=== PATIENT | female | born 1935 | race Caucasian/White ===

== ENCOUNTER 2017-04-08 10:17 | Observation (INO) | payer MEDICARE, OTHER ==
[2017-04-08] MEDS ORDERED: Ondansetron 4 MG/2 ML SDV IVPUSH ONE (10:39)
[2017-04-08] MEDS ORDERED: Sodium Chloride 0.9% 10 ML Syringe FLUSH PRN (10:39)
[2017-04-08] MEDS ORDERED: Sodium Chloride 0.9% 1,000 ML IV SCH (10:45)
--- NOTE | 2017-04-08 10:45 | EDM.PDOC ---
ED HPI GENERAL MEDICAL PROBLEM - General Chief Complaint: General Stated Complaint: [facility] Time Seen by Provider: 04/08/17 10:31 Source of Information: Reports: Patient, EMS History Limitations: Reports: No Limitations - History of Present Illness INITIAL COMMENTS - FREE TEXT/NARRATIVE: The patient says she was on her way to go outside and she lost her balance and fell. She did hit her head. She denies a headache and neck pain. She says she does get dizzy at times. She has no fever, chills, cough, congestion, runny nose chest pain or shortness of breath. She has no abdominal pain or dysuria but she has some nausea and vomiting. She denies any hip or arm pain. She has been eating and drinking okay but she has had generalized weakness. Onset: Sudden Duration: Minutes: Improves with: Reports: None Worsens with: Reports: None Context: Reports: Other (Fall) Associated Symptoms: Reports: Nausea/Vomiting, Weakness (Generalized). Denies: Cough, Fever/Chills, Shortness of Breath - Related Data Allergies Allergy/AdvReac Type Severity Reaction Status Date / Time No Known Allergies Allergy Verified 04/08/17 10:38 Home Meds: Home Meds Benazepril [Lotensin] 10 mg PO DAILY 04/08/17 [History] Ezetimibe [Zetia] 10 mg PO DAILY 04/08/17 [History] Simvastatin [Zocor] 40 mg PO DAILY 04/08/17 [History] amLODIPine [Norvasc] 5 mg PO DAILY 04/08/17 [History] metFORMIN HCl [Metformin HCl] 1,000 mg PO BID 04/08/17 [History] ED ROS GENERAL - Review of Systems Review Of Systems: See Below Constitutional: Reports: Weakness HEENT: Reports: No Symptoms Respiratory: Reports: No Symptoms Cardiovascular: Reports: No Symptoms Endocrine: Reports: No Symptoms GI/Abdominal: Reports: Diarrhea, Nausea, Vomiting. Denies: Abdominal Pain : Reports: No Symptoms Musculoskeletal: Reports: No Symptoms Skin: Reports: No Symptoms Neurological: Reports: Dizziness Psychiatric: Reports: No Symptoms ED EXAM, GENERAL - Physical Exam Exam: See Below Exam Limited By: No Limitations General Appearance: Alert, No Apparent Distress Ears: Normal External Exam Nose: Normal Inspection Throat/Mouth: Other (Dry mucus membranes) Head: Atraumatic, Normocephalic Neck: Normal Inspection Respiratory/Chest: No Respiratory Distress, Lungs Clear, Normal Breath Sounds Cardiovascular: Regular Rate, Rhythm, No Edema, Systolic Murmur GI/Abdominal: Soft, Non-Tender, No Organomegaly, No Mass Back Exam: Normal Inspection Extremities: Normal Inspection Neurological: Alert, Oriented, No Motor/Sensory Deficits Skin Exam: Warm, Dry EKG INTERPRETATION EKG Date: 04/08/17 Time: 11:17 Rhythm: NSR Rate (beats/min): 98 [place]: normal P-wave: present QRS: normal ST-T: normal QT: normal MS/PQ Interval: 1st degree heart block EKG Interpretation Comments: LVH Course - Vital Signs Last Recorded V/S: Last Vital Signs Temp 97.7 F 04/08/17 10:33 Pulse 123 H 04/08/17 10:33 Resp 26 H 04/08/17 10:33 BP 181/69 H 04/08/17 10:33 Pulse Ox 97 04/08/17 10:33 - Orders/Labs/Meds Orders: Active Orders 24 hr Category Date Time Status Cardiac Monitoring [RC] . DIRECTED Care 04/08/17 10:39 Active EKG Documentation Completion [RC] STAT Care 04/08/17 10:40 Active Insert Becker Catheter [Insert Urinary Catheter] [OM.PC] Care 04/08/17 11:05 Ordered Q24H Peripheral IV Care [RC] . DIRECTED Care 04/08/17 10:40 Active Urinary Catheter Assessment [RC] ASDIRECTED Care 04/08/17 11:05 Active CULTURE BLOOD [BC] Stat Lab 04/08/17 13:50 Ordered CULTURE BLOOD [BC] Stat Lab 04/08/17 13:50 Ordered Levofloxacin/Dextrose 5%-Water [Levaquin in D5W 750 MG/ Med 04/08/17 13:51 Active 150 ML] 750 mg Premix Bag 1 bag IV ONETIME Sodium Chloride 0.9% [Normal Saline] 1,000 ml Med 04/08/17 10:45 Active IV .BOLUS Sodium Chloride 0.9% [Normal Saline] 1,000 ml Med 04/08/17 13:45 Active IV ASDIRECTED Sodium Chloride 0.9% [Saline Flush] Med 04/08/17 10:39 Active 10 ml FLUSH ASDIRECTED PRN Blood Culture x2 Reflex Set [OM.PC] Stat Oth 04/08/17 13:50 Ordered ED Antiemetic Medication Reflex [OM.PC] Stat Ot 04/08/17 10:39 Ordered Peripheral IV Insertion Adult [OM.PC] Stat [facility] 04/08/17 10:39 Ordered Medication Orders Sodium Chloride (Normal Saline) 1,000 mls @ 1,000 mls/hr IV .BOLUS MINERVA Last Admin: 04/08/17 10:58 Dose: 1,000 mls/hr Sodium Chloride (Normal Saline) 1,000 mls @ 150 mls/hr IV ASDIRECTED MINERVA Last Admin: 04/08/17 13:43 Dose: 150 mls/hr Levofloxacin/Dextrose 750 mg/ (Premix) 150 mls @ 100 mls/hr IV ONETIME ONE Stop: 04/08/17 15:20 Sodium Chloride (Saline Flush) 10 ml FLUSH ASDIRECTED PRN PRN Reason: Keep Vein Open Last Admin: 04/08/17 10:50 Dose: 10 ml Labs: Laboratory Tests 04/08/17 04/08/17 04/08/17 Range/Units 11:04 11:04 11:04 WBC 10.93 H (3.98-10.04) K/mm3 RBC 3.85 L (3.98-5.22) M/mm3 Hgb 11.7 (11.2-15.7) gm/L Hct 35.6 (34.1-44.9) % MCV 92.5 (79.4-94.8) fl MCH 30.4 (25.6-32.2) pg MCHC 32.9 (32.2-35.5) g/dl RDW Std Deviation 47.4 H (36.4-46.3) fL Plt Count 369 (182-369) K/mm3 MPV 8.2 L (9.4-12.3) fl Neut % (Auto) 82.8 H (34.0-71.1) % Lymph % (Auto) 9.3 L (19.3-51.7) % [place] % (Auto) 6.2 (4.7-12.5) % Eos % (Auto) 0.9 (0.7-5.8) Baso % (Auto) 0.3 (0.1-1.2) % Neut # (Auto) 9.04 H (1.56-6.13) K/mm3 Lymph # (Auto) 1.02 L (1.18-3.74) K/mm3 [place] # (Auto) 0.68 H (0.24-0.36) K/mm3 Eos # (Auto) 0.10 (0.04-0.36) K/mm3 Baso # (Auto) 0.03 (0.01-0.08) K/mm3 Manual Slide Review Abnormal smear Sodium 132 L (136-145) mEq/L Potassium 3.9 (3.5-5.1) mEq/L Chloride 96 L (98-107) mEq/L Carbon Dioxide 19 L (21-32) mEq/L Anion Gap 20.9 H (5-15) BUN 7 (7-18) mg/dL Creatinine 0.5 L (0.55-1.02) mg/dL Est Cr Clr Drug Dosing 62.12 mL/min Estimated GFR (MDRD) > 60 (>60) mL/min BUN/Creatinine Ratio 14.0 (14-18) Glucose 115 (83-115) mg/dL Calcium 8.1 L (8.5-10.1) mg/dL Total Bilirubin 0.5 (0.2-1.0) mg/dL AST 17 (15-37) U/L ALT 14 (14-59) U/L Alkaline Phosphatase 50 (46-116) U/L Troponin I 0.047 (0.00-0.056) ng/mL B-Natriuretic Peptide 86 (0-100) pg/mL Total Protein 7.2 (6.4-8.2) g/dl Albumin 3.6 (3.4-5.0) g/dl Globulin 3.6 gm/dL Albumin/Globulin Ratio 1.0 (1-2) Urine Color (Yellow) Urine Appearance (Clear) Urine pH (5.0-8.0) Ur Specific [place] (1.005-1.030) Urine Protein (Negative) Urine Glucose (UA) (Negative) Urine Ketones (Negative) Urine Occult Blood (Negative) Urine Nitrite (Negative) Urine Bilirubin (Negative) Urine Urobilinogen (0.2-1.0) Ur Leukocyte Esterase (Negative) Urine RBC (0-5) /hpf Urine WBC (0-5) /hpf Ur Epithelial Cells (0-5) /hpf Urine Bacteria (FEW) /hpf Urine Mucus (FEW) /hpf 04/08/ Range/Units 11:10 WBC (3.98-10.04) K/mm3 RBC (3.98-5.22) M/mm3 Hgb (11.2-15.7) gm/L Hct (34.1-44.9) % MCV (79.4-94.8) fl MCH (25.6-32.2) pg MCHC (32.2-35.5) g/dl RDW Std Deviation (36.4-46.3) fL Plt Count (182-369) K/mm3 MPV (9.4-12.3) fl Neut % (Auto) (34.0-71.1) % Lymph % (Auto) (19.3-51.7) % [place] % (Auto) (4.7-12.5) % Eos % (Auto) (0.7-5.8) Baso % (Auto) (0.1-1.2) % Neut # (Auto) (1.56-6.13) K/mm3 Lymph # (Auto) (1.18-3.74) K/mm3 [place] # (Auto) (0.24-0.36) K/mm3 Eos # (Auto) (0.04-0.36) K/mm3 Baso # (Auto) (0.01-0.08) K/mm3 Manual Slide Review Sodium (136-145) mEq/L Potassium (3.5-5.1) mEq/L Chloride (98-107) mEq/L Carbon Dioxide (21-32) mEq/L Anion Gap (5-15) BUN (7-18) mg/dL Creatinine (0.55-1.02) mg/dL Est Cr Clr Drug Dosing mL/min Estimated GFR (MDRD) (>60) mL/min BUN/Creatinine Ratio (14-18) Glucose (83-115) mg/dL Calcium (8.5-10.1) mg/dL Total Bilirubin (0.2-1.0) mg/dL AST (15-37) U/L ALT (14-59) U/L Alkaline Phosphatase (46-116) U/L Troponin I (0.00-0.056) ng/mL B-Natriuretic Peptide (0-100) pg/mL Total Protein (6.4-8.2) g/dl Albumin (3.4-5.0) g/dl Globulin gm/dL Albumin/Globulin Ratio (1-2) Urine Color Yellow (Yellow) Urine Appearance Clear (Clear) Urine pH 6.0 (5.0-8.0) Ur Specific [place] 1.020 (1.005-1.030) Urine Protein 1+ H (Negative) Urine Glucose (UA) Negative (Negative) Urine Ketones 1+ H (Negative) Urine Occult Blood Negative (Negative) Urine Nitrite Negative (Negative) Urine Bilirubin Negative (Negative) Urine Urobilinogen 0.2 (0.2-1.0) Ur Leukocyte Esterase Negative (Negative) Urine RBC Not seen (0-5) /hpf Urine WBC 0-5 (0-5) /hpf Ur Epithelial Cells 0-5 (0-5) /hpf Urine Bacteria Not seen (FEW) /hpf Urine Mucus Not seen (FEW) /hpf Meds: Medications Generic Name Dose Route Start Last Admin Trade Name Freq PRN Reason Stop Dose Admin Sodium Chloride 1,000 mls @ 1,000 mls/hr 04/08/17 10:45 04/08/17 10:58 Normal Saline IV 1,000 mls/hr .BOLUS MINERVA Administration Sodium Chloride 1,000 mls @ 150 mls/hr 04/08/17 13:45 04/08/17 13:43 Normal Saline IV 150 mls/hr ASDIRECTED MINERVA Administration Levofloxacin/Dextrose 750 mg/ 150 mls @ 100 mls/hr 04/08/17 13:51 Premix IV 04/08/17 15:20 ONETIME ONE Sodium Chloride 10 ml 04/08/17 10:39 04/08/17 10:50 Saline Flush FLUSH 10 ml ASDIRECTED PRN Administration Keep Vein Open Discontinued Medications Generic Name Dose Route Start Last Admin Trade Name Freq PRN Reason Stop Dose Admin Ondansetron HCl 4 mg 04/08/17 10:39 04/08/17 11:00 Zofran IVPUSH 04/08/17 10:40 4 mg ONETIME ONE Administration - Re-Assessments/Exams Free Text/Narrative Re-Assessment/Exam: 04/08/17 10:49 I ordered an IV NS 1L bolus, zofran 4mg IV, labs, UA, EKG, and CT of her head. 04/08/17 14:01 Her EKG shows a NSR with LVH and nothing acute. The CT of her head shows mild senescent change, mild mucosal thickening and fluid within the left mastoid sinus most likely incidental if patient has no symptoms of mastoiditis, no acute intracranial abnormality is seen. No skull fracture is identified. Her WBC is elevated at 10.93. Her Na was a little low at 132. Her troponin is negative. Her BNP was negative. Her UA shows no UTI. Her CXR shows increasing lung markings from prior study most likely representing diffuse bilateral bronchitis as read by Dr Limon. She has bronchitis versus early pneumonia, nausea, vomiting, and dehydration. I have ordered blood cultures and levaquin 750mg IV. I feel the patient needs to be admitted. I called Dr Tejada and she agreed to the admission. Departure - Departure Time of Disposition: 14:10 Disposition: Refer to Observation Condition: good Clinical Impression: Dehydration, Bronchitis Fall Qualifiers: Encounter type: initial encounter Qualified Code(s): W19.XXXA - Unspecified fall, initial encounter Nausea and vomiting Qualifiers: Vomiting type: unspecified Vomiting Intractability: non-intractable Qualified Code(s): R11.2 - Nausea with vomiting, unspecified - Discharge Information Referrals: Pako Jalloh Jr, MD [Primary Care Provider] - Forms: ED Department Discharge - My Orders Last 24 Hours: My Active Orders 04/08/17 10:39 Cardiac Monitoring [RC] . DIRECTED Sodium Chloride 0.9% [Saline Flush] 10 ml FLUSH ASDIRECTED PRN ED Antiemetic Medication Reflex [OM.PC] Stat Peripheral IV Insertion Adult [OM.PC] Stat 04/08/17 10:40 EKG Documentation Completion [RC] STAT Peripheral IV Care [RC] . DIRECTED 04/08/17 10:45 Sodium Chloride 0.9% [Normal Saline] 1,000 ml IV .BOLUS 04/08/17 11:05 Insert Becker Catheter [Insert Urinary Catheter] [OM.PC] Q24H Urinary Catheter Assessment [RC] ASDIRECTED 04/08/17 13:45 Sodium Chloride 0.9% [Normal Saline] 1,000 ml IV ASDIRECTED 04/08/17 13:50 CULTURE BLOOD [BC] Stat CULTURE BLOOD [BC] Stat Blood Culture x2 Reflex Set [OM.PC] Stat 04/08/17 13:51 Levofloxacin/Dextrose 5%-Water [Levaquin in D5W 750 MG/150 ML] 750 mg Premix Bag 1 bag IV ONETIME - Assessment/Plan Last 24 Hours: My Active Orders 04/08/17 10:39 Cardiac Monitoring [RC] . DIRECTED Sodium Chloride 0.9% [Saline Flush] 10 ml FLUSH ASDIRECTED PRN ED Antiemetic Medication Reflex [OM.PC] Stat Peripheral IV Insertion Adult [OM.PC] Stat 04/08/17 10:40 EKG Documentation Completion [RC] STAT Peripheral IV Care [RC] . DIRECTED 04/08/17 10:45 Sodium Chloride 0.9% [Normal Saline] 1,000 ml IV .BOLUS 04/08/17 11:05 Insert Becker Catheter [Insert Urinary Catheter] [OM.PC] Q24H Urinary Catheter Assessment [RC] ASDIRECTED 04/08/17 13:45 Sodium Chloride 0.9% [Normal Saline] 1,000 ml IV ASDIRECTED 04/08/17 13:50 CULTURE BLOOD [BC] Stat CULTURE BLOOD [BC] Stat Blood Culture x2 Reflex Set [OM.PC] Stat 04/08/17 13:51 Levofloxacin/Dextrose 5%-Water [Levaquin in D5W 750 MG/150 ML] 750 mg Premix Bag 1 bag IV ONETIME
--- NOTE | 2017-04-08 11:59 | CT ---
Head CT Technique: Multiple axial sections through the brain were obtained. Intravenous contrast was not utilized. Comparison: No previous intracranial imaging is available. Findings: Ventricles along with basal cisterns and sulci over the convexities are moderately prominent. Very minimal diminished density is noted within portions of the periventricular white matter compatible with small vessel ischemic demyelination change. No other abnormal parenchymal densities are seen. No evidence of intracranial hemorrhage. No midline shift or mass effect is seen. Bone window settings were reviewed which shows no acute calvarial abnormality. Small amount of mucosal thickening and fluid is seen within the left mastoid sinus. Atherosclerotic calcifications are seen within the vertebral vessels and carotid siphon. Impression: 1. Mild senescent change as noted above. 2. Mild mucosal thickening and fluid within the left mastoid sinus most likely incidental if patient has no symptoms of mastoiditis. 3. No acute intracranial abnormality is seen. No skull fracture is identified. Diagnostic code #3
[2017-04-08] MEDS: Sodium Chloride 0.9% 1,000 ML IV SCH ×2 (13:43→20:39)
--- NOTE | 2017-04-08 13:49 | CR ---
Chest: Portable view of the chest was obtained. Comparison: Previous chest x-ray of 09/19/12. Heart size appears within normal limits. Tortuous thoracic aorta is seen. Lung markings are diffusely increased which are more prominent than prior exam. Bony structures are osteopenic. Mild degenerative change is scattered within the spine. Impression: 1. Increasing lung markings from prior study most likely representing diffuse bilateral bronchitis. Diagnostic code #3
[2017-04-08] MEDS ORDERED: Levofloxacin/Dextrose 5%-Water 750 MG in Premix Bag 1 BAG IV ONE (13:51)
[2017-04-08] MEDS ORDERED: Pneumococcal Polyvalent-23 Vaccine 0.5 ML SDV IM ONE (15:54)
[2017-04-08] MEDS ORDERED: Flu Vaccine 2016-17(36Mos+)/PF 60 MCG/0.5 ML Syringe IM ONE (15:54)
--- NOTE | 2017-04-08 16:41 | PCM.HP ---
H&P History of Present Illness - General Date of Service: 04/08/17 Admit Problem/Dx: Admission Diagnosis/Problem Admission Diagnosis/Problem Bronchitis Source of Information: Patient, Family, Provider History Limitations: Reports: No Limitations - History of Present Illness Initial Comments - Free Text/Narative: 81 year old female with a history of frequent falls presents with a complaint of generalized weakness. CXR suggest probable bronchitis, white blood cell ct is mildly elevated. The patient denies SOB, CP, fever/chills; however does admit to nausea/vomiting. She has also had dizziness. There has been no nasal congestion; she does complaint of a dry cough. Her UA is unremarkable. She will be admitted to observation. Onset of Symptoms: Reports: Sudden Symptom Onset Date: 04/08/17 Duration of Symptoms: Reports: Hour(s):, Getting Worse Location: Reports: Generalized Quality: Reports: Same as Previous Episode Severity: Moderate Improves with: Reports: Medication Worsens with: Reports: None Associated Symptoms: Reports: Malaise, Weakness - Related Data Allergies/Adverse Reactions: Allergies Allergy/AdvReac Type Severity Reaction Status Date / Time No Known Allergies Allergy Verified 04/08/17 10:38 Home Medications: Home Meds Benazepril [Lotensin] 10 mg PO DAILY 04/08/17 [History] Ezetimibe [Zetia] 10 mg PO DAILY 04/08/17 [History] Simvastatin [Zocor] 40 mg PO DAILY 04/08/17 [History] amLODIPine [Norvasc] 5 mg PO DAILY 04/08/17 [History] metFORMIN HCl [Metformin HCl] 1,000 mg PO BID 04/08/17 [History] Past Medical History - Past Health History Medical/Surgical History: Denies Medical/Surgical History HEENT History: Reports: Hard of Hearing Cardiovascular History: Reports: Hypertension 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: Endocrine/Metabolic History: Reports: Diabetes, Type II - Past Surgical History HEENT Surgical History: Reports: None Cardiovascular Surgical History: Reports: None GI Surgical History: Reports: Appendectomy, Cholecystectomy Endocrine Surgical History: Reports: None Dermatological Surgical History: Reports: None Social & Family History - Family History Family Medical History: Noncontributory - Tobacco Use Smoking Status *Q: Never Smoker Second Hand Smoke Exposure: No - Caffeine Use Caffeine Use: Reports: Coffee Other Caffeine Use: 1 pot a day Caffeine Use Comment: daily - Recreational Drug Use Recreational Drug Use: No H&P Review of Systems - Review of Systems: Review Of Systems: See Below General: Reports: Malaise, Weakness HEENT: Reports: No Symptoms Pulmonary: Reports: No Symptoms Cardiovascular: Reports: Lightheadedness Gastrointestinal: Reports: Nausea, Vomiting Genitourinary: Reports: No Symptoms Musculoskeletal: Reports: No Symptoms Skin: Reports: No Symptoms Psychiatric: Reports: No Symptoms Neurological: Reports: Gait Disturbance Hematologic/Lymphatic: Reports: No Symptoms Immunologic: Reports: No Symptoms Exam - Exam Exam: See Below - Vital Signs Vital Signs: Last Vital Signs Temp 36.5 C 04/08/17 15:43 Pulse 99 04/08/17 15:43 Resp 16 04/08/17 15:43 BP 150/57 H 04/08/17 15:43 Pulse Ox 98 04/08/17 15:43 Weight: 41.957 kg - Exam Quality Assessment: Supplemental Oxygen General: Alert, Oriented, Cooperative HEENT: Conjunctiva Clear, Nares Patent, Normal Nasal Septum, Pupils Equal, Pupils Reactive Neck: Supple, Trachea Midline Lungs: Normal Respiratory Effort, Decreased Breath Sounds (left posterior), Wheezing Cardiovascular: Regular Rate, Regular Rhythm Abdomen: Normal Bowel Sounds, Soft (Female) Exam: Deferred Rectal (Female) Exam: Deferred Back Exam: Normal Inspection Extremities: Normal Inspection Skin: Warm Neurological: Cranial Nerves Intact, Normal Speech Neuro Extensive - Mental Status: Alert, Oriented x3, Normal Mood/Affect, Normal Cognition, Memory Intact Neuro Extensive - Motor, Sensory, Reflexes: CN II-XII Intact Psychiatric: Alert, Normal Affect, Normal Mood - Patient Data Result Diagrams: 04/08/17 11:04 04/08/17 11:04 *Q Meaningful Use (ADM) - VTE *Q VTE Criteria *Q: - Stroke *Q Stroke Criteria *Q: - AMI *Q AMI Criteria *Q: - Problem List (1) Bronchitis SNOMED Code(s): 40451117 ICD Code: J40 - BRONCHITIS, NOT SPECIFIED ACUTE OR CHRONIC Status: Acute Current Visit: Yes (2) Dehydration SNOMED Code(s): 15791237 ICD Code: E86.0 - DEHYDRATION Status: Acute Current Visit: Yes (3) Fall SNOMED Code(s): 7038559, 221108217 ICD Code: W19.XXXA - UNSPECIFIED FALL, INITIAL ENCOUNTER Status: Acute Current Visit: Yes Qualifiers: Encounter type: initial encounter Qualified Code(s): W19.XXXA - Unspecified fall, initial encounter (4) Nausea and vomiting SNOMED Code(s): 53887054 ICD Code: R11.2 - NAUSEA WITH VOMITING, UNSPECIFIED Status: Acute Current Visit: Yes Qualifiers: Vomiting type: unspecified Vomiting Intractability: non-intractable Qualified Code(s): R11.2 - Nausea with vomiting, unspecified Problem List Initiated/Reviewed/Updated: Yes Orders Last 24hrs: Active Orders 24 hr Category Date Time Status Clear Liquid Diet [DIET] Diet 04/08/17 Dinner Active Medication Orders Sodium Chloride (Normal Saline) 1,000 mls @ 1,000 mls/hr IV .BOLUS [facility] Last Admin: 04/08/17 10:58 Dose: 1,000 mls/hr Sodium Chloride (Normal Saline) 1,000 mls @ 150 mls/hr IV ASDIRECTED MINERVA Last Admin: 04/08/17 13:43 Dose: 150 mls/hr Sodium Chloride (Saline Flush) 10 ml FLUSH ASDIRECTED PRN PRN Reason: Keep Vein Open Last Admin: 04/08/17 10:50 Dose: 10 ml Assessment/Plan Comment:: Impression: Unsteady gait, chronic URI with dehydration, query change in bowel habit Nausea/Vomiting/generalized weakness, etiology unknown Diabetes Mellitus, infrequently checks her blood sugar Hyponatremia Leukocytosis Plan: IVF Change ATB to Zithromax/Rocephin Antiemetic Clear Liquids SW re: Home Health//PT/OT DVT/GI prophylaxis
[2017-04-08] MEDS ORDERED: 50% Dextrose in Water 50 ML Syringe IVPUSH PRN (16:49)
[2017-04-08] MEDS ORDERED: Metoclopramide 10 MG/2 ML SDV IVPUSH PRN (17:30)
[2017-04-08] MEDS ORDERED: Ondansetron 4 MG/2 ML SDV IVPUSH PRN (17:30)
[2017-04-08] MEDS: Insulin Aspart 100 Units/ML 3 ML Pen SUBCUT SCH ×2 (18:34→22:24)
[2017-04-08] MEDS: Pantoprazole 40 MG Vial IVPUSH SCH (18:37)
[2017-04-08] MEDS: METFORMIN 1000 MG PO SCH (18:39)
[2017-04-08] MEDS ORDERED: Temazepam 7.5 MG Cap PO PRN (18:45)
[2017-04-08] MEDS ORDERED: Benzonatate 100 MG Cap PO PRN (18:45)
[2017-04-08] MEDS ORDERED: Non-Formulary Medication 1 Each (Metformin Hcl [Metformin Hcl] 1,000 MG) PO SCH (21:00)
[2017-04-08] MEDS: Simvastatin 40 MG Tab PO SCH (21:25)
[2017-04-09] MEDS: Pantoprazole 40 MG Vial IVPUSH SCH ×2 (06:15→17:29)
[2017-04-09] MEDS: METFORMIN 1000 MG PO SCH ×2 (06:16→16:54)
[2017-04-09] MEDS: Insulin Aspart 100 Units/ML 3 ML Pen SUBCUT SCH ×4 (06:20→21:08)
[2017-04-09] MEDS: EZETIMIBE 10 MG PO SCH (08:47)
[2017-04-09] MEDS: Azithromycin 500 MG in Sodium Chloride 0.9% 250 ML IV SCH (08:48)
[2017-04-09] MEDS: Enoxaparin 40 MG/0.4 ML Syringe SUBCUT SCH (08:48)
[2017-04-09] MEDS ORDERED: cefTRIAXone 2 GM in Sodium Chloride 0.9% 100 ML IV SCH (10:00)
[2017-04-09] MEDS ORDERED: Magnesium Sulfate/Water 2 GM in Premix Bag 1 BAG IV ONE (10:15)
--- NOTE | 2017-04-09 10:50 | PCM.PN ---
- General Info Date of Service: 04/09/17 Functional Status: Reports: pain controlled, tolerating diet, ambulating, urinating - Review of Systems General: Reports: Weakness, Fatigue HEENT: Reports: no symptoms Pulmonary: Reports: no symptoms Cardiovascular: Reports: No Symptoms Gastrointestinal: Reports: No symptoms Genitourinary: Reports: no symptoms Musculoskeletal: Reports: no symptoms Skin: Reports: no symptoms Neurological: Reports: Dizziness Psychiatric: Reports: no symptoms - Patient Data Vitals - most recent: Last Vital Signs Temp 36.9 C 04/09/17 08:10 Pulse 75 04/09/17 08:10 Resp 16 04/09/17 08:10 BP 128/86 04/09/17 08:47 Pulse Ox 98 04/09/17 08:10 Orthostatic Blood Pressure [ 118/50 Standing] Orthostatic Blood Pressure [ 126/56 Sitting] Orthostatic Blood Pressure [ 106/77 Supine] Weight - most recent: 41.64 kg I&O - last 24 hours: Intake & Output 04/08/17 04/09/17 04/09/17 22:59 06:59 14:59 Intake Total 120 2800 Output Total 1100 Balance 120 1700 Lab Results last 24 hrs: Laboratory Results - last 24 hr 04/08/17 04/09/17 04/09/17 Range/Units 22:22 06:19 06:32 WBC 11.00 H (3.98-10.04) K/mm3 RBC 3.49 L (3.98-5.22) M/mm3 Hgb 10.5 L (11.2-15.7) gm/L Hct 31.8 L (34.1-44.9) % MCV 91.1 (79.4-94.8) fl MCH 30.1 (25.6-32.2) pg MCHC 33.0 (32.2-35.5) g/dl RDW Std Deviation 45.4 (36.4-46.3) fL Plt Count 361 (182-369) K/mm3 MPV 8.2 L (9.4-12.3) fl Neut % (Auto) 81.6 H (34.0-71.1) % Lymph % (Auto) 8.1 L (19.3-51.7) % [place] % (Auto) 9.6 (4.7-12.5) % Eos % (Auto) 0.4 L (0.7-5.8) Baso % (Auto) 0.1 (0.1-1.2) % Neut # (Auto) 8.98 H (1.56-6.13) K/mm3 Lymph # (Auto) 0.89 L (1.18-3.74) K/mm3 [place] # (Auto) 1.06 H (0.24-0.36) K/mm3 Eos # (Auto) 0.04 (0.04-0.36) K/mm3 Baso # (Auto) 0.01 (0.01-0.08) K/mm3 Manual Slide Review Abnormal smear Sodium (136-145) mEq/L Potassium (3.5-5.1) mEq/L Chloride (98-107) mEq/L Carbon Dioxide (21-32) mEq/L Anion Gap (5-15) BUN (7-18) mg/dL Creatinine (0.55-1.02) mg/dL Est Cr Clr Drug Dosing mL/min Estimated GFR (MDRD) (>60) mL/min BUN/Creatinine Ratio (14-18) Glucose (83-115) mg/dL POC Glucose 95 104 (83-110) mg/dL Hemoglobin A1c (4.50-6.20) % Calcium (8.5-10.1) mg/dL Magnesium (1.8-2.4) mg/dl C-Reactive Protein (<1.0) mg/dL TSH 3rd Generation (0.358-3.74) uIU/mL Mycoplasma pneumon IgM (NEGATIVE) 04/09/17 04/09/17 04/09/17 Range/Units 06:32 06:32 06:32 WBC (3.98-10.04) K/mm3 RBC (3.98-5.22) M/mm3 Hgb (11.2-15.7) gm/L Hct (34.1-44.9) % MCV (79.4-94.8) fl MCH (25.6-32.2) pg MCHC (32.2-35.5) g/dl RDW Std Deviation (36.4-46.3) fL Plt Count (182-369) K/mm3 MPV (9.4-12.3) fl Neut % (Auto) (34.0-71.1) % Lymph % (Auto) (19.3-51.7) % [place] % (Auto) (4.7-12.5) % Eos % (Auto) (0.7-5.8) Baso % (Auto) (0.1-1.2) % Neut # (Auto) (1.56-6.13) K/mm3 Lymph # (Auto) (1.18-3.74) K/mm3 [place] # (Auto) (0.24-0.36) K/mm3 Eos # (Auto) (0.04-0.36) K/mm3 Baso # (Auto) (0.01-0.08) K/mm3 Manual Slide Review Sodium 132 L (136-145) mEq/L Potassium 3.8 (3.5-5.1) mEq/L Chloride 96 L (98-107) mEq/L Carbon Dioxide 22 (21-32) mEq/L Anion Gap 17.8 H (5-15) BUN 4 L (7-18) mg/dL Creatinine 0.4 L (0.55-1.02) mg/dL Est Cr Clr Drug Dosing 71.28 mL/min Estimated GFR (MDRD) > 60 (>60) mL/min BUN/Creatinine Ratio 10.0 L (14-18) Glucose 88 (83-115) mg/dL POC Glucose (83-110) mg/dL Hemoglobin A1c 5.20 (4.50-6.20) % Calcium 8.4 L (8.5-10.1) mg/dL Magnesium 1.0 L (1.8-2.4) mg/dl C-Reactive Protein 0.5 (<1.0) mg/dL TSH 3rd Generation 2.233 (0.358-3.74) uIU/mL Mycoplasma pneumon IgM Negative (NEGATIVE) Uli Results last 24 hrs: Microbiology 04/08/17 18:02 Influenza Type A Antigen Screen - Final Nasopharyngeal Swab - Nare, Left NEGATIVE INFLUENZA A VIRUS AG Influenza Type B Antigen Screen - Final NEGATIVE INFLUENZA B VIRUS AG Med Orders - Current: Current Medications Amlodipine Besylate (Norvasc) 5 mg PO DAILY [facility] Last Admin: 04/09/17 08:47 Dose: 5 mg Benzonatate (Tessalon Perles) 200 mg PO TID PRN PRN Reason: Cough Dextrose/Water (Dextrose 50% In Water) 50 ml IVPUSH ASDIRECTED PRN PRN Reason: Hypoglycemia Ezetimibe (Zetia) 10 mg PO DAILY [facility] [place] Last Admin: 04/09/17 08:47 Dose: 10 mg Enoxaparin Sodium (Lovenox) 40 mg SUBCUT DAILY [facility] Last Admin: 04/09/17 08:48 Dose: 40 mg Azithromycin 500 mg/ Sodium (Chloride) 250 mls @ 250 mls/hr IV Q24H [facility] Last Admin: 04/09/17 08:48 Dose: 250 mls/hr Ceftriaxone Sodium 2 gm/ (Sodium Chloride) 100 mls @ 200 mls/hr IV Q24H [facility] Last Admin: 04/09/17 10:04 Dose: 200 mls/hr Magnesium Sulfate 2 gm/ Premix 50 mls @ 25 mls/hr IV ONETIME ONE Stop: 04/09/17 12:14 Insulin Aspart (Novolog) 0 unit SUBCUT QIDACANDBED [facility] [place] PRN Reason: Protocol Last Admin: 04/09/17 06:20 Dose: Not Given Metoclopramide HCl (Reglan) 10 mg IVPUSH Q6H PRN PRN Reason: Nausea/Vomiting Metformin 1000 Mg (Tablet Own Med) 1,000 mg PO BIDMEALS [facility] Last Admin: 04/09/17 06:16 Dose: 1,000 mg Ondansetron HCl (Zofran) 4 mg IVPUSH Q8H PRN PRN Reason: Nausea/Vomiting Oral Electrolytes (Thermotabs) 1 each PO BID [facility] Stop: 04/11/17 21:01 Pantoprazole Sodium (Protonix Iv) 40 mg IVPUSH Q12H [facility] Last Admin: 04/09/17 06:15 Dose: 40 mg Simvastatin (Zocor) 40 mg PO BEDTIME [facility] Last Admin: 04/08/17 21:25 Dose: 40 mg Sodium Chloride (Saline Flush) 10 ml FLUSH ASDIRECTED PRN PRN Reason: Keep Vein Open Last Admin: 04/08/17 10:50 Dose: 10 ml Temazepam (Restoril) 7.5 mg PO BEDTIME PRN PRN Reason: Insomnia Discontinued Medications Sodium Chloride (Normal Saline) 1,000 mls @ 1,000 mls/hr IV .BOLUS [facility] [place] Last Admin: 04/08/17 10:58 Dose: 1,000 mls/hr Sodium Chloride (Normal Saline) 1,000 mls @ 150 mls/hr IV ASDIRECTED [facility] Last Admin: 04/08/17 20:39 Dose: 150 mls/hr Levofloxacin/Dextrose 750 mg/ (Premix) 150 mls @ 100 mls/hr IV ONETIME ONE Stop: 04/08/17 15:20 Last Admin: 04/08/17 14:25 Dose: 100 mls/hr Influenza Virus Vaccine (Fluzone/Fluarix Vaccine) 60 mcg IM .ONCE ONE Stop: 04/08/17 15:55 Non-Formulary Medication (Metformin Hcl [Metformin Hcl]) 1,000 mg PO BID [facility] Ondansetron HCl (Zofran) 4 mg IVPUSH ONETIME ONE Stop: 04/08/17 10:40 Last Admin: 04/08/17 11:00 Dose: 4 mg Pneumococcal Polyvalent Vaccine (Pneumovax 23) 0.5 ml IM .ONCE ONE Stop: 04/08/17 15:55 - Exam Quality Assessment: DVT prophylaxis General: alert, oriented, cooperative, no acute distress HEENT: Pupils equal, Pupils reactive, EOMI Neck: supple, trachea midline Lungs: Normal respiratory effort Cardiovascular: Regular Rate, Regular Rhythm Abdomen: bowel sounds present, soft, no tenderness, no distension (Female) Exam: Deferred Back Exam: Normal Inspection Extremities: normal pulses Skin: warm Neurological: no new focal deficit, normal gait, normal speech Psy/Mental Status: alert, normal affect, normal mood - Problem List & Annotations (1) Bronchitis SNOMED Code(s): 03305188 Code(s): J40 - BRONCHITIS, NOT SPECIFIED ACUTE OR CHRONIC Status: Acute Current Visit: Yes (2) Dehydration SNOMED Code(s): 60187959 Code(s): E86.0 - DEHYDRATION Status: Acute Current Visit: Yes (3) Fall SNOMED Code(s): 1099826, 329301465 Code(s): W19.XXXA - UNSPECIFIED FALL, INITIAL ENCOUNTER Status: Acute Current Visit: Yes Qualifiers: Encounter type: initial encounter Qualified Code(s): W19.XXXA - Unspecified fall, initial encounter (4) Nausea and vomiting SNOMED Code(s): 37191351 Code(s): R11.2 - NAUSEA WITH VOMITING, UNSPECIFIED Status: Acute Current Visit: Yes Qualifiers: Vomiting type: unspecified Vomiting Intractability: non-intractable Qualified Code(s): R11.2 - Nausea with vomiting, unspecified - Problem List Review Problem List Initiated/Reviewed/Updated: Yes - My Orders Last 24 Hours: My Active Orders 04/08/17 16:42 Blood Glucose Check, Bedside [RC] BIDAC 04/08/17 16:49 Accu Check [Blood Glucose Check, Bedside] [RC] QIDACANDBED Dextrose 50% in Water 50 ml IVPUSH ASDIRECTED PRN 04/08/17 16:51 Activity as Tolerated [RC] .Routine 04/08/17 16:53 Diabetes Education [RC] DAILY 04/08/17 16:56 Consult to Occupational Therapy [OT Evaluation and Treatment] [CONS] Routine Consult to Physical Therapy [PT Evaluation and Treatment] [CONS] Routine 04/08/17 17:00 Insulin Aspart [NovoLOG] See Protocol SUBCUT QIDACANDBED Resuscitation Status Routine 04/08/17 17:21 Vital Signs [RC] 09,15,21,03 04/08/17 17:30 Metoclopramide [Reglan] 10 mg IVPUSH Q6H PRN Ondansetron [Zofran] 4 mg IVPUSH Q8H PRN 04/08/17 18:00 Pantoprazole [ProTONIX IV] 40 mg IVPUSH Q12H 04/08/17 18:08 Antiembolic Devices [RC] BID MANUELA Hose [Antiembolic Hose] [OM.PC] Routine 04/08/17 18:23 metFORMIN HCl [Metformin HCl] 1,000 mg PO BIDMEALS 04/08/17 18:45 Benzonatate [Tessalon Perles] 200 mg PO TID PRN Temazepam [Restoril] 7.5 mg PO BEDTIME PRN 04/08/17 21:00 Simvastatin [Zocor] 40 mg PO BEDTIME 04/08/17 Dinner Clear Liquid Diet [DIET] 04/09/17 09:00 Consult to Gym Supervisor [CONS] Routine Azithromycin [Zithromax] 500 mg Sodium Chloride 0.9% [Normal Saline] 250 ml IV Q24H Enoxaparin [Lovenox] 40 mg SUBCUT DAILY Ezetimibe [Zetia] 10 mg PO DAILY amLODIPine [Norvasc] 5 mg PO DAILY 04/09/17 10:00 cefTRIAXone [Rocephin] 2 gm Sodium Chloride 0.9% [Normal Saline] 100 ml IV Q24H 04/09/17 10:15 Magnesium Sulfate/Water [Magnesium Sulfate 2 GM in Water 50 ML] 2 gm Premix Bag 1 bag IV ONETIME 04/09/17 10:30 Potassium Chloride/NaCl [Thermotabs] 1 each PO BID 04/10/17 05:00 CBC WITH AUTO DIFF [HEME] DAILY MAGNESIUM [CHEM] DAILY 04/10/17 05:52 BASIC METABOLIC PANEL,BMP [CHEM] DAILY 04/10/17 08:00 CXR [Chest 2V] [CR] Routine 04/11/17 07:00 CBC W/O DIFF,HEMOGRAM [HEME] MOTH@0700 04/15/17 07:00 CBC W/O DIFF,HEMOGRAM [HEME] MOTH@0700 04/18/17 07:00 CBC W/O DIFF,HEMOGRAM [HEME] MOTH@0700 04/22/17 07:00 CBC W/O DIFF,HEMOGRAM [HEME] MOTH@0700 04/25/17 07:00 CBC W/O DIFF,HEMOGRAM [HEME] MOTH@0700 04/29/17 07:00 CBC W/O DIFF,HEMOGRAM [HEME] MOTH@0700 - Plan Plan:: Impression: Unsteady gait, chronic URI with dehydration Negative orthostatics Diabetes Mellitus, infrequently checks her blood sugar Hyponatremia Leukocytosis Plan: IVF Change ATB to Zithromax/Rocephin Antiemetic Heart healthy SW re: Home Health, possible assisted living//PT/OT DVT/GI prophylaxis Continue observation
[2017-04-09] MEDS: Potassium Chloride/Sodium Chloride Tab PO SCH ×2 (10:57→21:07)
[2017-04-09] MEDS: Simvastatin 40 MG Tab PO SCH (21:07)
[2017-04-10] MEDS: Pantoprazole 40 MG Vial IVPUSH SCH (06:21)
[2017-04-10] MEDS: Insulin Aspart 100 Units/ML 3 ML Pen SUBCUT SCH ×2 (06:50→10:43)
[2017-04-10] MEDS ORDERED: cefTRIAXone 1 GM in Sodium Chloride 0.9% 100 ML IV SCH ×2 (07:05→10:00)
[2017-04-10 08:30] VITALS: BP 125/54
[2017-04-10] MEDS: Enoxaparin 40 MG/0.4 ML Syringe SUBCUT SCH (08:55)
[2017-04-10] MEDS: Potassium Chloride/Sodium Chloride Tab PO SCH (08:55)
[2017-04-10] MEDS: EZETIMIBE 10 MG PO SCH (08:55)
[2017-04-10] MEDS: Azithromycin 500 MG in Sodium Chloride 0.9% 250 ML IV SCH (08:56)
[2017-04-10] MEDS ORDERED: Pantoprazole 40 MG Tab.CR PO SCH ×2 (09:39→18:00)
--- NOTE | 2017-04-10 11:43 | CR ---
Chest: Two views of the chest were obtained. Comparison: Previous chest x-ray 04/08/17. Diffuse interstitial change is seen throughout both lungs. Findings are fairly stable from most recent exam. Gas dilated bowel is seen beneath the hemidiaphragms possibly due to ileus. Heart does not appear enlarged. Bony structures are within normal limits for the patient's age. Impression: 1. Diffuse interstitial change throughout both lungs remaining stable from previous exam. 2. Slightly air-filled loops of bowel within the abdomen possibly due to ileus. Diagnostic code #3
[2017-04-10] MEDS ORDERED: Magnesium Oxide 400 MG Tab PO SCH (11:45)
--- NOTE | 2017-04-10 12:23 | PCM.DCSUM1 ---
Discharge Summary - Hospital Course Free Text/Narrative:: 81 year old female with frequent falls, was treated for a URI and AUTI during her observation stay. Adjustment was made of her metformin, the patient had occasional asymptomatic hypoglycemia. She was assessed by PT/OT, a consult was completed. She is being DC to [facility] with home health. A face to face has been performed pre DC. Primary Dx Acute bronchitis AUTI Dehydration Activity Up with use of walker or with assistance Diet Heart healthy Consult PT/OT Outpatient: Home Health Follow up 2-[address] Shubham Hodge Resume home meds, Metformin decreased to 500 mg BID Ceftin 500 mg BID for 1 week Mag Oxide 400 mg BID for 2 weeks. - Discharge Data Discharge Date: 04/10/17 Discharge Disposition: Home, Self-Care 01 Condition: Good - Discharge Diagnosis/Problem(s) (1) Bronchitis SNOMED Code(s): 59520704 ICD Code: J40 - BRONCHITIS, NOT SPECIFIED ACUTE OR CHRONIC Status: Acute (2) Dehydration SNOMED Code(s): 99129196 ICD Code: E86.0 - DEHYDRATION Status: Acute (3) Fall SNOMED Code(s): 1850133, 913044960 ICD Code: W19.XXXA - UNSPECIFIED FALL, INITIAL ENCOUNTER Status: Acute Qualifiers: Qualified Code(s): W19.XXXA - Unspecified fall, initial encounter (4) Nausea and vomiting SNOMED Code(s): 96143964 ICD Code: R11.2 - NAUSEA WITH VOMITING, UNSPECIFIED Status: Acute Qualifiers: Qualified Code(s): R11.2 - Nausea with vomiting, unspecified - Patient Summary/Data Consults: Consultations 04/08/17 16:56 Consult to Occupational Therapy [OT Evaluation and Treatment] [CONS] Routine Consult to Physical Therapy [PT Evaluation and Treatment] [CONS] Routine 04/09/17 09:00 Consult to Disaster Recovery Analyst [CONS] Routine - Patient Instructions Diet: Heart Healthy Diet Activity: As Tolerated Driving: Do Not Drive Showering/Bathing: March Shower Notify Provider of: Increased Pain - Discharge Plan Prescriptions/Med Rec: Benazepril [Lotensin] 10 mg PO DAILY #30 tablet Magnesium Oxide 400 mg PO BID #30 tablet Home Medications: Home Meds Ezetimibe [Zetia] 10 mg PO DAILY 04/08/17 [History] Simvastatin [Zocor] 40 mg PO DAILY 04/08/17 [History] amLODIPine [Norvasc] 5 mg PO DAILY 04/08/17 [History] Benazepril [Lotensin] 10 mg PO DAILY #30 tablet 04/10/17 [Rx] Magnesium Oxide 400 mg PO BID #30 tablet 04/10/17 [Rx] metFORMIN HCl [Metformin HCl] 500 mg PO BID #0 04/10/17 [Rx] Patient Handouts: Dehydration, Adult, [id number], Acute Bronchitis, Easy-to- Read Referrals: Pako Jalloh Jr, MD [Primary Care Provider] - (Please see Dr. Jalloh at [facility] on Monday April 17, 2017 with a 2:15 PM check-in.) - Discharge Summary/Plan Comment DC Time >30 min.: No - General Info Date of Service: 04/08/17 Functional Status: Reports: pain controlled, tolerating diet, ambulating, urinating - Review of Systems General: Reports: No Symptoms HEENT: Reports: no symptoms Pulmonary: Reports: no symptoms Cardiovascular: Reports: No Symptoms Gastrointestinal: Reports: No symptoms Genitourinary: Reports: no symptoms Musculoskeletal: Reports: no symptoms Skin: Reports: no symptoms Neurological: Reports: No Symptoms Psychiatric: Reports: no symptoms - Patient Data Vitals - Most Recent: Last Vital Signs Temp 37.0 C 04/10/17 08:29 Pulse 87 04/10/17 08:29 Resp 20 04/10/17 08:29 BP 125/54 L 04/10/17 08:55 Pulse Ox 98 04/10/17 08:29 Orthostatic Blood Pressure [ 118/50 Standing] Orthostatic Blood Pressure [ 126/56 Sitting] Orthostatic Blood Pressure [ 106/77 Supine] Weight - Most Recent: 40.914 kg I&O - Last 24 hours: Intake & Output 04/09/17 04/10/17 04/10/17 22:59 06:59 14:59 Intake Total 1105 300 320 Output Total 600 900 Balance 505 -600 320 Lab Results - Last 24 hrs: Laboratory Results - last 24 hr 04/09/17 04/09/17 04/10/17 Range/Units 16:52 21:00 06:23 WBC (3.98-10.04) K/mm3 RBC (3.98-5.22) M/mm3 Hgb (11.2-15.7) gm/L Hct (34.1-44.9) % MCV (79.4-94.8) fl MCH (25.6-32.2) pg MCHC (32.2-35.5) g/dl RDW Std Deviation (36.4-46.3) fL Plt Count (182-369) K/mm3 MPV (9.4-12.3) fl Neut % (Auto) (34.0-71.1) % Lymph % (Auto) (19.3-51.7) % [place] % (Auto) (4.7-12.5) % Eos % (Auto) (0.7-5.8) Baso % (Auto) (0.1-1.2) % Neut # (Auto) (1.56-6.13) K/mm3 Lymph # (Auto) (1.18-3.74) K/mm3 [place] # (Auto) (0.24-0.36) K/mm3 Eos # (Auto) (0.04-0.36) K/mm3 Baso # (Auto) (0.01-0.08) K/mm3 Sodium (136-145) mEq/L Potassium (3.5-5.1) mEq/L Chloride (98-107) mEq/L Carbon Dioxide (21-32) mEq/L Anion Gap (5-15) BUN (7-18) mg/dL Creatinine (0.55-1.02) mg/dL Est Cr Clr Drug Dosing mL/min Estimated GFR (MDRD) (>60) mL/min BUN/Creatinine Ratio (14-18) Glucose (83-115) mg/dL POC Glucose 79 L 78 L 68 L (83-110) mg/dL Calcium (8.5-10.1) mg/dL Magnesium (1.8-2.4) mg/dl 04/10/17 04/10/17 04/10/17 Range/Units 06:50 06:50 06:50 WBC 8.10 (3.98-10.04) K/mm3 RBC 3.60 L (3.98-5.22) M/mm3 Hgb 11.0 L (11.2-15.7) gm/L Hct 32.9 L (34.1-44.9) % MCV 91.4 (79.4-94.8) fl MCH 30.6 (25.6-32.2) pg MCHC 33.4 (32.2-35.5) g/dl RDW Std Deviation 47.7 H (36.4-46.3) fL Plt Count 380 H (182-369) K/mm3 MPV 8.1 L (9.4-12.3) fl Neut % (Auto) 75.0 H (34.0-71.1) % Lymph % (Auto) 11.5 L (19.3-51.7) % [place] % (Auto) 11.9 (4.7-12.5) % Eos % (Auto) 1.2 (0.7-5.8) Baso % (Auto) 0.2 (0.1-1.2) % Neut # (Auto) 6.07 (1.56-6.13) K/mm3 Lymph # (Auto) 0.93 L (1.18-3.74) K/mm3 [place] # (Auto) 0.96 H (0.24-0.36) K/mm3 Eos # (Auto) 0.10 (0.04-0.36) K/mm3 Baso # (Auto) 0.02 (0.01-0.08) K/mm3 Sodium 134 L (136-145) mEq/L Potassium 3.6 (3.5-5.1) mEq/L Chloride 97 L (98-107) mEq/L Carbon Dioxide 23 (21-32) mEq/L Anion Gap 17.6 H (5-15) BUN 6 L (7-18) mg/dL Creatinine 0.5 L (0.55-1.02) mg/dL Est Cr Clr Drug Dosing 56.03 mL/min Estimated GFR (MDRD) > 60 (>60) mL/min BUN/Creatinine Ratio 12.0 L (14-18) Glucose 127 H (83-115) mg/dL POC Glucose (83-110) mg/dL Calcium 8.9 (8.5-10.1) mg/dL Magnesium 1.4 L (1.8-2.4) mg/dl 04/10/17 Range/Units 10:42 WBC (3.98-10.04) K/mm3 RBC (3.98-5.22) M/mm3 Hgb (11.2-15.7) gm/L Hct (34.1-44.9) % MCV (79.4-94.8) fl MCH (25.6-32.2) pg MCHC (32.2-35.5) g/dl RDW Std Deviation (36.4-46.3) fL Plt Count (182-369) K/mm3 MPV (9.4-12.3) fl Neut % (Auto) (34.0-71.1) % Lymph % (Auto) (19.3-51.7) % [place] % (Auto) (4.7-12.5) % Eos % (Auto) (0.7-5.8) Baso % (Auto) (0.1-1.2) % Neut # (Auto) (1.56-6.13) K/mm3 Lymph # (Auto) (1.18-3.74) K/mm3 [place] # (Auto) (0.24-0.36) K/mm3 Eos # (Auto) (0.04-0.36) K/mm3 Baso # (Auto) (0.01-0.08) K/mm3 Sodium (136-145) mEq/L Potassium (3.5-5.1) mEq/L Chloride (98-107) mEq/L Carbon Dioxide (21-32) mEq/L Anion Gap (5-15) BUN (7-18) mg/dL Creatinine (0.55-1.02) mg/dL Est Cr Clr Drug Dosing mL/min Estimated GFR (MDRD) (>60) mL/min BUN/Creatinine Ratio (14-18) Glucose (83-115) mg/dL POC Glucose 129 H (83-110) mg/dL Calcium (8.5-10.1) mg/dL Magnesium (1.8-2.4) mg/dl Med Orders - Current: Current Medications Discontinued Medications Amlodipine Besylate (Norvasc) 5 mg PO DAILY [facility] Last Admin: 04/10/17 08:55 Dose: 5 mg Benzonatate (Tessalon Perles) 200 mg PO TID PRN PRN Reason: Cough Dextrose/Water (Dextrose 50% In Water) 50 ml IVPUSH ASDIRECTED PRN PRN Reason: Hypoglycemia Ezetimibe (Zetia) 10 mg PO DAILY [facility] Last Admin: 04/10/17 08:55 Dose: 10 mg Enoxaparin Sodium (Lovenox) 40 mg SUBCUT DAILY [facility] Last Admin: 04/10/17 08:55 Dose: 40 mg Sodium Chloride (Normal Saline) 1,000 mls @ 1,000 mls/hr IV .BOLUS [facility] Last Admin: 04/08/17 10:58 Dose: 1,000 mls/hr Sodium Chloride (Normal Saline) 1,000 mls @ 150 mls/hr IV ASDIRECTED [facility] Last Admin: 04/08/17 20:39 Dose: 150 mls/hr Levofloxacin/Dextrose 750 mg/ (Premix) 150 mls @ 100 mls/hr IV ONETIME ONE Stop: 04/08/17 15:20 Last Admin: 04/08/17 14:25 Dose: 100 mls/hr Azithromycin 500 mg/ Sodium (Chloride) 250 mls @ 250 mls/hr IV Q24H [facility] Last Admin: 04/10/17 08:56 Dose: 250 mls/hr Ceftriaxone Sodium 2 gm/ (Sodium Chloride) 100 mls @ 200 mls/hr IV Q24H [facility] Last Admin: 04/09/17 10:04 Dose: 200 mls/hr Magnesium Sulfate 2 gm/ Premix 50 mls @ 25 mls/hr IV ONETIME ONE Stop: 04/09/17 12:14 Last Admin: 04/09/17 10:57 Dose: 25 mls/hr Ceftriaxone Sodium 1 gm/ (Sodium Chloride) 100 mls @ 200 mls/hr IV Q24H [facility] Ceftriaxone Sodium 1 gm/ (Sodium Chloride) 100 mls @ 200 mls/hr IV Q24H [facility] Last Admin: 04/10/17 09:00 Dose: 200 mls/hr Influenza Virus Vaccine (Fluzone/Fluarix Vaccine) 60 mcg IM .ONCE ONE Stop: 04/08/17 15:55 Insulin Aspart (Novolog) 0 unit SUBCUT QIDACANDBED [facility] PRN Reason: Protocol Last Admin: 04/10/17 10:43 Dose: Not Given Magnesium Oxide (Magnesium Oxide) 400 mg PO BID [facility] Metoclopramide HCl (Reglan) 10 mg IVPUSH Q6H PRN PRN Reason: Nausea/Vomiting Non-Formulary Medication (Metformin Hcl [Metformin Hcl]) 1,000 mg PO BID [facility] Metformin 1000 Mg (Tablet Own Med) 1,000 mg PO BIDMEALS [facility] Last Admin: 04/09/17 16:54 Dose: Not Given Ondansetron HCl (Zofran) 4 mg IVPUSH ONETIME ONE Stop: 04/08/17 10:40 Last Admin: 04/08/17 11:00 Dose: 4 mg Ondansetron HCl (Zofran) 4 mg IVPUSH Q8H PRN PRN Reason: Nausea/Vomiting Oral Electrolytes (Thermotabs) 1 each PO BID [facility] Stop: 04/11/17 21:01 Last Admin: 04/10/17 08:55 Dose: 1 each Pantoprazole Sodium (Protonix Iv) 40 mg IVPUSH Q12H [facility] Last Admin: 04/10/17 06:21 Dose: 40 mg Pantoprazole Sodium (Protonix) 40 mg PO Q12H [facility] Pantoprazole Sodium (Protonix) 40 mg PO Q12H [facility] Pneumococcal Polyvalent Vaccine (Pneumovax 23) 0.5 ml IM .ONCE ONE Stop: 04/08/17 15:55 Simvastatin (Zocor) 40 mg PO BEDTIME [facility] Last Admin: 04/09/17 21:07 Dose: 40 mg Sodium Chloride (Saline Flush) 10 ml FLUSH ASDIRECTED PRN PRN Reason: Keep Vein Open Last Admin: 04/08/17 10:50 Dose: 10 ml Temazepam (Restoril) 7.5 mg PO BEDTIME PRN PRN Reason: Insomnia - Exam Quality Assessment: Reports: DVT prophylaxis General: Reports: alert, oriented, cooperative, no acute distress HEENT: Reports: Pupils equal, Pupils reactive, EOMI Neck: Reports: supple, trachea midline Lungs: Reports: Normal respiratory effort Cardiovascular: Reports: Regular Rate, Regular Rhythm Abdomen: Reports: bowel sounds present, soft, no tenderness, no distension (Female) Exam: Deferred Rectal (Female) Exam: Deferred Back Exam: Reports: Normal Inspection Extremities: Reports: normal pulses Skin: Reports: warm Neurological: Reports: no new focal deficit, normal gait, normal speech Psy/Mental Status: Reports: alert, normal affect, normal mood *Q Meaningful Use (DIS) - VTE *Q VTE Criteria *Q: - Stroke *Q Stroke Criteria *Q: - AMI *Q AMI Criteria *Q:
== END 2017-04-10 12:07 | disposition home or self-care (01) ==
LOC: JD.ED 10:17 → JD.MS 15:39
PROVIDERS: ADMIT Internal Medicine Cardiovascular Disease; ATTEND Internal Medicine Cardiovascular Disease
DX: J20.9 Acute bronchitis, unspecified (principal); N39.0 Urinary tract infection, site not specified; E86.0 Dehydration; R11.2 Nausea with vomiting, unspecified; I10 Essential (primary) hypertension; E11.9 Type 2 diabetes mellitus without complications; R26.81 Unsteadiness on feet; E87.1 Hypo-osmolality and hyponatremia; D72.829 Elevated white blood cell count, unspecified; W19.XXXA Unspecified fall, initial encounter; Z90.49 Acquired absence of other specified parts of digestive tract; Z79.84 Long term (current) use of oral hypoglycemic drugs; Z79.899 Other long term (current) drug therapy
CPT/HCPCS: 36415; 70450; 71010; 71020; 80048; 80053; 81001; 82962; 83036; 83735; 83880; 84443; 84484; 85025; 86140; 86738; 87040; 87804; 93005; 96361; 96365; 96366; 96367; 96372; 96375; 96376; 97110; 97116; 97162; 97166; 97535; 99285; A9270; C9113; G0378; J0456; J0696; J1650; J1956; J2405; J7030; J7040; J7050; P9612; 99284; J3475

== ENCOUNTER 2018-02-21 13:00 | Emergency (ER) | payer MEDICARE, OTHER ==
[2018-02-21 13:20] VITALS: BP 129/50
--- NOTE | 2018-02-21 13:22 | EDM.PDOC ---
ED HPI GENERAL MEDICAL PROBLEM - General Chief Complaint: Gastrointestinal Problem Stated Complaint: [facility] Time Seen by Provider: 02/21/18 13:21 Source of Information: Reports: Patient - History of Present Illness INITIAL COMMENTS - FREE TEXT/NARRATIVE: Patient is brought here by ambulance from [place] where she has resided for the last 8 months. Primary complaint per [facility] nursing was weight loss and weakness. Patient states that she is having no pain whatsoever. She does feel that she has "no strength". She states that she has not been eating well that she has not had an appetite. Patient denies any shortness of breath or chest pain. She has no abdominal pain /vomiting/diarrhea. She had a normal bowel movement this morning. Denies any headache or dyspnea. Denies any confusion, though she reports that her memory is "not what it used to be". Chronic medical conditions of hyperlipidemia, diabetes and hypertension. Her PCP is Dr. Jalloh. Patient is a full code - Related Data Allergies Allergy/AdvReac Type Severity Reaction Status Date / Time No Known Allergies Allergy Verified 02/21/18 13:15 Home Meds: Home Meds Simvastatin [Zocor] 40 mg PO DAILY 04/08/17 [History] Magnesium Oxide 400 mg PO BID #30 tablet 04/10/17 [Rx] Acetaminophen [Tylenol] 325 mg PO Q8HR PRN 02/21/18 [History] Benazepril [Lotensin] 5 mg PO DAILY 02/21/18 [History] Megestrol [Megace 40 MG/ML Susp] 10 ml PO DAILY #600 ml 02/21/18 [Rx] metFORMIN HCl [Metformin HCl] 500 mg PO DAILY 02/21/18 [History] Past Medical History - Past Health History Medical/Surgical History: Denies Medical/Surgical History HEENT History: Reports: Hard of Hearing Cardiovascular History: Reports: Hypertension 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: Endocrine/Metabolic History: Reports: Diabetes, Type II - Past Surgical History HEENT Surgical History: Reports: None Cardiovascular Surgical History: Reports: None GI Surgical History: Reports: Appendectomy, Cholecystectomy Endocrine Surgical History: Reports: None Dermatological Surgical History: Reports: None Social & Family History - Family History Family Medical History: Noncontributory - Tobacco Use Smoking Status *Q: Never Smoker Second Hand Smoke Exposure: No - Caffeine Use Caffeine Use: Reports: Coffee Other Caffeine Use: 1 pot a day Caffeine Use Comment: daily - Recreational Drug Use Recreational Drug Use: No ED ROS GENERAL - Review of Systems Review Of Systems: See Below Constitutional: Reports: Malaise, Weakness, Fatigue, Decreased Appetite, Weight Loss (10lbs). Denies: Fever, Chills HEENT: Reports: No Symptoms Respiratory: Reports: Cough. Denies: Shortness of Breath, Wheezing, Pleuritic Chest Pain, Sputum Cardiovascular: Reports: Blood Pressure Problem (on medication for hypertension) . Denies: Chest Pain, Dyspnea on Exertion, Edema, Lightheadedness Endocrine: Reports: Fatigue GI/Abdominal: Denies: Abdominal Pain, Diarrhea, Nausea, Vomiting : Reports: No Symptoms Musculoskeletal: Reports: Other (weakness) Skin: Reports: No Symptoms Neurological: Reports: Other (memory loss) Psychiatric: Reports: No Symptoms ED EXAM, GENERAL - Physical Exam Exam: See Below Exam Limited By: No Limitations General Appearance: Alert, Cachetic Ears: Hearing Loss Throat/Mouth: Normal Inspection, Normal Oropharynx Head: Atraumatic, Normocephalic Neck: Normal Inspection, Supple, Non-Tender Respiratory/Chest: No Respiratory Distress, Lungs Clear, Normal Breath Sounds Cardiovascular: Normal Peripheral Pulses, Regular Rate, Rhythm, Systolic Murmur (III/ systolic murmur) GI/Abdominal: Normal Bowel Sounds, Soft, Non-Tender Extremities: Normal Inspection, Normal Capillary Refill. No: Pedal Edema Neurological: Alert, Oriented Psychiatric: Normal Affect, Normal Mood Skin Exam: Warm, Dry, Intact Lymphatic: No Adenopathy EKG INTERPRETATION EKG Date: 02/21/18 Time: 13:50 Rhythm: NSR Rate (Beats/Min): 88 Course - Vital Signs Last Recorded V/S: Last Vital Signs Temp 97.8 F 02/21/18 13:15 Pulse 94 02/21/18 13:15 Resp 30 H 02/21/18 13:15 BP 129/50 L 02/21/18 13:15 Pulse Ox 95 02/21/18 13:15 - Orders/Labs/Meds Orders: Active Orders 24 hr Category Date Time Status EKG 12 Lead [EKG Documentation Completion] [RC] STAT Care 02/21/18 13:33 Active Chest Abdomen Pelvis w Cont [CT] Stat Exams 02/21/18 15:58 Ordered UA W/MICROSCOPIC [URIN] Stat Lab 02/21/18 15:29 Ordered Sodium Chloride 0.9% [Normal Saline] 1,000 ml Med 02/21/18 15:26 Active IV ONETIME Medication Orders Sodium Chloride (Normal Saline) 1,000 mls @ 250 mls/hr IV ONETIME ONE Stop: 02/21/18 19:25 Last Admin: 02/21/18 15:32 Dose: 250 mls/hr Labs: Laboratory Tests 02/21/18 02/21/18 02/21/18 Range/Units 13:45 13:45 13:45 WBC 23.70 H (3.98-10.04) K/mm3 RBC 3.83 L (3.98-5.22) M/mm3 Hgb 11.3 (11.2-15.7) gm/L Hct 33.1 L (34.1-44.9) % MCV 86.4 (79.4-94.8) fl MCH 29.5 (25.6-32.2) pg MCHC 34.1 (32.2-35.5) g/dl RDW Std Deviation 42.3 (36.4-46.3) fL Plt Count 404 H (182-369) K/mm3 MPV 8.7 L (9.4-12.3) fl Neutrophils % (Manual) 91 H (40-60) % Band Neutrophils % 2 (0-10) % Lymphocytes % (Manual) 6 L (20-40) % Atypical Lymphs % 0 % Monocytes % (Manual) 1 L (2-10) % Eosinophils % (Manual) 0 L (0.7-5.8) % Basophils % (Manual) 0 L (0.1-1.2) Platelet Estimate Adequate RBC Morph Comment Normal Sodium 131 L (136-145) mEq/L Potassium 3.9 (3.5-5.1) mEq/L Chloride 92 L (98-107) mEq/L Carbon Dioxide 29 (21-32) mEq/L Anion Gap 13.9 (5-15) BUN 17 (7-18) mg/dL Creatinine 0.5 L (0.55-1.02) mg/dL Est Cr Clr Drug Dosing TNP Estimated GFR (MDRD) > 60 (>60) mL/min BUN/Creatinine Ratio 34.0 H (14-18) Glucose 132 H (83-115) mg/dL Calcium 8.6 (8.5-10.1) mg/dL Magnesium 1.8 (1.8-2.4) mg/dl Total Bilirubin 0.7 (0.2-1.0) mg/dL AST 16 (15-37) U/L ALT 15 (14-59) U/L Alkaline Phosphatase 53 (46-116) U/L Troponin I < 0.017 (0.00-0.056) ng/mL C-Reactive Protein (<1.0) mg/dL Total Protein 5.9 L (6.4-8.2) g/dl Albumin 2.5 L (3.4-5.0) g/dl Globulin 3.4 gm/dL Albumin/Globulin Ratio 0.7 L (1-2) TSH 3rd Generation 0.770 (0.358-3.74) uIU/mL Urine Color (Yellow) Urine Appearance (Clear) Urine pH (5.0-8.0) Ur Specific Glen (1.005-1.030) Urine Protein (Negative) Urine Glucose (UA) (Negative) Urine Ketones (Negative) Urine Occult Blood (Negative) Urine Nitrite (Negative) Urine Bilirubin (Negative) Urine Urobilinogen (0.2-1.0) Ur Leukocyte Esterase (Negative) Urine RBC (0-5) /hpf Urine WBC (0-5) /hpf Ur Epithelial Cells (0-5) /hpf Urine Bacteria (FEW) /hpf Urine Mucus (FEW) /hpf 02/21/18 02/21/18 Range/Units 14:55 15:29 WBC (3.98-10.04) K/mm3 RBC (3.98-5.22) M/mm3 Hgb (11.2-15.7) gm/L Hct (34.1-44.9) % MCV (79.4-94.8) fl MCH (25.6-32.2) pg MCHC (32.2-35.5) g/dl RDW Std Deviation (36.4-46.3) fL Plt Count (182-369) K/mm3 MPV (9.4-12.3) fl Neutrophils % (Manual) (40-60) % Band Neutrophils % (0-10) % Lymphocytes % (Manual) (20-40) % Atypical Lymphs % % Monocytes % (Manual) (2-10) % Eosinophils % (Manual) (0.7-5.8) % Basophils % (Manual) (0.1-1.2) Platelet Estimate RBC Morph Comment Sodium (136-145) mEq/L Potassium (3.5-5.1) mEq/L Chloride (98-107) mEq/L Carbon Dioxide (21-32) mEq/L Anion Gap (5-15) BUN (7-18) mg/dL Creatinine (0.55-1.02) mg/dL Est Cr Clr Drug Dosing Estimated GFR (MDRD) (>60) mL/min BUN/Creatinine Ratio (14-18) Glucose (83-115) mg/dL Calcium (8.5-10.1) mg/dL Magnesium (1.8-2.4) mg/dl Total Bilirubin (0.2-1.0) mg/dL AST (15-37) U/L ALT (14-59) U/L Alkaline Phosphatase (46-116) U/L Troponin I (0.00-0.056) ng/mL C-Reactive Protein 21.8 H* (<1.0) mg/dL Total Protein (6.4-8.2) g/dl Albumin (3.4-5.0) g/dl Globulin gm/dL Albumin/Globulin Ratio (1-2) TSH 3rd Generation (0.358-3.74) uIU/mL Urine Color Yellow (Yellow) Urine Appearance Clear (Clear) Urine pH 6.5 (5.0-8.0) Ur Specific Glen 1.020 (1.005-1.030) Urine Protein 1+ H (Negative) Urine Glucose (UA) Negative (Negative) Urine Ketones 2+ H (Negative) Urine Occult Blood Negative (Negative) Urine Nitrite Negative (Negative) Urine Bilirubin 1+ H (Negative) Urine Urobilinogen 0.2 (0.2-1.0) Ur Leukocyte Esterase Negative (Negative) Urine RBC Not seen (0-5) /hpf Urine WBC 0-5 (0-5) /hpf Ur Epithelial Cells 0-5 (0-5) /hpf Urine Bacteria Few (FEW) /hpf Urine Mucus Few (FEW) /hpf Meds: Medications Generic Name Dose Route Start Last Admin Trade Name Freq PRN Reason Stop Dose Admin Sodium Chloride 1,000 mls @ 250 mls/hr 02/21/18 15:26 02/21/18 15:32 Normal Saline IV 02/21/18 19:25 250 mls/hr ONETIME ONE Administration Discontinued Medications Generic Name Dose Route Start Last Admin Trade Name Murtaza PRN Reason Stop Dose Admin Diatrizoate Meglum/Diatrizoate Sod 90 ml 02/21/18 16:39 02/21/18 16:51 Gastrografin 37% PO 02/21/18 16:40 45 ml ONETIME ONE Administration Lactated Ringer's 1,000 mls @ 999 mls/hr 02/21/18 13:33 02/21/18 13:57 Ringers, Lactated IV 02/21/18 14:33 999 mls/hr .BOLUS ONE Administration Iopamidol 100 ml 02/21/18 16:39 02/21/18 16:52 Isovue-370 (76%) IVPUSH 02/21/18 16:40 86 ml ONETIME ONE Administration Sodium Chloride 10 ml 02/21/18 16:39 02/21/18 16:51 Saline Flush FLUSH 02/21/18 16:40 10 ml ONETIME ONE Administration - Radiology Interpretation Free Text/Narrative:: Chest x-ray demonstrates diffuse increased lung markings believed to represent fairly severe fibrosis. - Re-Assessments/Exams Free Text/Narrative Re-Assessment/Exam: Patient is cachectic in appearance. She is in no pain. Lungs sounds decreased at the bases but otherwise normal bilaterally. No abdominal tenderness. EKG demonstrates normal sinus rhythm with a rate of 88. Chest x-ray demonstrates diffuse increased lung markings suspected to be severe fibrosis. WBC elevated at 23,700 with 91% neutrophils and 2% bands. Sodium is decreased at 131. Anion gap 13.9. Total protein is decreased at 5.9 and albumin is 2.5. Urinalysis demonstrates protein and ketones. CT demonstrates moderate to severe interstitial lung disease most prominent in the lung bases. There is also an additional rounded focus in the superior segment of the left lower lobe. May need to consider biopsy of this. Patient also has mediastinal and paraesophageal adenopathy. Patient does have duodenitis and diverticulosis. History of fracture of T12 and L3. Lab work in combination with CT certainly suspicious for possible malignancy and patient will need further evaluation. She does have an appointment with her PCP on Saturday. As for her decreased appetite and significant weight loss, certainly this could be related to the above conditions. Will trial Megace for a week until she sees her PCP. Electrolyte abnormalities are likely due to her not eating, though this will need to be reassessed. 02/21/18 17:45 Departure - Departure Time of Disposition: 17:53 Disposition: Home, Self-Care 01 Condition: Fair Clinical Impression: Weight loss, unintentional, ILD (interstitial lung disease), Dehydration, Hyponatremia Leukocytosis Qualifiers: Leukocytosis type: unspecified Qualified Code(s): D72.829 - Elevated white blood cell count, unspecified - Discharge Information Prescriptions: Megestrol [Megace 40 MG/ML Susp] 10 ml PO DAILY #600 ml Instructions: Leukocytosis, Dehydration, Adult, [id number] Referrals: Pako Jalloh Jr, MD [Primary Care Provider] - Forms: ED Department Discharge Additional Instructions: Start Megace daily to increase your appetite. Follow-up with Dr Jalloh on Saturday as planned or return to ER if any worsening of symptoms. - My Orders Last 24 Hours: My Active Orders 02/21/18 13:33 EKG 12 Lead [EKG Documentation Completion] [RC] STAT 02/21/18 15:26 Sodium Chloride 0.9% [Normal Saline] 1,000 ml IV ONETIME 02/21/18 15:29 UA W/MICROSCOPIC [URIN] Stat 02/21/18 15:58 Chest Abdomen Pelvis w Cont [CT] Stat - Assessment/Plan Last 24 Hours: My Active Orders 02/21/18 13:33 EKG 12 Lead [EKG Documentation Completion] [RC] STAT 02/21/18 15:26 Sodium Chloride 0.9% [Normal Saline] 1,000 ml IV ONETIME 02/21/18 15:29 UA W/MICROSCOPIC [URIN] Stat 02/21/18 15:58 Chest Abdomen Pelvis w Cont [CT] Stat
[2018-02-21] MEDS ORDERED: Lactated Ringers 1,000 ML IV ONE (13:33)
--- NOTE | 2018-02-21 14:46 | CR ---
Chest: Two views of the chest were obtained. Comparison: Prior chest x-ray of 04/10/17. Lung markings are diffusely increased. Findings are felt to be fairly stable from prior study most likely representing diffuse fibrosis. Heart size at the upper limits of normal. Tortuous thoracic aorta is seen. Bony structures are osteopenic. Mild degenerative spurring is scattered within the spine with minimal scoliosis. No acute osseous abnormality is appreciated. Impression: 1. Diffuse increased lung markings believed to represent fairly severe fibrosis. 2. Other incidental findings. Diagnostic code #3
[2018-02-21] MEDS ORDERED: Sodium Chloride 0.9% 1,000 ML IV ONE (15:26)
[2018-02-21] MEDS ORDERED: Sodium Chloride 0.9% 10 ML Syringe FLUSH ONE (16:39)
[2018-02-21] MEDS ORDERED: Iopamidol 755 Mg/ML 100 ML Bottle IVPUSH ONE (16:39)
[2018-02-21] MEDS ORDERED: Diatrizoate Meglumine/Diatrizoate Sodium 37% 120 ML Bottle PO ONE (16:39)
--- NOTE | 2018-02-22 10:18 | CT ---
CT chest Technique: Multiple axial sections through the chest were obtained. Intravenous contrast was utilized. Comparison: Prior chest x-ray performed earlier on the same day (1:51 PM). No prior chest CT is available. Findings: Atherosclerotic change is noted within the thoracic aorta. No aneurysm is seen. Small mediastinal lymph nodes are seen which are felt to be within normal limits. Heart is slightly enlarged. Coronary artery calcification is seen. No axillary adenopathy is seen. Diffuse interstitial fibrosis is seen. More focal parenchymal density is seen within both posterior lung bases. Nodular density is noted within the approximate superior segment of the left lower lung measuring about 2.1 cm in size. No pleural effusions are seen. Bone window settings were reviewed showing scattered degenerative change within the spine. Impression: 1. Fairly severe interstitial fibrosis. 2. More focal areas of density within both posterior lung bases. Without previous study, uncertain if findings represent change from chronic aspiration, pneumonia or more focal areas of scarring. 3. Nodular density within the approximate superior segment of the left lower lung with similar differential, although difficult to exclude a neoplastic nodule. Note: Follow-up CT chest without contrast in 4 months would be helpful to determine stability. Diagnostic code #9 I agree with preliminary report issued by [facility] ([facility] preliminary report dictated on 02/21/18, 6:16 PM Central Time) CT abdomen and pelvis Technique: Multiple axial sections were obtained from above the dome of the diaphragm inferiorly through the pubic symphysis. Intravenous and oral contrast has been given. Comparison: No previous abdominal imaging. Delayed images were also obtained through the abdomen and pelvis. Findings: Mild intrahepatic biliary duct dilatation is seen. Distal common bile duct measures prominent at 8 mm. These findings are likely chronic and due to previous gallbladder surgery. No focal abnormality is identified within the liver. Questionable wall thickening within the duodenum is noted. Spleen appears within normal limits. Adrenal glands show no discrete nodule. Kidneys show symmetric contrast enhancement. Small cortical cyst is noted within the mid left kidney measuring 4 mm. No additional abnormality is seen within the kidneys. Delayed images shows contrast throughout the ureters into the bladder. Pancreas appears within normal limits. Aorta shows diffuse atherosclerotic calcification which continues into the iliac vessels. No aneurysm is seen. No retroperitoneal adenopathy is identified. No pelvic mass or adenopathy is seen. Small amount of air is identified within the bladder. Appendix is not definitely visualized. Bone window settings were reviewed which shows compression deformities of T12 and L3. Vacuum disc phenomena is noted within the L2-3 disc. Impression: 1. Compression deformities of T12 and L3. These are most likely old. 2. Questionable wall thickening within the duodenum. Difficult to exclude duodenitis or other process. Endoscopy would be needed to rule in or rule out. 3. Air within the bladder most likely from previous instrumentation. 4. Other incidental findings as noted above. Nothing acute is seen. Diagnostic code #3 Agree with preliminary report issued by [facility] ([facility] preliminary report dictated on 02/21/18, 6:16 PM Central Time)
== END 2018-02-21 18:05 | disposition home or self-care (01) ==
LOC: JD.ED 13:00
DX: J84.9 Interstitial pulmonary disease, unspecified (principal); D72.829 Elevated white blood cell count, unspecified; R63.4 Abnormal weight loss; E87.1 Hypo-osmolality and hyponatremia; E86.0 Dehydration; E11.9 Type 2 diabetes mellitus without complications; I10 Essential (primary) hypertension; Z79.899 Other long term (current) drug therapy
CPT/HCPCS: 36415; 71046; 71260; 74177; 80053; 81001; 83735; 84443; 84484; 85025; 86140; 93005; 96360; 96361; 99285; J7040; J7050; J7120; Q9963; Q9967; 99284

== ENCOUNTER 2018-02-23 08:25 | Inpatient (IN) | payer MEDICARE, OTHER ==
[2018-02-23] MEDS ORDERED: Ondansetron 4 MG/2 ML SDV IVPUSH ONE (08:32)
--- NOTE | 2018-02-23 08:36 | EDM.PDOC ---
ED HPI GENERAL MEDICAL PROBLEM - General Chief Complaint: Syncope Stated Complaint: [facility] Time Seen by Provider: 02/23/18 08:25 Source of Information: Reports: Patient, Long Term Records History Limitations: Reports: No Limitations - History of Present Illness INITIAL COMMENTS - FREE TEXT/NARRATIVE: 82-year-old female presents to the ED per ambulance from [facility]. Patient was aided to the toilet by staff and apparently while on the toilet had a syncopal event where she lost consciousness. She was caught by staff and therefore did not fall directly to the floor. She was unresponsive though for good minute and a half or more. When she was laid down to the floor her blood pressure came up and she regained consciousness and was able to speak normally but this took a good for 5 minutes. She's been eating very poorly and breath smells strongly of ketones. She was seen here Saturday i.e. 3 days ago and received IV fluids with an improvement in her status. I am not sure what investigations were completed at that time and will look at the old chart. Essentially she's failure to thrive with a known 10-12, weight loss over the last 2-3 weeks. She essentially cannot eat. Apparently he's not had diarrhea or vomiting. She responded to paramedics treatment with IV fluids of 150 mils normal saline and she was able to speak and move all limbs with no evidence of CVA. She is now alert and oriented and able to answer all questions. Patient is a type II diabetic. Blood sugar on scene was 152. Onset: Today Onset Date: 02/23/18 Onset Time: 07:40 Duration: Minutes: Location: Reports: Generalized (Syncopal event while seated on the toilet.) Quality: Reports: Other (Has no pain at this time) Severity: Severe Improves with: Reports: Other (IV fluid bolus.) Worsens with: Reports: Other (Standing.) Context: Denies: Activity, Exercise, Lifting, Sick Contact, Trauma, Other Associated Symptoms: Reports: Nausea/Vomiting. 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 (see below) (IV fluids 150 mils administered by paramedics.) - Related Data Allergies Allergy/AdvReac Type Severity Reaction Status Date / Time No Known Allergies Allergy Verified 02/23/18 08:36 Home Meds: Home Meds Simvastatin [Zocor] 40 mg PO DAILY 04/08/17 [History] Magnesium Oxide 400 mg PO BID #30 tablet 04/10/17 [Rx] Acetaminophen [Tylenol] 325 mg PO Q8HR PRN 02/21/18 [History] Benazepril [Lotensin] 5 mg PO DAILY 02/21/18 [History] Megestrol [Megace 40 MG/ML Susp] 10 ml PO DAILY #600 ml 02/21/18 [Rx] metFORMIN HCl [Metformin HCl] 500 mg PO DAILY 02/21/18 [History] Past Medical History - Past Health History Medical/Surgical History: Denies Medical/Surgical History HEENT History: Reports: Hard of Hearing Cardiovascular History: Reports: Hypertension 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: Endocrine/Metabolic History: Reports: Diabetes, Type II - Past Surgical History HEENT Surgical History: Reports: None Cardiovascular Surgical History: Reports: None GI Surgical History: Reports: Appendectomy, Cholecystectomy Endocrine Surgical History: Reports: None Dermatological Surgical History: Reports: None Social & Family History - Family History Family Medical History: Noncontributory - Tobacco Use Smoking Status *Q: Never Smoker Second Hand Smoke Exposure: No - Caffeine Use Caffeine Use: Reports: Coffee Other Caffeine Use: 1 pot a day Caffeine Use Comment: daily - Recreational Drug Use Recreational Drug Use: No - Living Situation & Occupation Living situation: Reports: Extended Care Facility (Currently residing at [place] [facility]) Occupation: Retired ED ROS GENERAL - Review of Systems Review Of Systems: See Below Constitutional: Reports: Malaise, Weakness, Fatigue, Decreased Appetite, Weight Loss (A good 10-12 point weight loss over the last 2 weeks simply because she cannot eat.). Denies: Fever, Chills HEENT: Reports: No Symptoms Respiratory: Reports: Shortness of Breath. Denies: Wheezing, Pleuritic Chest Pain, Cough Cardiovascular: Reports: Blood Pressure Problem (Running too low.), Dyspnea on Exertion Endocrine: Reports: Fatigue GI/Abdominal: Reports: Nausea. Denies: Vomiting : Reports: No Symptoms Musculoskeletal: Reports: Back Pain, Joint Pain (Knees and hips.) Skin: Reports: Bruising (Bruises easily.) Neurological: Reports: Dizziness, Difficulty Walking (Especially upon standing for several days) Psychiatric: Reports: No Symptoms ( cannot walk on her own volition has to have one or 2 person assist.) Hematologic/Lymphatic: Reports: No Symptoms Immunologic: Reports: No Symptoms - Physical Exam Exam: See Below Exam Limited By: No Limitations General Appearance: Alert (She is now alert and able to answer most questions.) , Anxious, Lethargic, Other (Breath smells strongly of ketones. Tongue is extremely dry.) Eye Exam: Bilateral Eye: Normal Inspection Throat/Mouth: Other (Tongue is extremely dry and coated and shrunken.) Head Exam: Atraumatic, Normocephalic Neck: Normal Inspection, Supple, Non-Tender, Full Range of Motion, Carotid Bruit (Referred murmur from aortic stenosis). No: Lymphadenopathy (L), Lymphadenopathy (R) Respiratory/Chest: Respiratory Distress (Mild tachypnea.), Rales (Few rales right base.). No: Normal Breath Sounds Cardiovascular: Regular Rate, Rhythm, No Edema, No Gallop, No Rub, Systolic Murmur (She has a pansystolic grade 3/6 murmur best heard at the left lateral sternal border compatible with aortic stenosis). No: Normal Peripheral Pulses GI/Abdominal: Normal Bowel Sounds, No Abnormal Bruit, No Mass, Other (Scaphoid abdomen. Skin has a doughy texture suggestive of hypernatremia.) Neuro Exam (Abbreviated): Alert, Oriented, CN II-XII Intact, Normal Cognition. No: Normal Gait DTR: 0: Achilles (R), Achilles (L), 1+: Bicep (R), Bicep (L), Patella (R), Patella (L) Back Exam: Other (Moderate kyphosis thoracic spine.) Extremities: Other (She has marked degenerative arthritic changes both knees with very limited range of motion externally internally rotation of either hip.) Psychiatric: Flat Affect Skin Exam: Warm, Dry, Normal Color, No Rash EKG INTERPRETATION EKG Date: 02/23/18 Time: 09:22 Rhythm: NSR Rate (Beats/Min): 87 [place]: LAD-Left [place] Deviation (Left axis deviation -14) P-Wave: Enlarged (Likely right atrial hypertrophy.) QRS: Other (Left ventricular hypertrophy pattern. Diffuse early repolarization pattern initial poor R-wave progression. Decreased voltage in the limb leads.) ST-T: Normal QT: Normal EKG Interpretation Comments: Abnormal ECG. Course - Vital Signs Last Recorded V/S: Last Vital Signs Temp 35.8 C 02/23/18 08:37 Pulse 91 02/23/18 08:37 Resp 32 H 02/23/18 08:37 BP 110/51 L 02/23/18 08:37 Pulse Ox 94 L 02/23/18 08:37 - Orders/Labs/Meds Orders: Active Orders 24 hr Category Date Time Status EKG Documentation Completion [RC] STAT Care 02/23/18 08:32 Active Chest 1V Frontal [CR] Stat Exams 02/23/18 08:32 Taken CULTURE BLOOD [BC] Stat Lab 02/23/18 08:33 Ordered CULTURE BLOOD [BC] Stat Lab 02/23/18 09:05 Received CULTURE URINE [RM] Stat Lab 02/23/18 09:55 Received URINALYSIS W/MICROSCOPIC [UA W/MICROSCOPIC] [URIN] Stat Lab 02/23/18 09:55 Ordered Sodium Chloride 0.9% [Normal Saline] 1,000 ml Med 02/23/18 08:45 Active IV ASDIRECTED cefTRIAXone [Rocephin] 2 gm Med 02/23/18 10:30 Active Sodium Chloride 0.9% [Normal Saline] 100 ml IV Q24H Blood Culture x2 Reflex Set [OM.PC] Stat Oth 02/23/18 08:33 Ordered Medication Orders Sodium Chloride (Normal Saline) 1,000 mls @ 250 mls/hr IV ASDIRECTED MINERVA Last Admin: 02/23/18 08:52 Dose: 250 mls/hr Ceftriaxone Sodium 2 gm/ (Sodium Chloride) 100 mls @ 100 mls/hr IV Q24H [facility] Last Admin: 02/23/18 10:34 Dose: 100 mls/hr Labs: Laboratory Tests 02/23/18 02/23/18 02/23/18 Range/Units 09:05 09:05 09:05 WBC 23.94 H (3.98-10.04) K/mm3 RBC 3.58 L (3.98-5.22) M/mm3 Hgb 10.4 L (11.2-15.7) gm/L Hct 31.8 L (34.1-44.9) % MCV 88.8 (79.4-94.8) fl MCH 29.1 (25.6-32.2) pg MCHC 32.7 (32.2-35.5) g/dl RDW Std Deviation 44.6 (36.4-46.3) fL Plt Count 545 H (182-369) K/mm3 MPV 8.5 L (9.4-12.3) fl Neutrophils % (Manual) 94 H (40-60) % Band Neutrophils % 1 (0-10) % Lymphocytes % (Manual) 1 L (20-40) % Atypical Lymphs % 0 % Monocytes % (Manual) 4 (2-10) % Eosinophils % (Manual) 0 L (0.7-5.8) % Basophils % (Manual) 0 L (0.1-1.2) Platelet Estimate Increased Plt Morphology Comment Normal Poikilocytosis 1+ slight Anisocytosis 2+ moderate RBC Morph Comment Not Reportable ESR (0-20) mm/hr PT 11.6 (9.5-12.1) SECONDS INR 1.07 Sodium 136 (136-145) mEq/L Potassium 3.7 (3.5-5.1) mEq/L Chloride 98 (98-107) mEq/L Carbon Dioxide 24 (21-32) mEq/L Anion Gap 17.7 H (5-15) BUN 20 H (7-18) mg/dL Creatinine 0.5 L (0.55-1.02) mg/dL Est Cr Clr Drug Dosing 48.84 mL/min Estimated GFR (MDRD) > 60 (>60) mL/min BUN/Creatinine Ratio 40.0 H (14-18) Glucose 137 H (83-115) mg/dL Serum Osmolality 284 (280-300) mosm/kg Lactic Acid (0.4-2.0) mmol/L Calcium 8.4 L (8.5-10.1) mg/dL Magnesium 1.7 L (1.8-2.4) mg/dl Total Bilirubin 0.6 (0.2-1.0) mg/dL AST 20 (15-37) U/L ALT 11 L (14-59) U/L Alkaline Phosphatase 58 (46-116) U/L CK-MB (CK-2) < 0.5 (0-3.6) ng/ml Troponin I 0.025 (0.00-0.056) ng/mL C-Reactive Protein 22.2 H* (<1.0) mg/dL NT-Pro-B Natriuret Pep (0-450) pg/mL Total Protein 5.0 L (6.4-8.2) g/dl Albumin 2.0 L (3.4-5.0) g/dl Globulin 3.0 gm/dL Albumin/Globulin Ratio 0.7 L (1-2) Lipase 80 (73-393) U/L Urine Color (Yellow) Urine Appearance (Clear) Urine pH (5.0-8.0) Ur Specific [place] (1.005-1.030) Urine Protein (Negative) Urine Glucose (UA) (Negative) Urine Ketones (Negative) Urine Occult Blood (Negative) Urine Nitrite (Negative) Urine Bilirubin (Negative) Urine Urobilinogen (0.2-1.0) Ur Leukocyte Esterase (Negative) Urine RBC (0-5) /hpf Urine WBC (0-5) /hpf Ur Epithelial Cells (0-5) /hpf Urine Bacteria (FEW) /hpf Urine Mucus (FEW) /hpf Ketones (0.0-0.3) mM 02/23/18 02/23/18 02/23/18 Range/Units 09:05 09:05 09:05 WBC (3.98-10.04) K/mm3 RBC (3.98-5.22) M/mm3 Hgb (11.2-15.7) gm/L Hct (34.1-44.9) % MCV (79.4-94.8) fl MCH (25.6-32.2) pg MCHC (32.2-35.5) g/dl RDW Std Deviation (36.4-46.3) fL Plt Count (182-369) K/mm3 MPV (9.4-12.3) fl Neutrophils % (Manual) (40-60) % Band Neutrophils % (0-10) % Lymphocytes % (Manual) (20-40) % Atypical Lymphs % % Monocytes % (Manual) (2-10) % Eosinophils % (Manual) (0.7-5.8) % Basophils % (Manual) (0.1-1.2) Platelet Estimate Plt Morphology Comment Poikilocytosis Anisocytosis RBC Morph Comment ESR 68 H (0-20) mm/hr PT (9.5-12.1) SECONDS INR Sodium (136-145) mEq/L Potassium (3.5-5.1) mEq/L Chloride (98-107) mEq/L Carbon Dioxide (21-32) mEq/L Anion Gap (5-15) BUN (7-18) mg/dL Creatinine (0.55-1.02) mg/dL Est Cr Clr Drug Dosing mL/min Estimated GFR (MDRD) (>60) mL/min BUN/Creatinine Ratio (14-18) Glucose (83-115) mg/dL Serum Osmolality (280-300) mosm/kg Lactic Acid (0.4-2.0) mmol/L Calcium (8.5-10.1) mg/dL Magnesium (1.8-2.4) mg/dl Total Bilirubin (0.2-1.0) mg/dL AST (15-37) U/L ALT (14-59) U/L Alkaline Phosphatase (46-116) U/L CK-MB (CK-2) (0-3.6) ng/ml Troponin I (0.00-0.056) ng/mL C-Reactive Protein (<1.0) mg/dL NT-Pro-B Natriuret Pep 1972 H (0-450) pg/mL Total Protein (6.4-8.2) g/dl Albumin (3.4-5.0) g/dl Globulin gm/dL Albumin/Globulin Ratio (1-2) Lipase (73-393) U/L Urine Color (Yellow) Urine Appearance (Clear) Urine pH (5.0-8.0) Ur Specific [place] (1.005-1.030) Urine Protein (Negative) Urine Glucose (UA) (Negative) Urine Ketones (Negative) Urine Occult Blood (Negative) Urine Nitrite (Negative) Urine Bilirubin (Negative) Urine Urobilinogen (0.2-1.0) Ur Leukocyte Esterase (Negative) Urine RBC (0-5) /hpf Urine WBC (0-5) /hpf Ur Epithelial Cells (0-5) /hpf Urine Bacteria (FEW) /hpf Urine Mucus (FEW) /hpf Ketones 5.09 (0.0-0.3) mM 02/23/18 02/23/18 Range/Units 09:05 09:55 WBC (3.98-10.04) K/mm3 RBC (3.98-5.22) M/mm3 Hgb (11.2-15.7) gm/L Hct (34.1-44.9) % MCV (79.4-94.8) fl MCH (25.6-32.2) pg MCHC (32.2-35.5) g/dl RDW Std Deviation (36.4-46.3) fL Plt Count (182-369) K/mm3 MPV (9.4-12.3) fl Neutrophils % (Manual) (40-60) % Band Neutrophils % (0-10) % Lymphocytes % (Manual) (20-40) % Atypical Lymphs % % Monocytes % (Manual) (2-10) % Eosinophils % (Manual) (0.7-5.8) % Basophils % (Manual) (0.1-1.2) Platelet Estimate Plt Morphology Comment Poikilocytosis Anisocytosis RBC Morph Comment ESR (0-20) mm/hr PT (9.5-12.1) SECONDS INR Sodium (136-145) mEq/L Potassium (3.5-5.1) mEq/L Chloride (98-107) mEq/L Carbon Dioxide (21-32) mEq/L Anion Gap (5-15) BUN (7-18) mg/dL Creatinine (0.55-1.02) mg/dL Est Cr Clr Drug Dosing mL/min Estimated GFR (MDRD) (>60) mL/min BUN/Creatinine Ratio (14-18) Glucose (83-115) mg/dL Serum Osmolality (280-300) mosm/kg Lactic Acid 1.5 (0.4-2.0) mmol/L Calcium (8.5-10.1) mg/dL Magnesium (1.8-2.4) mg/dl Total Bilirubin (0.2-1.0) mg/dL AST (15-37) U/L ALT (14-59) U/L Alkaline Phosphatase (46-116) U/L CK-MB (CK-2) (0-3.6) ng/ml Troponin I (0.00-0.056) ng/mL C-Reactive Protein (<1.0) mg/dL NT-Pro-B Natriuret Pep (0-450) pg/mL Total Protein (6.4-8.2) g/dl Albumin (3.4-5.0) g/dl Globulin gm/dL Albumin/Globulin Ratio (1-2) Lipase (73-393) U/L Urine Color Dark yellow (Yellow) Urine Appearance Slt cloudy H (Clear) Urine pH 6.5 (5.0-8.0) Ur Specific [place] 1.020 (1.005-1.030) Urine Protein 1+ H (Negative) Urine Glucose (UA) Negative (Negative) Urine Ketones 2+ H (Negative) Urine Occult Blood 2+ H (Negative) Urine Nitrite Negative (Negative) Urine Bilirubin 2+ H (Negative) Urine Urobilinogen 0.2 (0.2-1.0) Ur Leukocyte Esterase Negative (Negative) Urine RBC 20-30 H (0-5) /hpf Urine WBC 40-50 H (0-5) /hpf Ur Epithelial Cells 0-5 (0-5) /hpf Urine Bacteria Many H (FEW) /hpf Urine Mucus Not seen (FEW) /hpf Ketones (0.0-0.3) mM Meds: Medications Generic Name Dose Route Start Last Admin Trade Name Freq PRN Reason Stop Dose Admin Sodium Chloride 1,000 mls @ 250 mls/hr 02/23/18 08:45 02/23/18 08:52 Normal Saline IV 250 mls/hr ASDIRECTED MINERVA Administration Ceftriaxone Sodium 2 gm/ 100 mls @ 100 mls/hr 02/23/18 10:30 02/23/18 10:34 Sodium Chloride IV 100 mls/hr Q24H MINERVA Administration Discontinued Medications Generic Name Dose Route Start Last Admin Trade Name Freq PRN Reason Stop Dose Admin Ondansetron HCl 4 mg 02/23/18 08:32 02/23/18 08:53 Zofran IVPUSH 02/23/18 08:33 4 mg ONETIME ONE Administration - Radiology Interpretation Free Text/Narrative:: 82-year-old female presents to the ED from [place] [facility] where she collapsed while seated on the toilet. She suffered a syncopal episode where she was unresponsive for 2-3 minutes. She started to respond after she was laid on the floor and the effect of gravity was removed. Paramedics felt that she responded well to 150 mils normal saline bolus. Blood sugar and site was 152. It 's unclear whether she has had anything to eat or taken her medicines this morning. She was seen on Saturday 3 days ago in the ED with a similar problem. Apparently she simply is unable to eat presumably due to severe nausea. She's lost 10-12 pounds in the last 2 weeks and is less than experiencing adult failure to thrive. Clear for any CT of the abdomen was carried out to look for pancreatic mass etc. Plan labs ordered second spell ketones on her breath. IV for now will be normal saline at 250 mils per hour. One view chest x-ray ECG to be done. I will then be able to check old records to see what was done on last visit to the hospital. Given Zofran 4 mg IV for nausea relief. - Re-Assessments/Exams Free Text/Narrative Re-Assessment/Exam: 02/23/18 10:24 chest x-ray reveals severe diffuse pulmonary fibrosis affecting both lower lobes of the lung previously identified on CT examination. Is a 2.1 cm nodule left upper lung as well which may or may not represent a neoplastic process. Possible whether there could be pneumonia developing in the diffuse pulmonary fibrosis bilaterally although the patient has not exhibited any cough while in the ED. discussed CODE STATUS with her daughter and indicates that she is "level I. Wishes everything to be done if necessary. At this time she does appear to be septic likely from urinary tract infection although pneumonia is a secondary possibility. Will hang Rocephin 2 g IV now . Chemistry remains pending and therefore not able to adequately address her volume status although she appears to be some significantly volume depleted. Her BP is 116/45 with a heart rate of 81. 02/23/18 11:17 labs are now back.Labs are back revealing a markedly elevated white count at 23.94. This suggests underlying sepsis or less likely leukemia. The differential is 94% neutrophils and 1% band cells. Hemoglobin is 10.4 with hematocrit of 31.8. Platelet count is elevated at 545,000 i.e. essential thrombo -cytosis. Sedimentation rate is elevated at 68. PT is 11.6 with an INR of 1.07. Chemistry is pending. Urinalysis obtained by catheterization shows 1+ protein 2 + ketones 2+ local blood 2+ bilirubin 22-30 RBCs and 40-50 white blood cells per high-power field with many bacteria seen. Serum ketones are markedly elevated at 5.09. PT is 11.6 with an INR 1.07. Chemistry is now available. Sodium is 136 with a potassium of 3.7. Chloride is 98 with a bicarbonate of 24. And a gap is elevated at 17.7. BUNs 20 with a creatinine of 0.5. Glucose is 137. Serum osmolality is slightly low at 284. Lactic acid 1.5. Calcium 8.4 magnesium 1.7. Total bilirubin is 0.6 with AST of 28 ELT 11. Alk phosphatase normal at 58. CK-MB fraction is less than 0.5 and troponin is less than 0.025. C -reactive protein is markedly elevated at 22.2 compatible with underlying infective process. BNP is elevated at 1972. Lipase normal at 80. Patient appears to be suffering sepsis likely from urinary tract origin. I cannot rule out a pneumonia hiding behind the dense pulmonary fibrosis in both lower lobes although this is less likely considering CT done on Saturday. Patient will be admitted to the med surgery floor on telemetry. Case discussed with TASH chow in this regard. Departure - Departure Time of Disposition: 11:18 Disposition: Admitted As Inpatient 65 Condition: Serious Clinical Impression: Pulmonary fibrosis determined by high resolution computed tomography, Upper urinary tract infection, Sepsis due to urinary tract infection, Metabolic acidosis Congestive heart failure Qualifiers: Heart failure type: diastolic Heart failure chronicity: acute on chronic Qualified Code(s): I50.33 - Acute on chronic diastolic (congestive) heart failure - Discharge Information - My Orders Last 24 Hours: My Active Orders 02/23/18 08:32 EKG Documentation Completion [RC] STAT Chest 1V Frontal [CR] Stat 02/23/18 08:33 CULTURE BLOOD [BC] Stat Blood Culture x2 Reflex Set [OM.PC] Stat 02/23/18 08:45 Sodium Chloride 0.9% [Normal Saline] 1,000 ml IV ASDIRECTED 02/23/18 09:05 CULTURE BLOOD [BC] Stat 02/23/18 09:55 CULTURE URINE [RM] Stat URINALYSIS W/MICROSCOPIC [UA W/MICROSCOPIC] [URIN] Stat 02/23/18 10:30 cefTRIAXone [Rocephin] 2 gm Sodium Chloride 0.9% [Normal Saline] 100 ml IV Q24H - Assessment/Plan Last 24 Hours: My Active Orders 02/23/18 08:32 EKG Documentation Completion [RC] STAT Chest 1V Frontal [CR] Stat 02/23/18 08:33 CULTURE BLOOD [BC] Stat Blood Culture x2 Reflex Set [OM.PC] Stat 02/23/18 08:45 Sodium Chloride 0.9% [Normal Saline] 1,000 ml IV ASDIRECTED 02/23/18 09:05 CULTURE BLOOD [BC] Stat 02/23/18 09:55 CULTURE URINE [RM] Stat URINALYSIS W/MICROSCOPIC [UA W/MICROSCOPIC] [URIN] Stat 02/23/18 10:30 cefTRIAXone [Rocephin] 2 gm Sodium Chloride 0.9% [Normal Saline] 100 ml IV Q24H
[2018-02-23] MEDS: Sodium Chloride 0.9% 1,000 ML IV SCH ×3 (08:52→17:50)
[2018-02-23] MEDS ORDERED: cefTRIAXone 2 GM in Sodium Chloride 0.9% 100 ML IV SCH ×4 (10:30)
[2018-02-23] MEDS ORDERED: Ondansetron 4 MG/2 ML SDV IV PRN (12:23)
[2018-02-23] MEDS ORDERED: Ondansetron 4 MG Tab.DIS PO PRN (12:23)
[2018-02-23] MEDS ORDERED: Morphine 2 MG/ML Syringe IVPUSH PRN (12:23)
[2018-02-23] MEDS ORDERED: Polyethylene Glycol 3350 Powder 17 GM Packet PO PRN (12:23)
[2018-02-23] MEDS ORDERED: Acetaminophen/HYDROcodone 325-5 MG Tab PO PRN (12:23)
[2018-02-23] MEDS ORDERED: Bisacodyl 5 MG Tab PO PRN (12:23)
[2018-02-23] MEDS ORDERED: Acetaminophen 325 MG Tab PO PRN (12:23)
[2018-02-23] MEDS ORDERED: Albuterol/Ipratropium 3.0-0.5 MG/3 ML Neb Soln NEB PRN (12:23)
[2018-02-23] MEDS ORDERED: Docusate Sodium 100 MG Cap PO PRN (12:23)
[2018-02-23] MEDS ORDERED: Magnesium Sulfate/Water 2 GM in Premix Bag 1 BAG IV ONE (12:28)
[2018-02-23] MEDS ORDERED: Metoprolol Tartrate 5 MG/5 ML SDV IVPUSH PRN (12:30)
[2018-02-23] MEDS ORDERED: hydrALAZINE 20 MG/ML SDV IVPUSH PRN (12:30)
[2018-02-23] MEDS ORDERED: 50% Dextrose in Water 50 ML Syringe IVPUSH PRN (12:31)
--- NOTE | 2018-02-23 12:33 | PCM.HP ---
<Harjinder Locke - Last Filed: 02/23/18 14:14> H&P History of Present Illness - General Date of Service: 02/23/18 Admit Problem/Dx: Admission Diagnosis/Problem Admission Diagnosis/Problem Sepsis due to urinary tract infection Source of Information: Patient, Family, Old Records, Provider, RN, RN Notes Reviewed History Limitations: Reports: No Limitations - History of Present Illness Initial Comments - Free Text/Narative: Rosa Wright is a 82 yo female who presents to our ED today 02/23/18 via EMS after a syncopal episode while on the toilet. She reportedly lost consciousness but was caught by staff so she did not fall onto the floor. staff reports she was unconscious for at least a minute and half. She was transferred to the floor and laid supine. Her blood pressure improved and she regained consciousness. Staff reports this took at least 5 minutes. She's been eating very poorly, presumably due to severe nausea, and ED provider noticed ketones on her breath. She was seen this past Saturday, which is 3 days ago, and received IV fluids She reports a 10-12 pound weight loss over the past 2-3 weeks. Denies any diarrhea or vomiting. Paramedics did give her a fluid bolus of 150 mils which did show improvement. No signs of CVA. She is a type II diabetic and her blood sugar on scene was 152. Daughter reports she was seen recently at [facility] by her PCP for these symptoms, as well as in the ED as above. In the ED temp was 35.8 Celsius. Pulse 91. Respirations 32. Blood pressure 110/51. Pulse ox 94%. EKG is obtained which shows a sinus rhythm at 87 bpm. There is left axis deviation, enlarged P waves suggestive of right atrial hypertrophy, a left ventricular hypertrophy pattern, early repolarization pattern with initial poor R-wave progression. Decreased voltage is noted in the limb leads. There is no STsegment abnormality or QT prolongation. Labs are obtained: 30 mL elevated at 23.94. Hemoglobin low at 10.4. Hematocrit low at 31.8. She was normocytic. Platelets are high at 545,000. Neutrophils were elevated at 94%. Band neutrophils are noted at 1%. ESR 68. PT is 11.6. INR 1.07. Sodium 136. Potassium 3.7. Chloride 98. Carbon dioxide 24. Gap is high at 17.7. BUN is high at 20. Creatinine is low at 0.5. EGFR greater than 60. Glucose is slightly high at 137. Serum osmolality is 284. Lactic acid is 1.5. Calcium is 8.4. Magnesium low 1.7. Bilirubin was good at 0.6. AST is 20 , ALT 11, alkaline phosphatase 58. CK-MB less than 0.5. Troponin 0.025. CRP is quite high at 22.2. Albumin is low at 2.0. Lipase is 80. ProBNP is elevated at 1972. chest x-rays obtained and shows severe diffuse pulmonary fibrosis bilaterally which was identified on the CT examination. Is 1.2; nodule in the left upper lung as well. ED provider notes she may have a pneumonia however is difficult to tell with her pulmonary fibrosis. She has not had a cough and a CT scan was obtained on Saturday which did not show any pneumonia. She started on Rocephin 2 g and given IV fluids. She also given Zofran for nausea. She carries a history of: HTN, type II DM, HLD, hypomagnesemia. She was never a smoker. She does drink one pot of coffee daily. She currently resides in assisted living at [facility]. She is subsequently admitted to the Medical floor on telemetry. She is a full code. Her PCP is Dr. Jalloh at [facility]. - Related Data Allergies/Adverse Reactions: Allergies Allergy/AdvReac Type Severity Reaction Status Date / Time No Known Allergies Allergy Verified 02/23/18 12:57 Home Medications: Home Meds Simvastatin [Zocor] 40 mg PO DAILY 04/08/17 [History] Magnesium Oxide 400 mg PO BID #30 tablet 04/10/17 [Rx] Acetaminophen [Tylenol] 325 mg PO Q8HR PRN MDD 2 tablets 02/21/18 [History] Benazepril [Lotensin] 5 mg PO DAILY 02/21/18 [History] Megestrol [Megace 40 MG/ML Susp] 10 ml PO DAILY #600 ml 02/21/18 [Rx] metFORMIN HCl [Metformin HCl] 500 mg PO DAILY 02/21/18 [History] Calcium Carbonate 1,200 mg PO BID #60 tablet 03/03/18 [Rx] Levofloxacin [Levaquin] 250 mg PO Q24H #2 tablet 04/23/18 [Rx] Potassium Chloride/NaCl [Thermotabs] 2 each PO BID #10 tab 03/03/18 [Rx] Prednisone [IJD: predniSONE] 20 mg PO DAILY #3 tablet 03/03/18 [Rx] Saccharomyces Boulardii [Florastor] 250 mg PO BID #20 cap 03/03/18 [Rx] Sertraline [Zoloft] 25 mg PO DAILY #60 tablet 03/03/18 [Rx] predniSONE 10 mg PO DAILY #3 tablet 03/03/18 [Rx] Past Medical History - Past Health History Medical/Surgical History: Denies Medical/Surgical History HEENT History: Reports: Hard of Hearing Cardiovascular History: Reports: Hypertension NEONATAL CRITICAL CARE NURSE History: Reports: Endocrine/Metabolic History: Reports: Diabetes, Type II - Past Surgical History HEENT Surgical History: Reports: None Cardiovascular Surgical History: Reports: None GI Surgical History: Reports: Appendectomy, Cholecystectomy Endocrine Surgical History: Reports: None Dermatological Surgical History: Reports: None Social & Family History - Family History Family Medical History: Noncontributory - Tobacco Use Smoking Status *Q: Never Smoker Second Hand Smoke Exposure: No - Caffeine Use Caffeine Use: Reports: Coffee Other Caffeine Use: 1 pot a day Caffeine Use Comment: daily - Recreational Drug Use Recreational Drug Use: No - Living Situation & Occupation Living situation: Reports: Extended Care Facility (Currently residing at [facility]) Occupation: Retired H&P Review of Systems - Review of Systems: Review Of Systems: See Below General: Reports: Malaise, Weakness, Fatigue, Weight Loss. Denies: Fever, Chills, Night Sweats, Diaphoresis HEENT: Reports: No Symptoms. Denies: Headaches, Rhinitis, Sore Throat, Vertigo Pulmonary: Reports: Shortness of Breath. Denies: Wheezing, Cough, Sputum Cardiovascular: Reports: Dyspnea on Exertion, Lightheadedness, Syncope, Blood Pressure Problem (hypotension ). Denies: Chest Pain, Palpitations, Edema Gastrointestinal: Reports: Decreased Appetite, Nausea. Denies: Abdominal Pain, Constipation, Diarrhea, Vomiting Genitourinary: Reports: No Symptoms. Denies: Dysuria, Frequency, Burning, Pain , Urgency Musculoskeletal: Reports: Neck Pain, Joint Pain, Muscle Stiffness (generalized ) Skin: Reports: No Symptoms Psychiatric: Reports: No Symptoms Neurological: Reports: Syncope, Difficulty Walking, Weakness, Gait Disturbance. Denies: Confusion, Dizziness, Headache, Numbness, Seizure, Tremors, Trouble Speaking, Change in Speech Hematologic/Lymphatic: Reports: Easy Bruising. Denies: Easy Bleeding Immunologic: Reports: No Symptoms Exam - Exam Exam: See Below - Vital Signs Vital Signs: Last Vital Signs Temp 96.4 F 02/23/18 08:37 Pulse 91 02/23/18 08:37 Resp 32 H 02/23/18 08:37 BP 110/51 L 02/23/18 08:37 Pulse Ox 94 L 02/23/18 08:37 Weight: 36.287 kg - Exam Quality Assessment: Other (very thin and frail ) General: Alert, Oriented, Cooperative. No: Mild Distress HEENT: Conjunctiva Clear, EACs Clear, EOMI, Hearing Intact, Nares Patent, Posterior Pharynx Clear, PERRLA. No: Mucosa Moist & Divide (dry ) Neck: Supple, Trachea Midline. No: JVD Lungs: Rales (very mild in right base ). No: Rhonchi, Rub, Wheezing Cardiovascular: Regular Rate, Regular Rhythm, Systolic Murmur GI/Abdominal Exam: Normal Bowel Sounds, Soft, Non-Tender, No Organomegaly, No Distention, No Abnormal Bruit, No Mass, Pelvis Stable (Female) Exam: Deferred Rectal (Female) Exam: Deferred Back Exam: Full Range of Motion, Other (mild kyphosis) Extremities: Non-Tender, No Pedal Edema, Normal Capillary Refill, Limited Range of Motion - Patient Data Lab Results Last 24 hrs: Laboratory Results - last 24 hr 02/23/18 02/23/18 02/23/18 Range/Units 09:05 09:05 09:05 WBC 23.94 H (3.98-10.04) K/mm3 RBC 3.58 L (3.98-5.22) M/mm3 Hgb 10.4 L (11.2-15.7) gm/L Hct 31.8 L (34.1-44.9) % MCV 88.8 (79.4-94.8) fl MCH 29.1 (25.6-32.2) pg MCHC 32.7 (32.2-35.5) g/dl RDW Std Deviation 44.6 (36.4-46.3) fL Plt Count 545 H (182-369) K/mm3 MPV 8.5 L (9.4-12.3) fl Neutrophils % (Manual) 94 H (40-60) % Band Neutrophils % 1 (0-10) % Lymphocytes % (Manual) 1 L (20-40) % Atypical Lymphs % 0 % Monocytes % (Manual) 4 (2-10) % Eosinophils % (Manual) 0 L (0.7-5.8) % Basophils % (Manual) 0 L (0.1-1.2) Platelet Estimate Increased Plt Morphology Comment Normal Poikilocytosis 1+ slight Anisocytosis 2+ moderate RBC Morph Comment Not Reportable ESR (0-20) mm/hr PT 11.6 (9.5-12.1) SECONDS INR 1.07 Sodium 136 (136-145) mEq/L Potassium 3.7 (3.5-5.1) mEq/L Chloride 98 (98-107) mEq/L Carbon Dioxide 24 (21-32) mEq/L Anion Gap 17.7 H (5-15) BUN 20 H (7-18) mg/dL Creatinine 0.5 L (0.55-1.02) mg/dL Est Cr Clr Drug Dosing 48.84 mL/min Estimated GFR (MDRD) > 60 (>60) mL/min BUN/Creatinine Ratio 40.0 H (14-18) Glucose 137 H (83-115) mg/dL Serum Osmolality 284 (280-300) mosm/kg Lactic Acid (0.4-2.0) mmol/L Calcium 8.4 L (8.5-10.1) mg/dL Magnesium 1.7 L (1.8-2.4) mg/dl Total Bilirubin 0.6 (0.2-1.0) mg/dL AST 20 (15-37) U/L ALT 11 L (14-59) U/L Alkaline Phosphatase 58 (46-116) U/L CK-MB (CK-2) < 0.5 (0-3.6) ng/ml Troponin I 0.025 (0.00-0.056) ng/mL C-Reactive Protein 22.2 H* (<1.0) mg/dL NT-Pro-B Natriuret Pep (0-450) pg/mL Total Protein 5.0 L (6.4-8.2) g/dl Albumin 2.0 L (3.4-5.0) g/dl Globulin 3.0 gm/dL Albumin/Globulin Ratio 0.7 L (1-2) Lipase 80 (73-393) U/L Urine Color (Yellow) Urine Appearance (Clear) Urine pH (5.0-8.0) Ur Specific [place] (1.005-1.030) Urine Protein (Negative) Urine Glucose (UA) (Negative) Urine Ketones (Negative) Urine Occult Blood (Negative) Urine Nitrite (Negative) Urine Bilirubin (Negative) Urine Urobilinogen (0.2-1.0) Ur Leukocyte Esterase (Negative) Urine RBC (0-5) /hpf Urine WBC (0-5) /hpf Ur Epithelial Cells (0-5) /hpf Urine Bacteria (FEW) /hpf Urine Mucus (FEW) /hpf Ketones (0.0-0.3) mM 02/23/18 02/23/18 02/23/18 Range/Units 09:05 09:05 09:05 WBC (3.98-10.04) K/mm3 RBC (3.98-5.22) M/mm3 Hgb (11.2-15.7) gm/L Hct (34.1-44.9) % MCV (79.4-94.8) fl MCH (25.6-32.2) pg MCHC (32.2-35.5) g/dl RDW Std Deviation (36.4-46.3) fL Plt Count (182-369) K/mm3 MPV (9.4-12.3) fl Neutrophils % (Manual) (40-60) % Band Neutrophils % (0-10) % Lymphocytes % (Manual) (20-40) % Atypical Lymphs % % Monocytes % (Manual) (2-10) % Eosinophils % (Manual) (0.7-5.8) % Basophils % (Manual) (0.1-1.2) Platelet Estimate Plt Morphology Comment Poikilocytosis Anisocytosis RBC Morph Comment ESR 68 H (0-20) mm/hr PT (9.5-12.1) SECONDS INR Sodium (136-145) mEq/L Potassium (3.5-5.1) mEq/L Chloride (98-107) mEq/L Carbon Dioxide (21-32) mEq/L Anion Gap (5-15) BUN (7-18) mg/dL Creatinine (0.55-1.02) mg/dL Est Cr Clr Drug Dosing mL/min Estimated GFR (MDRD) (>60) mL/min BUN/Creatinine Ratio (14-18) Glucose (83-115) mg/dL Serum Osmolality (280-300) mosm/kg Lactic Acid (0.4-2.0) mmol/L Calcium (8.5-10.1) mg/dL Magnesium (1.8-2.4) mg/dl Total Bilirubin (0.2-1.0) mg/dL AST (15-37) U/L ALT (14-59) U/L Alkaline Phosphatase (46-116) U/L CK-MB (CK-2) (0-3.6) ng/ml Troponin I (0.00-0.056) ng/mL C-Reactive Protein (<1.0) mg/dL NT-Pro-B Natriuret Pep 1972 H (0-450) pg/mL Total Protein (6.4-8.2) g/dl Albumin (3.4-5.0) g/dl Globulin gm/dL Albumin/Globulin Ratio (1-2) Lipase (73-393) U/L Urine Color (Yellow) Urine Appearance (Clear) Urine pH (5.0-8.0) Ur Specific [place] (1.005-1.030) Urine Protein (Negative) Urine Glucose (UA) (Negative) Urine Ketones (Negative) Urine Occult Blood (Negative) Urine Nitrite (Negative) Urine Bilirubin (Negative) Urine Urobilinogen (0.2-1.0) Ur Leukocyte Esterase (Negative) Urine RBC (0-5) /hpf Urine WBC (0-5) /hpf Ur Epithelial Cells (0-5) /hpf Urine Bacteria (FEW) /hpf Urine Mucus (FEW) /hpf Ketones 5.09 (0.0-0.3) mM 02/23/18 02/23/18 Range/Units 09:05 09:55 WBC (3.98-10.04) K/mm3 RBC (3.98-5.22) M/mm3 Hgb (11.2-15.7) gm/L Hct (34.1-44.9) % MCV (79.4-94.8) fl MCH (25.6-32.2) pg MCHC (32.2-35.5) g/dl RDW Std Deviation (36.4-46.3) fL Plt Count (182-369) K/mm3 MPV (9.4-12.3) fl Neutrophils % (Manual) (40-60) % Band Neutrophils % (0-10) % Lymphocytes % (Manual) (20-40) % Atypical Lymphs % % Monocytes % (Manual) (2-10) % Eosinophils % (Manual) (0.7-5.8) % Basophils % (Manual) (0.1-1.2) Platelet Estimate Plt Morphology Comment Poikilocytosis Anisocytosis RBC Morph Comment ESR (0-20) mm/hr PT (9.5-12.1) SECONDS INR Sodium (136-145) mEq/L Potassium (3.5-5.1) mEq/L Chloride (98-107) mEq/L Carbon Dioxide (21-32) mEq/L Anion Gap (5-15) BUN (7-18) mg/dL Creatinine (0.55-1.02) mg/dL Est Cr Clr Drug Dosing mL/min Estimated GFR (MDRD) (>60) mL/min BUN/Creatinine Ratio (14-18) Glucose (83-115) mg/dL Serum Osmolality (280-300) mosm/kg Lactic Acid 1.5 (0.4-2.0) mmol/L Calcium (8.5-10.1) mg/dL Magnesium (1.8-2.4) mg/dl Total Bilirubin (0.2-1.0) mg/dL AST (15-37) U/L ALT (14-59) U/L Alkaline Phosphatase (46-116) U/L CK-MB (CK-2) (0-3.6) ng/ml Troponin I (0.00-0.056) ng/mL C-Reactive Protein (<1.0) mg/dL NT-Pro-B Natriuret Pep (0-450) pg/mL Total Protein (6.4-8.2) g/dl Albumin (3.4-5.0) g/dl Globulin gm/dL Albumin/Globulin Ratio (1-2) Lipase (73-393) U/L Urine Color Dark yellow (Yellow) Urine Appearance Slt cloudy H (Clear) Urine pH 6.5 (5.0-8.0) Ur Specific [place] 1.020 (1.005-1.030) Urine Protein 1+ H (Negative) Urine Glucose (UA) Negative (Negative) Urine Ketones 2+ H (Negative) Urine Occult Blood 2+ H (Negative) Urine Nitrite Negative (Negative) Urine Bilirubin 2+ H (Negative) Urine Urobilinogen 0.2 (0.2-1.0) Ur Leukocyte Esterase Negative (Negative) Urine RBC 20-30 H (0-5) /hpf Urine WBC 40-50 H (0-5) /hpf Ur Epithelial Cells 0-5 (0-5) /hpf Urine Bacteria Many H (FEW) /hpf Urine Mucus Not seen (FEW) /hpf Ketones (0.0-0.3) mM Result Diagrams: 02/23/18 09:05 02/23/18 09:05 - Problem List (2) Nausea SNOMED Code(s): 504151937 ICD Code: R11.0 - NAUSEA Status: Acute Priority: High (3) Congestive heart failure SNOMED Code(s): 46193675 ICD Code: I50.9 - HEART FAILURE, UNSPECIFIED Status: Acute Priority: High Qualifiers: Heart failure type: diastolic Heart failure chronicity: acute on chronic Qualified Code(s): I50.33 - Acute on chronic diastolic (congestive) heart failure (4) Metabolic acidosis SNOMED Code(s): 51733015 ICD Code: E87.2 - ACIDOSIS Status: Acute Priority: High (5) Pulmonary fibrosis determined by high resolution computed tomography SNOMED Code(s): 70812048, 163487878 ICD Code: J84.10 - PULMONARY FIBROSIS, UNSPECIFIED Status: Acute Priority : High (6) Upper urinary tract infection SNOMED Code(s): 754121219 ICD Code: N39.0 - URINARY TRACT INFECTION, SITE NOT SPECIFIED Status: Acute Priority: High (7) Dehydration SNOMED Code(s): 23704798 ICD Code: E86.0 - DEHYDRATION Status: Acute Priority: High (8) Leukocytosis SNOMED Code(s): 919464216, 471633303 ICD Code: D72.829 - ELEVATED WHITE BLOOD CELL COUNT, UNSPECIFIED Status: Acute Priority: High Qualifiers: Leukocytosis type: unspecified Qualified Code(s): D72.829 - Elevated white blood cell count, unspecified (9) Weight loss, unintentional SNOMED Code(s): 149944035 ICD Code: R63.4 - ABNORMAL WEIGHT LOSS Status: Acute Priority: High (10) Failure to thrive in adult SNOMED Code(s): 692264656 ICD Code: R62.7 - ADULT FAILURE TO THRIVE Status: Acute Priority: High (11) Weakness SNOMED Code(s): 00843655 ICD Code: R53.1 - WEAKNESS Status: Acute Priority: High Problem List Initiated/Reviewed/Updated: Yes Orders Last 24hrs: Active Orders 24 hr Category Date Time Status Admission Status [Patient Status] [ADT] Routine ADT 02/23/18 12:04 Active Cardiac Monitoring [RC] CONTINUOUS Care 02/23/18 12:24 Ordered EKG Documentation Completion [RC] STAT Care 02/23/18 08:32 Active Height and Weight [RC] DAILY Care 02/23/18 12:23 Ordered Intake and Output [RC] QSHIFT Care 02/23/18 12:24 Ordered Oxygen Therapy [RC] PRN Care 02/23/18 12:23 Ordered Pulse Oximetry [RC] PRN Care 02/23/18 12:24 Ordered RT Aerosol Therapy [RC] ASDIRECTED Care 02/23/18 12:25 Ordered Up With Assistance [RC] ASDIRECTED Care 02/23/18 12:23 Ordered VTE/DVT Education [RC] PER UNIT ROUTINE Care 02/23/18 12:23 Ordered Vital Signs [RC] Q4H Care 02/23/18 12:23 Ordered Consult to Case Management [CONS] Routine Cons 02/23/18 12:23 Ordered Consult to Director Case Management [CONS] Routine Cons 02/23/18 12:23 Ordered Consult to Social Media Developer [CONS] Routine Cons 02/23/18 12:23 Ordered OT Evaluation and Treatment [CONS] Routine Cons 02/23/18 12:23 Ordered PT Evaluation and Treatment [CONS] Routine Cons 02/23/18 12:23 Ordered Chest 1V Frontal [CR] Stat Exams 02/23/18 08:32 Taken BASIC METABOLIC PANEL,BMP [CHEM] AM Lab 02/24/18 05:11 Ordered BASIC METABOLIC PANEL,BMP [CHEM] AM Lab 02/25/18 05:11 Ordered BASIC METABOLIC PANEL,BMP [CHEM] AM Lab 02/26/18 05:11 Ordered BASIC METABOLIC PANEL,BMP [CHEM] AM Lab 02/27/18 05:11 Ordered CBC WITH AUTO DIFF [HEME] AM Lab 02/24/18 05:11 Ordered CBC WITH AUTO DIFF [HEME] AM Lab 02/25/18 05:11 Ordered CBC WITH AUTO DIFF [HEME] AM Lab 02/26/18 05:11 Ordered CBC WITH AUTO DIFF [HEME] AM Lab 02/27/18 05:11 Ordered CRP [C-REACTIVE PROTEIN] [CHEM] AM Lab 02/24/18 05:11 Ordered CRP [C-REACTIVE PROTEIN] [CHEM] AM Lab 02/25/18 05:11 Ordered CRP [C-REACTIVE PROTEIN] [CHEM] AM Lab 02/26/18 05:11 Ordered CRP [C-REACTIVE PROTEIN] [CHEM] AM Lab 02/27/18 05:11 Ordered CULTURE BLOOD [BC] Stat Lab 02/23/18 08:33 Ordered CULTURE BLOOD [BC] Stat Lab 02/23/18 09:05 Received CULTURE URINE [RM] Stat Lab 02/23/18 09:55 Received MAGNESIUM [CHEM] AM Lab 02/24/18 05:11 Ordered MAGNESIUM [CHEM] AM Lab 02/25/18 05:11 Ordered MAGNESIUM [CHEM] AM Lab 02/26/18 05:11 Ordered MAGNESIUM [CHEM] AM Lab 02/27/18 05:11 Ordered PRO B-TYPE NATRIUR PEPT,BNPPRO [CHEM] Routine Lab 02/24/18 05:11 Ordered URINALYSIS W/MICROSCOPIC [UA W/MICROSCOPIC] [URIN] Stat Lab 02/23/18 09:55 Ordered Acetaminophen [Tylenol] Med 02/23/18 12:23 Ordered 650 mg PO Q4H PRN Acetaminophen/HYDROcodone [[place] 325-5 MG] Med 02/23/18 12:23 Ordered 1 tab PO Q4H PRN Albuterol/Ipratropium [DuoNeb 3.0-0.5 MG/3 ML] Med 02/23/18 12:23 Ordered 3 ml NEB Q4H PRN Bisacodyl [Dulcolax] Med 02/23/18 12:23 Ordered 5 mg PO DAILY PRN Docusate Sodium [Colace] Med 02/23/18 12:23 Ordered 100 mg PO BID PRN Docusate Sodium/Sennosides [Senna Plus] Med 02/23/18 12:23 Ordered 1 tab PO BID PRN Enoxaparin [Lovenox] Med 02/24/18 09:00 Ordered 30 mg SUBCUT DAILY Magnesium Sulfate/Water [Magnesium Sulfate 2 GM in Med 02/23/18 12:28 Ordered Water 50 ML] 2 gm Premix Bag 1 bag IV ONETIME Metoprolol Tartrate [Lopressor] Med 02/23/18 12:30 Ordered 5 mg IVPUSH Q4H PRN Morphine Med 02/23/18 12:23 Ordered 0.5 mg IVPUSH Q2H PRN Ondansetron [Zofran ODT] Med 02/23/18 12:23 Ordered 4 mg PO Q6H PRN Ondansetron [Zofran] Med 02/23/18 12:23 Ordered 4 mg IV Q6H PRN Polyethylene Glycol 3350 [MiraLAX] Med 02/23/18 12:23 Ordered 17 gm PO DAILY PRN Sodium Chloride 0.9% [Normal Saline] 1,000 ml Med 02/23/18 08:45 Active IV ASDIRECTED cefTRIAXone [Rocephin] 2 gm Med 02/23/18 10:30 Active Sodium Chloride 0.9% [Normal Saline] 100 ml IV Q24H hydrALAZINE [Apresoline] Med 02/23/18 12:30 Ordered 10 mg IVPUSH Q6H PRN Blood Culture x2 Reflex Set [OM.PC] Stat Oth 02/23/18 08:33 Ordered Resuscitation Status Routine Resus Stat 02/23/18 12:23 Ordered Medication Orders Acetaminophen (Tylenol) 650 mg PO Q4H PRN PRN Reason: Pain (Mild 1-3)/fever Hydrocodone Bitart/Acetaminophen ([place] 325-5 Mg) 1 tab PO Q4H PRN PRN Reason: Pain (moderate 4-6) Albuterol/Ipratropium (Duoneb 3.0-0.5 Mg/3 Ml) 3 ml NEB Q4H PRN PRN Reason: Shortness Of Breath/wheezing Bisacodyl (Dulcolax) 5 mg PO DAILY PRN PRN Reason: Constipation Docusate Sodium (Colace) 100 mg PO BID PRN PRN Reason: Constipation Enoxaparin Sodium (Lovenox) 30 mg SUBCUT DAILY [place]ERVA Hydralazine HCl (Apresoline) 10 mg IVPUSH Q6H PRN PRN Reason: Hypertension Sodium Chloride (Normal Saline) 1,000 mls @ 250 mls/hr IV ASDIRECTED [facility] Last Admin: 02/23/18 08:52 Dose: 250 mls/hr Ceftriaxone Sodium 2 gm/ (Sodium Chloride) 100 mls @ 100 mls/hr IV Q24H [facility] Last Admin: 02/23/18 10:34 Dose: 100 mls/hr Magnesium Sulfate 2 gm/ Premix 50 mls @ 25 mls/hr IV ONETIME ONE Stop: 02/23/18 14:27 Morphine Sulfate (Morphine) 0.5 mg IVPUSH Q2H PRN PRN Reason: Pain (severe 7-10) Stop: 02/24/18 12:25 Ondansetron HCl (Zofran Odt) 4 mg PO Q6H PRN PRN Reason: nausea, able to take PO Ondansetron HCl (Zofran) 4 mg IV Q6H PRN PRN Reason: Nausea/Vomiting Polyethylene Glycol (Miralax) 17 gm PO DAILY PRN PRN Reason: Constipation Senna/Docusate Sodium (Senna Plus) 1 tab PO BID PRN PRN Reason: Constipation Assessment/Plan Comment:: I/P: Acute; UTI -Reports weakness, weight loss, malaise, but no urinary symptoms, no CVA tenderness, no fever -UA unimpressive with no leukocyte esterase or nitrite, 40-50 WBC, 20-30 RBC , but many bacteria -Culture pending -WBC 23.94, CRP 22.2 -IV fluids as ordered -Rocephin 2gm Q24HR -Blood cultures pending -Lactic acid 1.5 Failure to thrive -Assisted living resident -Has reportedly needed 2 person assistance for last several days -10-12 lb weight loss -Poor oral intake, weakness -PT/OT -SW consult -Hospitalized last year for falls/Bronchitis -Old records indicate chronic unsteady gait Pulmonary fibrosis -Difficult to exclude underlying pneumonia -Noted on CT scan (12/24/17) -1. Fairly severe interstital fibrosis -2. more focal area of density within both posterior lung bases. Without previous study, uncertain if findings represent change from chronic aspiration, pneumonia, or more focal areas of scarring. -3. Nodular density (2.1 cm) within approximate superior segment of the left lower lung with similar differential, although difficult to exclude a neoplastic nodule. -Recommend follow-up CT without contrast in 4 months -Continue to monitor Heart failure -No edema, CXR shows no pulmonary congestion pending formal radiologist read , no SOB -BNP 1972 -No prior echo on file -Echo ordered for Saturday AM -12-lead suggests right atrial and left ventricular hypertrophy -3/6 pansystolic murmur suggesting aortic stenosis Leukocytosis -mycoplasma pneumonia, strep pneumonia, influenza pending -CRP 22.5 -UA unimpressive as above, Culture pending -Difficult to exclude pneumonia on CT/Chest x-ray -Antibiotics as ordered -Blood cultures pending Chronic: HTN Type II DM - SS insulin, QID glucose checks Hypomagnesemia HLD Plan: Admit to medical floor on telemetry Other orders as indicated above Routine AM labs PT/OT CM/SW for discharge planning Home medications as ordered Code Status: Full code; PCP: Dr. Jalloh at [facility]. <Mahamed Trent - Last Filed: 03/06/18 07:09> H&P History of Present Illness - General Admit Problem/Dx: Admission Diagnosis/Problem Admission Diagnosis/Problem Sepsis due to urinary tract infection Exam - Vital Signs Vital Signs: Last Vital Signs Temp 36.9 C 03/03/18 07:49 Pulse 77 03/03/18 07:49 Resp 22 H 03/03/18 07:49 BP 113/68 03/03/18 08:24 Pulse Ox 95 03/03/18 07:49 - Patient Data Result Diagrams: 03/03/18 05:22 03/03/18 05:22 Uli Results Last 24 hrs: Microbiology 02/26/18 05:28 Aerobic Blood Culture - Final Blood - Venous - Lab Draw NO GROWTH AFTER 7 DAYS Anaerobic Blood Culture - Final NO GROWTH AFTER 7 DAYS 02/26/18 05:20 Aerobic Blood Culture - Final Blood - Venous NO GROWTH AFTER 7 DAYS Anaerobic Blood Culture - Final NO GROWTH AFTER 7 DAYS
--- NOTE | 2018-02-23 14:55 | CR ---
Chest: Portable view of the chest was obtained. Comparison: Prior chest x-ray of 02/21/18. Heart size at the upper limits of normal. Tortuous thoracic aorta is seen. Diffuse interstitial changes are seen which appear to be fairly stable. Bony structures are osteopenic. Impression: 1. Diffuse pulmonary fibrosis. No significant change is seen from prior chest x-ray. Diagnostic code #3
[2018-02-23] MEDS: Insulin Aspart 100 Units/ML 3 ML Pen SUBCUT SCH ×2 (18:14→22:21)
[2018-02-23] MEDS ORDERED: Furosemide 20 MG/2 ML VIAL IVPUSH ONE (19:04)
[2018-02-23] MEDS ORDERED: Dextrose 5%-0.9% NaCl 1,000 ML IV SCH ×2 (19:15→22:15)
[2018-02-23] MEDS: Magnesium Oxide 400 MG Tab PO SCH (22:01)
[2018-02-24] MEDS: Insulin Aspart 100 Units/ML 3 ML Pen SUBCUT SCH ×4 (08:35→21:28)
[2018-02-24] MEDS: Simvastatin 40 MG Tab PO SCH (08:36)
[2018-02-24] MEDS: Megestrol Susp 40 MG/ML 10 ML UD Cup PO SCH (08:36)
[2018-02-24] MEDS: Magnesium Oxide 400 MG Tab PO SCH ×2 (08:36→21:28)
[2018-02-24] MEDS: Enoxaparin 30 MG/0.3 ML Syringe SUBCUT SCH (08:36)
[2018-02-24] MEDS ORDERED: Benazepril 10 MG Tab PO SCH (09:00)
[2018-02-24] MEDS ORDERED: Potassium Chloride 20 MEQ Tab.ER PO ONE (09:31)
[2018-02-24] MEDS ORDERED: Magnesium Sulfate/Water 2 GM in Premix Bag 1 BAG IV ONE ×2 (09:36→11:00)
[2018-02-24] MEDS ORDERED: Furosemide 20 MG/2 ML VIAL IVPUSH ONE (09:37)
[2018-02-24] MEDS ORDERED: Potassium Chloride 10 MEQ in Premix Bag 1 BAG IV SCH (09:45)
[2018-02-24] MEDS: cefTRIAXone 2 GM in Sodium Chloride 0.9% 100 ML IV SCH (09:51)
[2018-02-24] MEDS: Calcium Carbonate 600 MG Tab PO SCH ×2 (09:51→21:28)
[2018-02-24] MEDS ORDERED: cefTRIAXone 2 GM in Sodium Chloride 0.9% 100 ML IV SCH (10:30)
[2018-02-24] MEDS: methylPREDNISolone Sodium Succinate 40 MG/1 ML SDV IVPUSH SCH ×2 (11:12→22:51)
--- NOTE | 2018-02-24 11:55 | CR ---
Chest: Two views of the chest were obtained. Comparison: Prior chest x-ray of 02/23/18. Heart size and mediastinum are stable. Diffuse interstitial change is noted which appears stable. Bony structures are also unchanged. Impression: 1. Stable chest x-ray. Diagnostic code #3
--- NOTE | 2018-02-24 12:53 | PCM.PN ---
- General Info Date of Service: 02/24/18 Admission Dx/Problem (Free Text): Admission Diagnosis/Problem Admission Diagnosis/Problem Sepsis due to urinary tract infection Subjective Update: In to see Rosa. She is resting in bed. She had a very busy morning with CXR, echo, PT/OT. Family is in the room and reports the patient wet cough has been chronic for many years and is due to a medication side-effect from before. They were unable to list the medication. She has no complaints. Her urine and blood cultures are back and are positive. Doxycycline has been added for more coverage. Nursing reports 1 assist for getting up to bathroom. CXR shows no acute changes. No edema noted. Added acapella for wet cough. Functional Status: Reports: Pain Controlled, Tolerating Diet, Ambulating, Urinating, Incentive Spirometry. Denies: New Symptoms - Review of Systems General: Reports: Weakness, Fatigue, Malaise. Denies: Fever, Chills HEENT: Denies: Eye Pain, Sinus Congestion, Sore Throat, Visual Changes Pulmonary: Reports: Cough, Sputum, Wheezing. Denies: Shortness of Breath, Pleuritic Chest Pain Cardiovascular: Reports: No Symptoms. Denies: Chest Pain, Palpitations, Dyspnea on Exertion, Edema Gastrointestinal: Denies: Abdominal Pain, Constipation, Diarrhea, Melena, Nausea , Vomiting Genitourinary: Reports: No Symptoms Musculoskeletal: Reports: Joint Pain Skin: Reports: No Symptoms Neurological: Reports: No Symptoms Psychiatric: Reports: No Symptoms - Patient Data Vitals - Most Recent: Last Vital Signs Temp 97.7 F 02/24/18 12:09 Pulse 82 02/24/18 12:09 Resp 20 02/24/18 12:09 BP 101/43 L 02/24/18 12:09 Pulse Ox 91 L 02/24/18 12:24 Weight - Most Recent: 98 lb 14.4 oz I&O - Last 24 Hours: Intake & Output 02/23/18 02/24/18 02/24/18 22:59 06:59 14:59 Intake Total 410 842 90 Output Total 200 700 Balance 210 142 90 Lab Results Last 24 Hours: Laboratory Results - last 24 hr 02/23/18 02/23/18 02/23/18 Range/Units 09:45 13:05 17:08 WBC (3.98-10.04) K/mm3 RBC (3.98-5.22) M/mm3 Hgb (11.2-15.7) gm/L Hct (34.1-44.9) % MCV (79.4-94.8) fl MCH (25.6-32.2) pg MCHC (32.2-35.5) g/dl RDW Std Deviation (36.4-46.3) fL Plt Count (182-369) K/mm3 MPV (9.4-12.3) fl Neut % (Auto) (34.0-71.1) % Lymph % (Auto) (19.3-51.7) % [place] % (Auto) (4.7-12.5) % Eos % (Auto) (0.7-5.8) Baso % (Auto) (0.1-1.2) % Neut # (Auto) (1.56-6.13) K/mm3 Lymph # (Auto) (1.18-3.74) K/mm3 [place] # (Auto) (0.24-0.36) K/mm3 Eos # (Auto) (0.04-0.36) K/mm3 Baso # (Auto) (0.01-0.08) K/mm3 Manual Slide Review Sodium (136-145) mEq/L Potassium (3.5-5.1) mEq/L Chloride (98-107) mEq/L Carbon Dioxide (21-32) mEq/L Anion Gap (5-15) BUN (7-18) mg/dL Creatinine (0.55-1.02) mg/dL Est Cr Clr Drug Dosing mL/min Estimated GFR (MDRD) (>60) mL/min BUN/Creatinine Ratio (14-18) Glucose (83-115) mg/dL POC Glucose 121 H (83-110) mg/dL Lactic Acid (0.4-2.0) mmol/L Calcium (8.5-10.1) mg/dL Magnesium (1.8-2.4) mg/dl C-Reactive Protein (<1.0) mg/dL NT-Pro-B Natriuret Pep (0-450) pg/mL Mycoplasma pneumon IgM Negative (NEGATIVE) MRSA (PCR) Negative 02/23/18 02/24/18 02/24/18 Range/Units 22:01 06:04 06:04 WBC 17.47 H (3.98-10.04) K/mm3 RBC 3.58 L (3.98-5.22) M/mm3 Hgb 10.3 L (11.2-15.7) gm/L Hct 31.5 L (34.1-44.9) % MCV 88.0 (79.4-94.8) fl MCH 28.8 (25.6-32.2) pg MCHC 32.7 (32.2-35.5) g/dl RDW Std Deviation 45.1 (36.4-46.3) fL Plt Count 517 H (182-369) K/mm3 MPV 8.3 L (9.4-12.3) fl Neut % (Auto) 90.9 H (34.0-71.1) % Lymph % (Auto) 2.1 L (19.3-51.7) % [place] % (Auto) 6.5 (4.7-12.5) % Eos % (Auto) 0 L (0.7-5.8) Baso % (Auto) 0.1 (0.1-1.2) % Neut # (Auto) 15.89 H (1.56-6.13) K/mm3 Lymph # (Auto) 0.37 L (1.18-3.74) K/mm3 [place] # (Auto) 1.13 H (0.24-0.36) K/mm3 Eos # (Auto) 0.00 L (0.04-0.36) K/mm3 Baso # (Auto) 0.01 (0.01-0.08) K/mm3 Manual Slide Review Abnormal smear Sodium 136 (136-145) mEq/L Potassium 3.0 L (3.5-5.1) mEq/L Chloride 101 (98-107) mEq/L Carbon Dioxide 26 (21-32) mEq/L Anion Gap 12.0 (5-15) BUN 11 (7-18) mg/dL Creatinine 0.4 L (0.55-1.02) mg/dL Est Cr Clr Drug Dosing 75.47 mL/min Estimated GFR (MDRD) > 60 (>60) mL/min BUN/Creatinine Ratio 27.5 H (14-18) Glucose 177 H (83-115) mg/dL POC Glucose 158 H (83-110) mg/dL Lactic Acid (0.4-2.0) mmol/L Calcium 8.1 L (8.5-10.1) mg/dL Magnesium 1.7 L (1.8-2.4) mg/dl C-Reactive Protein 20.9 H* (<1.0) mg/dL NT-Pro-B Natriuret Pep (0-450) pg/mL Mycoplasma pneumon IgM (NEGATIVE) MRSA (PCR) 02/24/18 02/24/18 02/24/18 Range/Units 06:04 06:04 06:32 WBC (3.98-10.04) K/mm3 RBC (3.98-5.22) M/mm3 Hgb (11.2-15.7) gm/L Hct (34.1-44.9) % MCV (79.4-94.8) fl MCH (25.6-32.2) pg MCHC (32.2-35.5) g/dl RDW Std Deviation (36.4-46.3) fL Plt Count (182-369) K/mm3 MPV (9.4-12.3) fl Neut % (Auto) (34.0-71.1) % Lymph % (Auto) (19.3-51.7) % [place] % (Auto) (4.7-12.5) % Eos % (Auto) (0.7-5.8) Baso % (Auto) (0.1-1.2) % Neut # (Auto) (1.56-6.13) K/mm3 Lymph # (Auto) (1.18-3.74) K/mm3 [place] # (Auto) (0.24-0.36) K/mm3 Eos # (Auto) (0.04-0.36) K/mm3 Baso # (Auto) (0.01-0.08) K/mm3 Manual Slide Review Sodium (136-145) mEq/L Potassium (3.5-5.1) mEq/L Chloride (98-107) mEq/L Carbon Dioxide (21-32) mEq/L Anion Gap (5-15) BUN (7-18) mg/dL Creatinine (0.55-1.02) mg/dL Est Cr Clr Drug Dosing mL/min Estimated GFR (MDRD) (>60) mL/min BUN/Creatinine Ratio (14-18) Glucose (83-115) mg/dL POC Glucose 175 H (83-110) mg/dL Lactic Acid 0.9 (0.4-2.0) mmol/L Calcium (8.5-10.1) mg/dL Magnesium (1.8-2.4) mg/dl C-Reactive Protein (<1.0) mg/dL NT-Pro-B Natriuret Pep 5357 H (0-450) pg/mL Mycoplasma pneumon IgM (NEGATIVE) MRSA (PCR) 02/24/18 Range/Units 11:12 WBC (3.98-10.04) K/mm3 RBC (3.98-5.22) M/mm3 Hgb (11.2-15.7) gm/L Hct (34.1-44.9) % MCV (79.4-94.8) fl MCH (25.6-32.2) pg MCHC (32.2-35.5) g/dl RDW Std Deviation (36.4-46.3) fL Plt Count (182-369) K/mm3 MPV (9.4-12.3) fl Neut % (Auto) (34.0-71.1) % Lymph % (Auto) (19.3-51.7) % [place] % (Auto) (4.7-12.5) % Eos % (Auto) (0.7-5.8) Baso % (Auto) (0.1-1.2) % Neut # (Auto) (1.56-6.13) K/mm3 Lymph # (Auto) (1.18-3.74) K/mm3 [place] # (Auto) (0.24-0.36) K/mm3 Eos # (Auto) (0.04-0.36) K/mm3 Baso # (Auto) (0.01-0.08) K/mm3 Manual Slide Review Sodium (136-145) mEq/L Potassium (3.5-5.1) mEq/L Chloride (98-107) mEq/L Carbon Dioxide (21-32) mEq/L Anion Gap (5-15) BUN (7-18) mg/dL Creatinine (0.55-1.02) mg/dL Est Cr Clr Drug Dosing mL/min Estimated GFR (MDRD) (>60) mL/min BUN/Creatinine Ratio (14-18) Glucose (83-115) mg/dL POC Glucose 187 H (83-110) mg/dL Lactic Acid (0.4-2.0) mmol/L Calcium (8.5-10.1) mg/dL Magnesium (1.8-2.4) mg/dl C-Reactive Protein (<1.0) mg/dL NT-Pro-B Natriuret Pep (0-450) pg/mL Mycoplasma pneumon IgM (NEGATIVE) MRSA (PCR) Uli Results Last 24 Hours: Microbiology 02/23/18 09:45 Aerobic Blood Culture - Preliminary Blood - Venous - Lab Draw NO GROWTH AFTER 1 DAY Anaerobic Blood Culture - Preliminary Gram Positive Cocci In Pairs 02/23/18 09:55 Urine Culture - Preliminary Urine, Catheterized Gram Negative Rods 02/23/18 09:05 Aerobic Blood Culture - Preliminary Blood - Venous NO GROWTH AFTER 1 DAY Anaerobic Blood Culture - Preliminary Gram Positive Cocci In Pairs 02/23/18 14:09 Influenza Type A Antigen Screen - Final Nasal, Unspecified NEGATIVE INFLUENZA A VIRUS AG Influenza Type B Antigen Screen - Final NEGATIVE INFLUENZA B VIRUS AG Med Orders - Current: Current Medications Acetaminophen (Tylenol) 650 mg PO Q4H PRN PRN Reason: Pain (Mild 1-3)/fever Hydrocodone Bitart/Acetaminophen ([place] 325-5 Mg) 1 tab PO Q4H PRN PRN Reason: Pain (moderate 4-6) Albuterol/Ipratropium (Duoneb 3.0-0.5 Mg/3 Ml) 3 ml NEB Q4H PRN PRN Reason: Shortness Of Breath/wheezing Benazepril HCl (Lotensin) 5 mg PO DAILY [facility] Last Admin: 02/24/18 08:36 Dose: 5 mg Bisacodyl (Dulcolax) 5 mg PO DAILY PRN PRN Reason: Constipation Calcium Carbonate/Glycine (Calcium Carbonate) 1,200 mg PO BID [facility] Last Admin: 02/24/18 09:51 Dose: 1,200 mg Dextrose/Water (Dextrose 50% In Water) 50 ml IVPUSH ASDIRECTED PRN PRN Reason: hypoglycemia Docusate Sodium (Colace) 100 mg PO BID PRN PRN Reason: Constipation Enoxaparin Sodium (Lovenox) 30 mg SUBCUT DAILY [facility] Last Admin: 02/24/18 08:36 Dose: 30 mg Hydralazine HCl (Apresoline) 10 mg IVPUSH Q6H PRN PRN Reason: Hypertension Ceftriaxone Sodium 2 gm/ (Sodium Chloride) 100 mls @ 100 mls/hr IV Q24H [facility] Last Admin: 02/24/18 09:51 Dose: 100 mls/hr Potassium Chloride 10 meq/ (Premix) 100 mls @ 100 mls/hr IV Q1H [facility] Stop: 02/24/18 15:59 Magnesium Sulfate 2 gm/ Premix 50 mls @ 25 mls/hr IV ONETIME ONE Stop: 02/24/18 12:59 Last Admin: 02/24/18 11:09 Dose: 25 mls/hr Doxycycline Hyclate 100 mg/ (Sodium Chloride) 100 mls @ 100 mls/hr IV Q12H [facility] Insulin Aspart (Novolog) 0 unit SUBCUT QIDACANDBED [facility]; Protocol Last Admin: 02/24/18 11:30 Dose: Not Given Magnesium Oxide (Magnesium Oxide) 400 mg PO BID [facility] Last Admin: 02/24/18 08:36 Dose: 400 mg Megestrol Acetate (Megace 40 Mg/Ml Susp) 400 mg PO DAILY [facility] Last Admin: 02/24/18 08:36 Dose: 400 mg Methylprednisolone Sodium Succinate (Solu-Medrol) 60 mg IVPUSH Q12H [facility] Last Admin: 02/24/18 11:12 Dose: 60 mg Metoprolol Tartrate (Lopressor) 5 mg IVPUSH Q4H PRN PRN Reason: Tachycardia Ondansetron HCl (Zofran Odt) 4 mg PO Q6H PRN PRN Reason: nausea, able to take PO Ondansetron HCl (Zofran) 4 mg IV Q6H PRN PRN Reason: Nausea/Vomiting Polyethylene Glycol (Miralax) 17 gm PO DAILY PRN PRN Reason: Constipation Senna/Docusate Sodium (Senna Plus) 1 tab PO BID PRN PRN Reason: Constipation Simvastatin (Zocor) 40 mg PO DAILY [facility] Last Admin: 02/24/18 08:36 Dose: 40 mg Discontinued Medications Furosemide (Lasix) 20 mg IVPUSH NOW ONE Stop: 02/23/18 19:05 Last Admin: 02/23/18 19:25 Dose: 20 mg Furosemide (Lasix) 20 mg IVPUSH NOW ONE Stop: 02/24/18 09:38 Last Admin: 02/24/18 10:05 Dose: 20 mg Sodium Chloride (Normal Saline) 1,000 mls @ 250 mls/hr IV ASDIRECTED [facility] Last Admin: 02/23/18 17:50 Dose: 250 mls/hr Ceftriaxone Sodium 2 gm/ (Sodium Chloride) 100 mls @ 100 mls/hr IV Q24H [facility] Last Admin: 02/23/18 10:34 Dose: 100 mls/hr Magnesium Sulfate 2 gm/ Premix 50 mls @ 25 mls/hr IV ONETIME ONE Stop: 02/23/18 14:27 Last Admin: 02/23/18 13:26 Dose: 25 mls/hr Ceftriaxone Sodium 2 gm/ (Sodium Chloride) 100 mls @ 100 mls/hr IV Q24H [facility] Ceftriaxone Sodium 2 gm/ (Sodium Chloride) 100 mls @ 100 mls/hr IV Q24H [facility] Last Admin: 02/23/18 15:42 Dose: Not Given Dextrose/Sodium Chloride (Dextrose 5%-Normal Saline) 1,000 mls @ 100 mls/hr IV ASDIRECTED [facility] Stop: 02/24/18 05:14 Last Admin: 02/23/18 19:37 Dose: 100 mls/hr Dextrose/Sodium Chloride (Dextrose 5%-Normal Saline) 1,000 mls @ 75 mls/hr IV ASDIRECTED [facility] Potassium Chloride 10 meq/ (Premix) 100 mls @ 100 mls/hr IV Q1H [facility] Stop: 02/24/18 12:44 Magnesium Sulfate 2 gm/ Premix 50 mls @ 25 mls/hr IV ONETIME ONE Stop: 02/24/18 11:35 Last Admin: 02/24/18 09:43 Dose: Not Given Morphine Sulfate (Morphine) 0.5 mg IVPUSH Q2H PRN PRN Reason: Pain (severe 7-10) Stop: 02/24/18 12:25 Ondansetron HCl (Zofran) 4 mg IVPUSH ONETIME ONE Stop: 02/23/18 08:33 Last Admin: 02/23/18 08:53 Dose: 4 mg Potassium Chloride (Klor-Con M20) 40 meq PO ONETIME ONE Stop: 02/24/18 09:32 Last Admin: 02/24/18 09:51 Dose: 40 meq Vancomycin HCl (Pharmacy To Dose - Vancomycin) 1 dose .XX ASDIRECTED [facility] - Exam Quality Assessment: DVT Prophylaxis General: Alert, Oriented, Cooperative, Mild Distress HEENT: Pupils Equal, Pupils Reactive, EOMI, Mucous Membr. Moist/[place] Neck: Supple, No JVD, No Thyromegaly Lungs: Normal Respiratory Effort, Decreased Breath Sounds, Rales, Wheezing Cardiovascular: Regular Rate, Regular Rhythm, Murmurs GI/Abdominal Exam: Normal Bowel Sounds, Soft, Non-Tender, No Organomegaly, No Distention, No Abnormal Bruit, No Mass, Pelvis Stable (Female) Exam: Deferred Back Exam: Normal Inspection, Decreased Range of Motion Extremities: Normal Inspection, Normal Range of Motion, Non-Tender, No Pedal Edema, Normal Capillary Refill Peripheral Pulses: 2+: Radial (L), Radial (R), Posterior Tibial (L), Posterior Tibial (R), Dorsalis Pedis (L), Dorsalis Pedis (R) Skin: Warm, Dry, Intact Neurological: No New Focal Deficit Psy/Mental Status: Alert, Normal Affect, Normal Mood - Problem List & Annotations (1) Bacteremia SNOMED Code(s): 8979814 Code(s): R78.81 - BACTEREMIA Status: Acute Priority: High Current Visit : Yes (2) Nausea SNOMED Code(s): 855513170 Code(s): R11.0 - NAUSEA Status: Resolved Priority: High Current Visit: Yes (3) Congestive heart failure SNOMED Code(s): 37854096 Code(s): I50.9 - HEART FAILURE, UNSPECIFIED Status: Acute Priority: High Current Visit: Yes Qualifiers: Heart failure type: diastolic Heart failure chronicity: acute on chronic Qualified Code(s): I50.33 - Acute on chronic diastolic (congestive) heart failure (4) Metabolic acidosis SNOMED Code(s): 48949350 Code(s): E87.2 - ACIDOSIS Status: Acute Priority: High Current Visit: Yes (5) Pulmonary fibrosis determined by high resolution computed tomography SNOMED Code(s): 75169348, 177329403 Code(s): J84.10 - PULMONARY FIBROSIS, UNSPECIFIED Status: Acute Priority : High Current Visit: Yes (6) Upper urinary tract infection SNOMED Code(s): 293973895 Code(s): N39.0 - URINARY TRACT INFECTION, SITE NOT SPECIFIED Status: Acute Priority: High Current Visit: Yes (7) Dehydration SNOMED Code(s): 97584623 Code(s): E86.0 - DEHYDRATION Status: Acute Priority: High Current Visit : Yes (8) Leukocytosis SNOMED Code(s): 532739288, 429002371 Code(s): D72.829 - ELEVATED WHITE BLOOD CELL COUNT, UNSPECIFIED Status: Acute Priority: High Current Visit: Yes Qualifiers: Leukocytosis type: unspecified Qualified Code(s): D72.829 - Elevated white blood cell count, unspecified (9) Weight loss, unintentional SNOMED Code(s): 630829343 Code(s): R63.4 - ABNORMAL WEIGHT LOSS Status: Acute Priority: High Current Visit: Yes (10) Failure to thrive in adult SNOMED Code(s): 735869885 Code(s): R62.7 - ADULT FAILURE TO THRIVE Status: Acute Priority: High Current Visit: Yes (11) Weakness SNOMED Code(s): 51544872 Code(s): R53.1 - WEAKNESS Status: Acute Priority: High Current Visit: Yes (12) Hypokalemia SNOMED Code(s): 62321778 Code(s): E87.6 - HYPOKALEMIA Status: Acute Priority: High Current Visit : Yes (13) Hypomagnesemia SNOMED Code(s): 809702324 Code(s): E83.42 - HYPOMAGNESEMIA Status: Acute Priority: High Current Visit: Yes (14) Hypocalcemia SNOMED Code(s): 5490326 Code(s): E83.51 - HYPOCALCEMIA Status: Acute Priority: High Current Visit: Yes - Problem List Review Problem List Initiated/Reviewed/Updated: Yes - My Orders Last 24 Hours: My Active Orders 02/23/18 12:23 Height and Weight [RC] 04 Oxygen Therapy [RC] PRN Up With Assistance [RC] QSHIFT VTE/DVT Education [RC] QSHIFT Vital Signs [RC] Q4H Consult to Case Management [CONS] Routine Consult to Aperture Mask Etcher [CONS] Routine Consult to Auto Body Straightener [CONS] Routine OT Evaluation and Treatment [CONS] Routine PT Evaluation and Treatment [CONS] Routine Acetaminophen [Tylenol] 650 mg PO Q4H PRN Acetaminophen/HYDROcodone [[place] 325-5 MG] 1 tab PO Q4H PRN Albuterol/Ipratropium [DuoNeb 3.0-0.5 MG/3 ML] 3 ml NEB Q4H PRN Bisacodyl [Dulcolax] 5 mg PO DAILY PRN Docusate Sodium [Colace] 100 mg PO BID PRN Docusate Sodium/Sennosides [Senna Plus] 1 tab PO BID PRN Ondansetron [Zofran ODT] 4 mg PO Q6H PRN Ondansetron [Zofran] 4 mg IV Q6H PRN Polyethylene Glycol 3350 [MiraLAX] 17 gm PO DAILY PRN Resuscitation Status Routine 02/23/18 12:24 Cardiac Monitoring [RC] CONTINUOUS Intake and Output [RC] 04,16 Pulse Oximetry [RC] PRN 02/23/18 12:25 RT Aerosol Therapy [RC] .PRN 02/23/18 12:30 Metoprolol Tartrate [Lopressor] 5 mg IVPUSH Q4H PRN hydrALAZINE [Apresoline] 10 mg IVPUSH Q6H PRN 02/23/18 12:31 Blood Glucose Check, Bedside [RC] QIDACANDBED Dextrose 50% in Water 50 ml IVPUSH ASDIRECTED PRN 02/23/18 12:32 MANUELA Hose [Antiembolic Hose] [OM.PC] Routine 02/23/18 14:09 INFLUENZA A+B AG SCREEN [RM] Routine 02/23/18 17:00 Insulin Aspart [NovoLOG] See Protocol SUBCUT QIDACANDBED 02/23/18 17:04 Aspiration Precautions [RC] QSHIFT RT Incentive Spirometry [RC] ASDIRECTED 02/23/18 21:00 Magnesium Oxide 400 mg PO BID 02/23/18 Dinner ADA Diabetic [[place] [employer] Diet] [DIET] 02/24/18 09:00 Benazepril [Lotensin] 5 mg PO DAILY Enoxaparin [Lovenox] 30 mg SUBCUT DAILY Megestrol [Megace 40 MG/ML Susp] 400 mg PO DAILY Simvastatin [Zocor] 40 mg PO DAILY 02/24/18 09:45 Calcium Carbonate 1,200 mg PO BID 02/24/18 09:52 Isolation [COMM] Routine 02/24/18 10:30 cefTRIAXone [Rocephin] 2 gm Sodium Chloride 0.9% [Normal Saline] 100 ml IV Q24H 02/24/18 11:00 Magnesium Sulfate/Water [Magnesium Sulfate 2 GM in Water 50 ML] 2 gm Premix Bag 1 bag IV ONETIME methylPREDNISolone Sod Succ [Solu-MEDROL] 60 mg IVPUSH Q12H 02/24/18 11:24 CULTURE SPUTUM + SMEAR [RM] Routine 02/24/18 12:14 Acapella [RT Chest Physiotherapy] [RC] ASDIRECTED 02/24/18 13:00 Potassium Chloride [KCl 10 MEQ in Water 100 ML] 10 meq Premix Bag 1 bag IV Q1H 02/24/18 17:00 Doxycycline [Vibramycin] 100 mg Sodium Chloride 0.9% [Normal Saline] 100 ml IV Q12H 02/25/18 05:11 BASIC METABOLIC PANEL,BMP [CHEM] AM CBC WITH AUTO DIFF [HEME] AM CRP [C-REACTIVE PROTEIN] [CHEM] AM MAGNESIUM [CHEM] AM 02/25/18 08:00 CXR [Chest 2V] [CR] Routine 02/26/18 05:11 BASIC METABOLIC PANEL,BMP [CHEM] AM CBC WITH AUTO DIFF [HEME] AM CRP [C-REACTIVE PROTEIN] [CHEM] AM MAGNESIUM [CHEM] AM 02/27/18 05:11 BASIC METABOLIC PANEL,BMP [CHEM] AM CBC WITH AUTO DIFF [HEME] AM CRP [C-REACTIVE PROTEIN] [CHEM] AM MAGNESIUM [CHEM] AM - Plan Plan:: I/P: Acute; Bacteremia -Blood culture growing gram negative cocci in pairs -Different organism than urine -Add doxycycline for coverage -Sensitivities pending -Repeat blood cultures in 48 hours \ -Contact precautions -Repeat CXR shows nothing acute UTI -Reports weakness, weight loss, malaise, but no urinary symptoms, no CVA tenderness, no fever -UA unimpressive with no leukocyte esterase or nitrite, 40-50 WBC, 20-30 RBC , but many bacteria -Culture growing gram negative rods thus far -WBC 23.94-->17.47, CRP 22.2-->20.9 -IV fluids as ordered -Rocephin 2gm Q24HR -Blood cultures as above -Lactic acid 1.5-->0.9 Failure to thrive -Assisted living resident -Has reportedly needed 2 person assistance for last several days -10-12 lb weight loss -Poor oral intake, weakness -PT/OT -SW consult -Hospitalized last year for falls/Bronchitis -Old records indicate chronic unsteady gait -Aperture Mask Etcher consult Pulmonary fibrosis -Difficult to exclude underlying pneumonia -Noted on CT scan (12/24/17) -1. Fairly severe interstital fibrosis -2. more focal area of density within both posterior lung bases. Without previous study, uncertain if findings represent change from chronic aspiration, pneumonia, or more focal areas of scarring. -3. Nodular density (2.1 cm) within approximate superior segment of the left lower lung with similar differential, although difficult to exclude a neoplastic nodule. -Recommend follow-up CT without contrast in 4 months -Continue to monitor -Recommend establish with pulmonogist outpatient after discharge Heart failure -No edema, CXR shows no pulmonary congestion, Repeat CXR negative as well -BNP 1972--> 5357 (aggressive rehydration) -No prior echo on file -Echo obtained - pending -12-lead suggests right atrial and left ventricular hypertrophy -3/6 pansystolic murmur suggesting aortic stenosis Leukocytosis -Strep pneumonia pending -Negative mycoplasma and influenza -CRP 22.5 -UA unimpressive as above, Culture pending -Difficult to exclude pneumonia on CT/Chest x-ray -Repeat CXR 02/24/18 shows nothing acute -Antibiotics as ordered -Blood cultures as above Electrolyte abnormalities -Hypokalemia -Hypomagnesemia -Hypocalcemia -2/2 inadequate intake -Supplement -Aperture Mask Etcher consulted Chronic: HTN Type II DM - SS insulin, QID glucose checks Hypomagnesemia HLD Plan: Admit to medical floor on telemetry Other orders as indicated above Routine AM labs PT/OT CM/SW for discharge planning Home medications as ordered Code Status: Full code; PCP: Dr. Jalloh at [facility].
[2018-02-24] MEDS: Potassium Chloride 10 MEQ in Premix Bag 1 BAG IV SCH ×3 (13:26→15:47)
[2018-02-24] MEDS ORDERED: Potassium Chloride 10% 20 MEQ/15 ML Soln 15 ML UD Cup PO ONE (15:45)
[2018-02-24] MEDS: Doxycycline 100 MG in Sodium Chloride 0.9% 100 ML IV SCH (17:06)
[2018-02-25] MEDS: Doxycycline 100 MG in Sodium Chloride 0.9% 100 ML IV SCH (04:18)
[2018-02-25] MEDS: Magnesium Oxide 400 MG Tab PO SCH ×2 (08:41→20:35)
[2018-02-25] MEDS: Enoxaparin 30 MG/0.3 ML Syringe SUBCUT SCH (08:41)
[2018-02-25] MEDS: Calcium Carbonate 600 MG Tab PO SCH ×2 (08:41→20:35)
[2018-02-25] MEDS: Simvastatin 40 MG Tab PO SCH (08:41)
[2018-02-25] MEDS: Megestrol Susp 40 MG/ML 10 ML UD Cup PO SCH (08:41)
[2018-02-25] MEDS: Insulin Aspart 100 Units/ML 3 ML Pen SUBCUT SCH ×4 (08:42→21:11)
[2018-02-25] MEDS: cefTRIAXone 2 GM in Sodium Chloride 0.9% 100 ML IV SCH (11:31)
[2018-02-25] MEDS: methylPREDNISolone Sodium Succinate 40 MG/1 ML SDV IVPUSH SCH ×2 (11:31→22:31)
--- NOTE | 2018-02-25 15:40 | PCM.PN ---
- General Info Date of Service: 02/25/18 Admission Dx/Problem (Free Text): Admission Diagnosis/Problem Admission Diagnosis/Problem Sepsis due to urinary tract infection Subjective Update: In to see Rosa. She is resting in bed. She has no complaints. I explained that she does have a UTI and that her sputum culture came back positive, so she also has pneumonia. We will d/c Doxycyline and Rocephin and start Levoquin to cover all of the bacteria present in the lungs, blood, and bladder. She states she understands. She is ambulating with help to the restroom. States she is not feeling weak today, but overall feels slightly worse than yesterday. No edema noted. No concerns from nursing. Functional Status: Reports: Pain Controlled, Tolerating Diet, Ambulating, Urinating, Incentive Spirometry - Review of Systems General: Reports: Weakness, Fatigue, Malaise. Denies: Fever, Chills HEENT: Reports: No Symptoms. Denies: Eye Pain, Sinus Congestion, Sore Throat Pulmonary: Reports: Cough, Sputum, Wheezing. Denies: Shortness of Breath, Pleuritic Chest Pain Cardiovascular: Reports: No Symptoms. Denies: Chest Pain, Palpitations, Dyspnea on Exertion, Edema Gastrointestinal: Reports: No Symptoms. Denies: Abdominal Pain, Diarrhea, Nausea, Vomiting Genitourinary: Reports: No Symptoms. Denies: Dysuria, Frequency, Burning, Pain , Urgency Musculoskeletal: Reports: Back Pain, Joint Pain Neurological: Reports: No Symptoms Psychiatric: Reports: No Symptoms - Patient Data Vitals - Most Recent: Last Vital Signs Temp 97.9 F 02/25/18 08:09 Pulse 88 02/25/18 08:09 Resp 18 02/25/18 08:09 BP 107/87 02/25/18 08:09 Pulse Ox 95 02/25/18 08:09 Weight - Most Recent: 93 lb 14.4 oz I&O - Last 24 Hours: Intake & Output 02/25/18 02/25/18 02/25/18 06:59 14:59 22:59 Intake Total 1000 60 Balance 1000 60 Lab Results Last 24 Hours: Laboratory Results - last 24 hr 02/24/18 02/24/18 02/25/18 Range/Units 17:10 21:24 06:16 WBC 15.43 H (3.98-10.04) K/mm3 RBC 3.60 L (3.98-5.22) M/mm3 Hgb 10.4 L (11.2-15.7) gm/L Hct 31.3 L (34.1-44.9) % MCV 86.9 (79.4-94.8) fl MCH 28.9 (25.6-32.2) pg MCHC 33.2 (32.2-35.5) g/dl RDW Std Deviation 43.8 (36.4-46.3) fL Plt Count 554 H (182-369) K/mm3 MPV 8.7 L (9.4-12.3) fl Neut % (Auto) 94.4 H (34.0-71.1) % Lymph % (Auto) 2.8 L (19.3-51.7) % [place] % (Auto) 2.2 L (4.7-12.5) % Eos % (Auto) 0 L (0.7-5.8) Baso % (Auto) 0.0 L (0.1-1.2) % Neut # (Auto) 14.57 H (1.56-6.13) K/mm3 Lymph # (Auto) 0.43 L (1.18-3.74) K/mm3 [place] # (Auto) 0.34 (0.24-0.36) K/mm3 Eos # (Auto) 0.00 L (0.04-0.36) K/mm3 Baso # (Auto) 0.00 L (0.01-0.08) K/mm3 Manual Slide Review Abnormal smear Sodium (136-145) mEq/L Potassium (3.5-5.1) mEq/L Chloride (98-107) mEq/L Carbon Dioxide (21-32) mEq/L Anion Gap (5-15) BUN (7-18) mg/dL Creatinine (0.55-1.02) mg/dL Est Cr Clr Drug Dosing mL/min Estimated GFR (MDRD) (>60) mL/min BUN/Creatinine Ratio (14-18) Glucose (83-115) mg/dL POC Glucose 323 H 281 H (83-110) mg/dL Calcium (8.5-10.1) mg/dL Magnesium (1.8-2.4) mg/dl C-Reactive Protein (<1.0) mg/dL NT-Pro-B Natriuret Pep (0-450) pg/mL 02/25/18 02/25/18 02/25/18 Range/Units 06:16 06:16 06:35 WBC (3.98-10.04) K/mm3 RBC (3.98-5.22) M/mm3 Hgb (11.2-15.7) gm/L Hct (34.1-44.9) % MCV (79.4-94.8) fl MCH (25.6-32.2) pg MCHC (32.2-35.5) g/dl RDW Std Deviation (36.4-46.3) fL Plt Count (182-369) K/mm3 MPV (9.4-12.3) fl Neut % (Auto) (34.0-71.1) % Lymph % (Auto) (19.3-51.7) % [place] % (Auto) (4.7-12.5) % Eos % (Auto) (0.7-5.8) Baso % (Auto) (0.1-1.2) % Neut # (Auto) (1.56-6.13) K/mm3 Lymph # (Auto) (1.18-3.74) K/mm3 [place] # (Auto) (0.24-0.36) K/mm3 Eos # (Auto) (0.04-0.36) K/mm3 Baso # (Auto) (0.01-0.08) K/mm3 Manual Slide Review Sodium 130 L (136-145) mEq/L Potassium 4.8 (3.5-5.1) mEq/L Chloride 98 (98-107) mEq/L Carbon Dioxide 25 (21-32) mEq/L Anion Gap 11.8 (5-15) BUN 14 (7-18) mg/dL Creatinine 0.5 L (0.55-1.02) mg/dL Est Cr Clr Drug Dosing 57.32 mL/min Estimated GFR (MDRD) > 60 (>60) mL/min BUN/Creatinine Ratio 28.0 H (14-18) Glucose 196 H (83-115) mg/dL POC Glucose 208 H (83-110) mg/dL Calcium 8.3 L (8.5-10.1) mg/dL Magnesium 1.8 (1.8-2.4) mg/dl C-Reactive Protein 13.7 H* (<1.0) mg/dL NT-Pro-B Natriuret Pep 5267 H (0-450) pg/mL 02/25/18 Range/Units 11:13 WBC (3.98-10.04) K/mm3 RBC (3.98-5.22) M/mm3 Hgb (11.2-15.7) gm/L Hct (34.1-44.9) % MCV (79.4-94.8) fl MCH (25.6-32.2) pg MCHC (32.2-35.5) g/dl RDW Std Deviation (36.4-46.3) fL Plt Count (182-369) K/mm3 MPV (9.4-12.3) fl Neut % (Auto) (34.0-71.1) % Lymph % (Auto) (19.3-51.7) % [place] % (Auto) (4.7-12.5) % Eos % (Auto) (0.7-5.8) Baso % (Auto) (0.1-1.2) % Neut # (Auto) (1.56-6.13) K/mm3 Lymph # (Auto) (1.18-3.74) K/mm3 [place] # (Auto) (0.24-0.36) K/mm3 Eos # (Auto) (0.04-0.36) K/mm3 Baso # (Auto) (0.01-0.08) K/mm3 Manual Slide Review Sodium (136-145) mEq/L Potassium (3.5-5.1) mEq/L Chloride (98-107) mEq/L Carbon Dioxide (21-32) mEq/L Anion Gap (5-15) BUN (7-18) mg/dL Creatinine (0.55-1.02) mg/dL Est Cr Clr Drug Dosing mL/min Estimated GFR (MDRD) (>60) mL/min BUN/Creatinine Ratio (14-18) Glucose (83-115) mg/dL POC Glucose 277 H (83-110) mg/dL Calcium (8.5-10.1) mg/dL Magnesium (1.8-2.4) mg/dl C-Reactive Protein (<1.0) mg/dL NT-Pro-B Natriuret Pep (0-450) pg/mL Uli Results Last 24 Hours: Microbiology 02/24/18 11:24 Gram Stain - Final Sputum - Expectorated Sputum Culture - Preliminary Gram Positive Cocci 02/23/18 09:55 Urine Culture - Final Urine, Catheterized Klebsiella Pneumoniae Enterococcus Faecalis 02/23/18 09:05 Aerobic Blood Culture - Preliminary Blood - Venous NO GROWTH AFTER 2 DAYS Anaerobic Blood Culture - Preliminary Staphylococcus Aureus 02/23/18 09:45 Aerobic Blood Culture - Preliminary Blood - Venous - Lab Draw Staphylococcus Aureus Anaerobic Blood Culture - Preliminary Staphylococcus Aureus 02/24/18 07:30 Respiratory Virus Panel (PCR) - Final Nasopharyngeal Swab 02/23/18 09:55 Streptococcus pneumoniae Antigen (M - Final Urine Med Orders - Current: Current Medications Acetaminophen (Tylenol) 650 mg PO Q4H PRN PRN Reason: Pain (Mild 1-3)/fever Hydrocodone Bitart/Acetaminophen ([place] 325-5 Mg) 1 tab PO Q4H PRN PRN Reason: Pain (moderate 4-6) Albuterol/Ipratropium (Duoneb 3.0-0.5 Mg/3 Ml) 3 ml NEB Q4H PRN PRN Reason: Shortness Of Breath/wheezing Bisacodyl (Dulcolax) 5 mg PO DAILY PRN PRN Reason: Constipation Calcium Carbonate/Glycine (Calcium Carbonate) 1,200 mg PO BID [facility] Last Admin: 02/25/18 08:41 Dose: 1,200 mg Dextrose/Water (Dextrose 50% In Water) 50 ml IVPUSH ASDIRECTED PRN PRN Reason: hypoglycemia Docusate Sodium (Colace) 100 mg PO BID PRN PRN Reason: Constipation Enoxaparin Sodium (Lovenox) 30 mg SUBCUT DAILY [facility] Last Admin: 02/25/18 08:41 Dose: 30 mg Hydralazine HCl (Apresoline) 10 mg IVPUSH Q6H PRN PRN Reason: Hypertension Levofloxacin/Dextrose 500 mg/ (Premix) 100 mls @ 100 mls/hr IV ONETIME ONE Stop: 02/25/18 22:59 Levofloxacin/Dextrose 250 mg/ (Premix) 50 mls @ 50 mls/hr IV Q24H [facility] Insulin Aspart (Novolog) 0 unit SUBCUT QIDACANDBED [facility]; Protocol Last Admin: 02/25/18 11:40 Dose: 3 unit Magnesium Oxide (Magnesium Oxide) 400 mg PO BID [facility] Last Admin: 02/25/18 08:41 Dose: 400 mg Megestrol Acetate (Megace 40 Mg/Ml Susp) 400 mg PO DAILY [facility] Last Admin: 02/25/18 08:41 Dose: 400 mg Methylprednisolone Sodium Succinate (Solu-Medrol) 60 mg IVPUSH Q12H [facility] Last Admin: 02/25/18 11:31 Dose: 60 mg Metoprolol Tartrate (Lopressor) 5 mg IVPUSH Q4H PRN PRN Reason: Tachycardia Ondansetron HCl (Zofran Odt) 4 mg PO Q6H PRN PRN Reason: nausea, able to take PO Ondansetron HCl (Zofran) 4 mg IV Q6H PRN PRN Reason: Nausea/Vomiting Polyethylene Glycol (Miralax) 17 gm PO DAILY PRN PRN Reason: Constipation Saccharomyces Boulardii (Florastor) 250 mg PO BID [facility] Senna/Docusate Sodium (Senna Plus) 1 tab PO BID PRN PRN Reason: Constipation Simvastatin (Zocor) 40 mg PO DAILY [facility] Last Admin: 02/25/18 08:41 Dose: 40 mg Discontinued Medications Benazepril HCl (Lotensin) 5 mg PO DAILY [facility] Last Admin: 02/24/18 08:36 Dose: 5 mg Furosemide (Lasix) 20 mg IVPUSH NOW ONE Stop: 02/23/18 19:05 Last Admin: 02/23/18 19:25 Dose: 20 mg Furosemide (Lasix) 20 mg IVPUSH NOW ONE Stop: 02/24/18 09:38 Last Admin: 02/24/18 10:05 Dose: 20 mg Sodium Chloride (Normal Saline) 1,000 mls @ 250 mls/hr IV ASDIRECTED [facility] Last Admin: 02/23/18 17:50 Dose: 250 mls/hr Ceftriaxone Sodium 2 gm/ (Sodium Chloride) 100 mls @ 100 mls/hr IV Q24H [facility] Last Admin: 02/23/18 10:34 Dose: 100 mls/hr Magnesium Sulfate 2 gm/ Premix 50 mls @ 25 mls/hr IV ONETIME ONE Stop: 02/23/18 14:27 Last Admin: 02/23/18 13:26 Dose: 25 mls/hr Ceftriaxone Sodium 2 gm/ (Sodium Chloride) 100 mls @ 100 mls/hr IV Q24H [facility] Ceftriaxone Sodium 2 gm/ (Sodium Chloride) 100 mls @ 100 mls/hr IV Q24H [facility] Last Admin: 02/23/18 15:42 Dose: Not Given Ceftriaxone Sodium 2 gm/ (Sodium Chloride) 100 mls @ 100 mls/hr IV Q24H [facility] Last Admin: 02/25/18 11:31 Dose: 100 mls/hr Dextrose/Sodium Chloride (Dextrose 5%-Normal Saline) 1,000 mls @ 100 mls/hr IV ASDIRECTED [facility] Stop: 02/24/18 05:14 Last Admin: 02/23/18 19:37 Dose: 100 mls/hr Dextrose/Sodium Chloride (Dextrose 5%-Normal Saline) 1,000 mls @ 75 mls/hr IV ASDIRECTED [facility] Potassium Chloride 10 meq/ (Premix) 100 mls @ 100 mls/hr IV Q1H [facility] Stop: 02/24/18 12:44 Magnesium Sulfate 2 gm/ Premix 50 mls @ 25 mls/hr IV ONETIME ONE Stop: 02/24/18 11:35 Last Admin: 02/24/18 09:43 Dose: Not Given Potassium Chloride 10 meq/ (Premix) 100 mls @ 100 mls/hr IV Q1H [facility] Stop: 02/24/18 15:59 Last Admin: 02/24/18 15:47 Dose: Not Given Magnesium Sulfate 2 gm/ Premix 50 mls @ 25 mls/hr IV ONETIME ONE Stop: 02/24/18 12:59 Last Admin: 02/24/18 11:09 Dose: 25 mls/hr Doxycycline Hyclate 100 mg/ (Sodium Chloride) 100 mls @ 100 mls/hr IV Q12H [facility] Last Admin: 02/25/18 04:18 Dose: 100 mls/hr Morphine Sulfate (Morphine) 0.5 mg IVPUSH Q2H PRN PRN Reason: Pain (severe 7-10) Stop: 02/24/18 12:25 Ondansetron HCl (Zofran) 4 mg IVPUSH ONETIME ONE Stop: 02/23/18 08:33 Last Admin: 02/23/18 08:53 Dose: 4 mg Potassium Chloride (Klor-Con M20) 40 meq PO ONETIME ONE Stop: 02/24/18 09:32 Last Admin: 02/24/18 09:51 Dose: 40 meq Potassium Chloride (Potassium Chloride Solution) 40 meq PO ONETIME ONE Stop: 02/24/18 15:46 Last Admin: 02/24/18 16:02 Dose: 40 meq Vancomycin HCl (Pharmacy To Dose - Vancomycin) 1 dose .XX ASDIRECTED [place] - Exam Quality Assessment: DVT Prophylaxis. No: Supplemental Oxygen, Urine Catheter General: Alert, Oriented, Cooperative, Mild Distress HEENT: Pupils Equal, Pupils Reactive, EOMI, Mucous Membr. Moist/[place] Neck: Supple Lungs: Normal Respiratory Effort, Decreased Breath Sounds, Rales, Wheezing Cardiovascular: Regular Rate, Regular Rhythm, Murmurs GI/Abdominal Exam: Normal Bowel Sounds, Soft, Non-Tender, No Organomegaly, No Distention, No Abnormal Bruit, No Mass, Pelvis Stable (Female) Exam: Deferred Back Exam: Normal Inspection, Decreased Range of Motion Extremities: Normal Inspection, Normal Range of Motion, Non-Tender, No Pedal Edema, Normal Capillary Refill Peripheral Pulses: 2+: Posterior Tibial (L), Posterior Tibial (R), Dorsalis Pedis (L), Dorsalis Pedis (R) Skin: Warm, Dry, Intact Neurological: No New Focal Deficit Psy/Mental Status: Alert, Normal Affect, Normal Mood - Problem List & Annotations (1) Bacteremia SNOMED Code(s): 3537131 Code(s): R78.81 - BACTEREMIA Status: Acute Priority: High Current Visit : Yes (2) Congestive heart failure SNOMED Code(s): 46288667 Code(s): I50.9 - HEART FAILURE, UNSPECIFIED Status: Acute Priority: High Current Visit: Yes Qualifiers: Heart failure type: diastolic Heart failure chronicity: acute on chronic Qualified Code(s): I50.33 - Acute on chronic diastolic (congestive) heart failure (3) Dehydration SNOMED Code(s): 49973146 Code(s): E86.0 - DEHYDRATION Status: Acute Priority: High Current Visit : Yes (4) Failure to thrive in adult SNOMED Code(s): 067103515 Code(s): R62.7 - ADULT FAILURE TO THRIVE Status: Acute Priority: High Current Visit: Yes (5) Hypocalcemia SNOMED Code(s): 9432931 Code(s): E83.51 - HYPOCALCEMIA Status: Acute Priority: High Current Visit: Yes (6) Hypokalemia SNOMED Code(s): 72824806 Code(s): E87.6 - HYPOKALEMIA Status: Acute Priority: High Current Visit : Yes (7) Hypomagnesemia SNOMED Code(s): 663274689 Code(s): E83.42 - HYPOMAGNESEMIA Status: Acute Priority: High Current Visit: Yes (8) Leukocytosis SNOMED Code(s): 389327877, 949124589 Code(s): D72.829 - ELEVATED WHITE BLOOD CELL COUNT, UNSPECIFIED Status: Acute Priority: High Current Visit: Yes Qualifiers: Leukocytosis type: unspecified Qualified Code(s): D72.829 - Elevated white blood cell count, unspecified (9) Metabolic acidosis SNOMED Code(s): 62318503 Code(s): E87.2 - ACIDOSIS Status: Acute Priority: High Current Visit: Yes (10) Pulmonary fibrosis determined by high resolution computed tomography SNOMED Code(s): 71766076, 067663456 Code(s): J84.10 - PULMONARY FIBROSIS, UNSPECIFIED Status: Acute Priority : High Current Visit: Yes (11) Upper urinary tract infection SNOMED Code(s): 186153715 Code(s): N39.0 - URINARY TRACT INFECTION, SITE NOT SPECIFIED Status: Acute Priority: High Current Visit: Yes (12) Weakness SNOMED Code(s): 31362540 Code(s): R53.1 - WEAKNESS Status: Acute Priority: High Current Visit: Yes (13) Weight loss, unintentional SNOMED Code(s): 047336864 Code(s): R63.4 - ABNORMAL WEIGHT LOSS Status: Acute Priority: High Current Visit: Yes (14) Nausea SNOMED Code(s): 875935302 Code(s): R11.0 - NAUSEA Status: Resolved Priority: High Current Visit: Yes (15) Pneumonia SNOMED Code(s): 812010666 Code(s): J18.9 - PNEUMONIA, UNSPECIFIED ORGANISM Status: Acute Priority: High Current Visit: Yes Qualifiers: Pneumonia type: due to unspecified organism Laterality: unspecified laterality Lung location: unspecified part of lung Qualified Code(s): J18.9 - Pneumonia, unspecified organism - Problem List Review Problem List Initiated/Reviewed/Updated: Yes - My Orders Last 24 Hours: My Active Orders 02/25/18 21:00 Saccharomyces Boulardii [Florastor] 250 mg PO BID 02/25/18 22:00 Levofloxacin/Dextrose 5%-Water [Levaquin in D5W 500 MG/100 ML] 500 mg Premix Bag 1 bag IV ONETIME 02/26/18 22:00 Levofloxacin/Dextrose 5%-Water [Levaquin in D5W 250 MG/50 ML] 250 mg Premix Bag 1 bag IV Q24H - Plan Plan:: I/P: Acute: Acute Pneumonia, bacterial -Sputum Culture positive for gram positive cocci, most likely Staph Aureus ( same as blood culture) -Mycoplasma, Influenza, Strep pneumonia negative -WBC 23.94-->17.47-->15.43 -CRP 22.2-->20.9-->13.7 -Repeat CXR shows nothing acute -Noted on CT scan (12/24/17) -1. Fairly severe interstitial fibrosis -2. More focal area of density within both posterior lung bases. Without previous study, uncertain if findings represent change from chronic aspiration, pneumonia, or more focal areas of scarring. -3. Nodular density (2.1 cm) within approximate superior segment of the left lower lung with similar differential, although difficult to exclude a neoplastic nodule. -Recommend follow-up CT without contrast in 4 months -Recommend establish with outside residential sales professional outpatient after discharge -Start Levoquin to cover all organisms -RT/Nebs/IS/FV Bacteremia -Blood culture--> Staph Aureus -Different organism than urine, most likely 2/2 Pneumonia -Add doxycycline for coverage--> D/C, starting Levoquin today to cover all organisms -Repeat blood cultures in 48 hours -Contact precautions UTI -Reports weakness, weight loss, malaise, but no urinary symptoms, no CVA tenderness, no fever -UA unimpressive with no leukocyte esterase or nitrite, 40-50 WBC, 20-30 RBC , but many bacteria -Culture --> positive for Klebseilla Pneumoniae and Enterococcus Faecalis -WBC 23.94-->17.47-->15.43 -CRP 22.2-->20.9-->13.7 -Lactic acid 1.5-->0.9 -IV fluids as ordered -Rocephin 2gm Q24HR--> D/C; Start Levoquin to cover bacteria found in Culture -Blood cultures as above Failure to thrive -Assisted living resident -Has reportedly needed 2 person assistance for last several days -10-12 lb weight loss -Poor oral intake, weakness -PT/OT -SW consult -Hospitalized last year for falls/Bronchitis -Old records indicate chronic unsteady gait -Vice President Planning consult Heart failure -No edema, CXR shows no pulmonary congestion, Repeat CXR negative as well -BNP 1972--> 5357-->5267 (aggressive rehydration) -No prior echo on file -Echo obtained - pending -12-lead suggests right atrial and left ventricular hypertrophy -3/6 pansystolic murmur suggesting aortic stenosis Electrolyte abnormalities -Hypokalemia -Hypomagnesemia -Hypocalcemia -2/2 inadequate intake -Supplement -Vice President Planning consulted Chronic: HTN Type II DM - SS insulin, QID glucose checks Hypomagnesemia HLD Pulmonary fibrosis Pulmonary nodule --> f/u with outside residential sales professional, repeat CT w/o contrast in 4 months Plan: Admit to medical floor on telemetry Other orders as indicated above Routine AM labs DVT prophylaxis: Lovenox MANUELA hose GI prophylaxis: Pepcid RT/PT/OT CM/SW for discharge planning--> PT AND FAMILY HAVE DECIDED ON [facility] FOR PLACEMENT Home medications as ordered Most likely D/C Saturday Code Status: Full code; PCP: Dr. Jalloh at [facility].
[2018-02-25] MEDS: Famotidine 20 MG Tab PO SCH ×2 (16:59→20:35)
[2018-02-25] MEDS: Saccharomyces Boulardii (Probiotic) 250 MG Cap PO SCH (20:35)
[2018-02-25] MEDS ORDERED: Levofloxacin/Dextrose 5%-Water 500 MG in Premix Bag 1 BAG IV ONE (22:00)
[2018-02-26] MEDS: Calcium Carbonate 600 MG Tab PO SCH ×2 (08:38→21:05)
[2018-02-26] MEDS: Megestrol Susp 40 MG/ML 10 ML UD Cup PO SCH (08:40)
[2018-02-26] MEDS: Insulin Aspart 100 Units/ML 3 ML Pen SUBCUT SCH ×4 (08:41→21:06)
[2018-02-26] MEDS: Enoxaparin 30 MG/0.3 ML Syringe SUBCUT SCH (08:44)
[2018-02-26] MEDS: Famotidine 20 MG Tab PO SCH (08:49)
[2018-02-26] MEDS: Simvastatin 40 MG Tab PO SCH (08:50)
[2018-02-26] MEDS: Saccharomyces Boulardii (Probiotic) 250 MG Cap PO SCH ×2 (08:52→21:05)
[2018-02-26] MEDS: Magnesium Oxide 400 MG Tab PO SCH ×2 (08:52→21:05)
[2018-02-26] MEDS ORDERED: Sodium Chloride 0.9% 10 ML Syringe FLUSH PRN (12:30)
--- NOTE | 2018-02-26 12:38 | PCM.PN ---
- General Info Date of Service: 02/26/18 Admission Dx/Problem (Free Text): Admission Diagnosis/Problem Admission Diagnosis/Problem Sepsis due to urinary tract infection Subjective Update: In to see Rosa. She is resting in bed. She has no complaints. She is ambulating with help to the restroom. States she is feeling better today. BNP is extremely elevated, but clinically she is stable. No edema noted. No weight gain. No concerns from nursing. Functional Status: Reports: Pain Controlled, Tolerating Diet, Ambulating, Urinating - Review of Systems General: Reports: Weakness, Fatigue. Denies: Fever, Chills HEENT: Reports: No Symptoms Pulmonary: Reports: Cough (improving), Sputum, Wheezing. Denies: Shortness of Breath, Pleuritic Chest Pain Cardiovascular: Reports: No Symptoms. Denies: Chest Pain, Palpitations, Dyspnea on Exertion, Edema Gastrointestinal: Reports: No Symptoms Genitourinary: Reports: No Symptoms Musculoskeletal: Reports: Joint Pain Skin: Reports: No Symptoms Neurological: Reports: No Symptoms Psychiatric: Reports: No Symptoms - Patient Data Vitals - Most Recent: Last Vital Signs Temp 97.4 F 02/26/18 11:06 Pulse 86 02/26/18 11:06 Resp 16 02/26/18 11:06 BP 111/49 L 02/26/18 11:06 Pulse Ox 97 02/26/18 11:07 Weight - Most Recent: 94 lb 6.4 oz I&O - Last 24 Hours: Intake & Output 02/25/18 02/26/18 02/26/18 22:59 06:59 14:59 Intake Total 500 1350 90 Output Total 800 Balance 500 550 90 Lab Results Last 24 Hours: Laboratory Results - last 24 hr 02/25/18 02/25/18 02/26/18 Range/Units 17:02 20:34 05:20 WBC 16.27 H (3.98-10.04) K/mm3 RBC 3.68 L (3.98-5.22) M/mm3 Hgb 10.7 L (11.2-15.7) gm/L Hct 31.9 L (34.1-44.9) % MCV 86.7 (79.4-94.8) fl MCH 29.1 (25.6-32.2) pg MCHC 33.5 (32.2-35.5) g/dl RDW Std Deviation 43.8 (36.4-46.3) fL Plt Count 577 H (182-369) K/mm3 MPV 8.9 L (9.4-12.3) fl Neut % (Auto) 92.7 H (34.0-71.1) % Lymph % (Auto) 3.7 L (19.3-51.7) % Yell % (Auto) 3.1 L (4.7-12.5) % Eos % (Auto) 0 L (0.7-5.8) Baso % (Auto) 0.1 (0.1-1.2) % Neut # (Auto) 15.07 H (1.56-6.13) K/mm3 Lymph # (Auto) 0.61 L (1.18-3.74) K/mm3 Yell # (Auto) 0.51 H (0.24-0.36) K/mm3 Eos # (Auto) 0.00 L (0.04-0.36) K/mm3 Baso # (Auto) 0.01 (0.01-0.08) K/mm3 Manual Slide Review Abnormal smear Sodium (136-145) mEq/L Potassium (3.5-5.1) mEq/L Chloride (98-107) mEq/L Carbon Dioxide (21-32) mEq/L Anion Gap (5-15) BUN (7-18) mg/dL Creatinine (0.55-1.02) mg/dL Est Cr Clr Drug Dosing mL/min Estimated GFR (MDRD) (>60) mL/min BUN/Creatinine Ratio (14-18) Glucose (83-115) mg/dL POC Glucose 297 H 278 H (83-110) mg/dL Lactic Acid (0.4-2.0) mmol/L Calcium (8.5-10.1) mg/dL Magnesium (1.8-2.4) mg/dl C-Reactive Protein (<1.0) mg/dL NT-Pro-B Natriuret Pep (0-450) pg/mL 02/26/18 02/26/18 02/26/18 Range/Units 05:20 06:51 08:07 WBC (3.98-10.04) K/mm3 RBC (3.98-5.22) M/mm3 Hgb (11.2-15.7) gm/L Hct (34.1-44.9) % MCV (79.4-94.8) fl MCH (25.6-32.2) pg MCHC (32.2-35.5) g/dl RDW Std Deviation (36.4-46.3) fL Plt Count (182-369) K/mm3 MPV (9.4-12.3) fl Neut % (Auto) (34.0-71.1) % Lymph % (Auto) (19.3-51.7) % Yell % (Auto) (4.7-12.5) % Eos % (Auto) (0.7-5.8) Baso % (Auto) (0.1-1.2) % Neut # (Auto) (1.56-6.13) K/mm3 Lymph # (Auto) (1.18-3.74) K/mm3 Yell # (Auto) (0.24-0.36) K/mm3 Eos # (Auto) (0.04-0.36) K/mm3 Baso # (Auto) (0.01-0.08) K/mm3 Manual Slide Review Sodium 127 L (136-145) mEq/L Potassium 4.4 (3.5-5.1) mEq/L Chloride 97 L (98-107) mEq/L Carbon Dioxide 25 (21-32) mEq/L Anion Gap 9.4 (5-15) BUN 15 (7-18) mg/dL Creatinine 0.5 L (0.55-1.02) mg/dL Est Cr Clr Drug Dosing 57.63 mL/min Estimated GFR (MDRD) > 60 (>60) mL/min BUN/Creatinine Ratio 30.0 H (14-18) Glucose 200 H (83-115) mg/dL POC Glucose 209 H (83-110) mg/dL Lactic Acid (0.4-2.0) mmol/L Calcium 8.4 L (8.5-10.1) mg/dL Magnesium 1.5 L (1.8-2.4) mg/dl C-Reactive Protein 6.0 H* (<1.0) mg/dL NT-Pro-B Natriuret Pep 28567 H (0-450) pg/mL 04/02/26/18 02/26/18 Range/Units 11:19 11:40 11:40 WBC (3.98-10.04) K/mm3 RBC (3.98-5.22) M/mm3 Hgb (11.2-15.7) gm/L Hct (34.1-44.9) % MCV (79.4-94.8) fl MCH (25.6-32.2) pg MCHC (32.2-35.5) g/dl RDW Std Deviation (36.4-46.3) fL Plt Count (182-369) K/mm3 MPV (9.4-12.3) fl Neut % (Auto) (34.0-71.1) % Lymph % (Auto) (19.3-51.7) % Yell % (Auto) (4.7-12.5) % Eos % (Auto) (0.7-5.8) Baso % (Auto) (0.1-1.2) % Neut # (Auto) (1.56-6.13) K/mm3 Lymph # (Auto) (1.18-3.74) K/mm3 Yell # (Auto) (0.24-0.36) K/mm3 Eos # (Auto) (0.04-0.36) K/mm3 Baso # (Auto) (0.01-0.08) K/mm3 Manual Slide Review Sodium (136-145) mEq/L Potassium (3.5-5.1) mEq/L Chloride (98-107) mEq/L Carbon Dioxide (21-32) mEq/L Anion Gap (5-15) BUN (7-18) mg/dL Creatinine (0.55-1.02) mg/dL Est Cr Clr Drug Dosing mL/min Estimated GFR (MDRD) (>60) mL/min BUN/Creatinine Ratio (14-18) Glucose (83-115) mg/dL POC Glucose 277 H (83-110) mg/dL Lactic Acid 1.4 (0.4-2.0) mmol/L Calcium (8.5-10.1) mg/dL Magnesium (1.8-2.4) mg/dl C-Reactive Protein (<1.0) mg/dL NT-Pro-B Natriuret Pep 86888 H (0-450) pg/mL Uli Results Last 24 Hours: Microbiology 02/23/18 09:05 Aerobic Blood Culture - Preliminary Blood - Venous NO GROWTH AFTER 3 DAYS Anaerobic Blood Culture - Preliminary Staphylococcus Aureus 02/24/18 11:24 Gram Stain - Final Sputum - Expectorated Sputum Culture - Preliminary Staphylococcus Aureus 02/23/18 09:45 Aerobic Blood Culture - Final Blood - Venous - Lab Draw Staphylococcus Aureus Anaerobic Blood Culture - Preliminary Staphylococcus Aureus 02/23/18 09:55 Urine Culture - Final Urine, Catheterized Klebsiella Pneumoniae Enterococcus Faecalis Med Orders - Current: Current Medications Acetaminophen (Tylenol) 650 mg PO Q4H PRN PRN Reason: Pain (Mild 1-3)/fever Hydrocodone Bitart/Acetaminophen ([place] 325-5 Mg) 1 tab PO Q4H PRN PRN Reason: Pain (moderate 4-6) Albuterol/Ipratropium (Duoneb 3.0-0.5 Mg/3 Ml) 3 ml NEB Q4H PRN PRN Reason: Shortness Of Breath/wheezing Bisacodyl (Dulcolax) 5 mg PO DAILY PRN PRN Reason: Constipation Calcium Carbonate/Glycine (Calcium Carbonate) 1,200 mg PO BID [facility] Last Admin: 02/26/18 08:38 Dose: 1,200 mg Dextrose/Water (Dextrose 50% In Water) 50 ml IVPUSH ASDIRECTED PRN PRN Reason: hypoglycemia Docusate Sodium (Colace) 100 mg PO BID PRN PRN Reason: Constipation Enoxaparin Sodium (Lovenox) 30 mg SUBCUT DAILY [facility] Last Admin: 02/26/18 08:44 Dose: 30 mg Famotidine (Pepcid) 20 mg PO DAILY [facility] Last Admin: 02/26/18 08:49 Dose: 20 mg Hydralazine HCl (Apresoline) 10 mg IVPUSH Q6H PRN PRN Reason: Hypertension Levofloxacin/Dextrose 250 mg/ (Premix) 50 mls @ 50 mls/hr IV Q24H [facility] Insulin Aspart (Novolog) 0 unit SUBCUT QIDACANDBED [facility]; Protocol Last Admin: 02/26/18 11:20 Dose: 3 unit Magnesium Oxide (Magnesium Oxide) 400 mg PO BID [facility] Last Admin: 02/26/18 08:52 Dose: 400 mg Megestrol Acetate (Megace 40 Mg/Ml Susp) 400 mg PO DAILY [facility] Last Admin: 02/26/18 08:40 Dose: 400 mg Methylprednisolone Sodium Succinate (Solu-Medrol) 60 mg IVPUSH Q24H [facility] Metoprolol Tartrate (Lopressor) 5 mg IVPUSH Q4H PRN PRN Reason: Tachycardia Ondansetron HCl (Zofran Odt) 4 mg PO Q6H PRN PRN Reason: nausea, able to take PO Ondansetron HCl (Zofran) 4 mg IV Q6H PRN PRN Reason: Nausea/Vomiting Polyethylene Glycol (Miralax) 17 gm PO DAILY PRN PRN Reason: Constipation Saccharomyces Boulardii (Florastor) 250 mg PO BID [facility] Last Admin: 02/26/18 08:52 Dose: 250 mg Senna/Docusate Sodium (Senna Plus) 1 tab PO BID PRN PRN Reason: Constipation Simvastatin (Zocor) 40 mg PO DAILY [facility] Last Admin: 02/26/18 08:50 Dose: 40 mg Sodium Chloride (Saline Flush) 10 ml FLUSH ASDIRECTED PRN PRN Reason: Keep Vein Open Discontinued Medications Benazepril HCl (Lotensin) 5 mg PO DAILY [facility] Last Admin: 02/24/18 08:36 Dose: 5 mg Famotidine (Pepcid) 20 mg PO BID [facility] Last Admin: 02/25/18 20:35 Dose: 20 mg Furosemide (Lasix) 20 mg IVPUSH NOW ONE Stop: 02/23/18 19:05 Last Admin: 02/23/18 19:25 Dose: 20 mg Furosemide (Lasix) 20 mg IVPUSH NOW ONE Stop: 02/24/18 09:38 Last Admin: 02/24/18 10:05 Dose: 20 mg Sodium Chloride (Normal Saline) 1,000 mls @ 250 mls/hr IV ASDIRECTED [facility] Last Admin: 02/23/18 17:50 Dose: 250 mls/hr Ceftriaxone Sodium 2 gm/ (Sodium Chloride) 100 mls @ 100 mls/hr IV Q24H [facility] Last Admin: 02/23/18 10:34 Dose: 100 mls/hr Magnesium Sulfate 2 gm/ Premix 50 mls @ 25 mls/hr IV ONETIME ONE Stop: 02/23/18 14:27 Last Admin: 02/23/18 13:26 Dose: 25 mls/hr Ceftriaxone Sodium 2 gm/ (Sodium Chloride) 100 mls @ 100 mls/hr IV Q24H [facility] Ceftriaxone Sodium 2 gm/ (Sodium Chloride) 100 mls @ 100 mls/hr IV Q24H [facility] Last Admin: 02/23/18 15:42 Dose: Not Given Ceftriaxone Sodium 2 gm/ (Sodium Chloride) 100 mls @ 100 mls/hr IV Q24H [facility] Last Admin: 02/25/18 11:31 Dose: 100 mls/hr Dextrose/Sodium Chloride (Dextrose 5%-Normal Saline) 1,000 mls @ 100 mls/hr IV ASDIRECTED [facility] Stop: 02/24/18 05:14 Last Admin: 02/23/18 19:37 Dose: 100 mls/hr Dextrose/Sodium Chloride (Dextrose 5%-Normal Saline) 1,000 mls @ 75 mls/hr IV ASDIRECTED [facility] Potassium Chloride 10 meq/ (Premix) 100 mls @ 100 mls/hr IV Q1H [facility] Stop: 02/24/18 12:44 Magnesium Sulfate 2 gm/ Premix 50 mls @ 25 mls/hr IV ONETIME ONE Stop: 02/24/18 11:35 Last Admin: 02/24/18 09:43 Dose: Not Given Potassium Chloride 10 meq/ (Premix) 100 mls @ 100 mls/hr IV Q1H [facility] Stop: 02/24/18 15:59 Last Admin: 02/24/18 15:47 Dose: Not Given Magnesium Sulfate 2 gm/ Premix 50 mls @ 25 mls/hr IV ONETIME ONE Stop: 02/24/18 12:59 Last Admin: 02/24/18 11:09 Dose: 25 mls/hr Doxycycline Hyclate 100 mg/ (Sodium Chloride) 100 mls @ 100 mls/hr IV Q12H [facility] Last Admin: 02/25/18 04:18 Dose: 100 mls/hr Levofloxacin/Dextrose 500 mg/ (Premix) 100 mls @ 100 mls/hr IV ONETIME ONE Stop: 02/25/18 22:59 Last Admin: 02/25/18 21:08 Dose: 100 mls/hr Methylprednisolone Sodium Succinate (Solu-Medrol) 60 mg IVPUSH Q12H [facility] Last Admin: 02/25/18 22:31 Dose: 60 mg Morphine Sulfate (Morphine) 0.5 mg IVPUSH Q2H PRN PRN Reason: Pain (severe 7-10) Stop: 02/24/18 12:25 Ondansetron HCl (Zofran) 4 mg IVPUSH ONETIME ONE Stop: 02/23/18 08:33 Last Admin: 02/23/18 08:53 Dose: 4 mg Potassium Chloride (Klor-Con M20) 40 meq PO ONETIME ONE Stop: 02/24/18 09:32 Last Admin: 02/24/18 09:51 Dose: 40 meq Potassium Chloride (Potassium Chloride Solution) 40 meq PO ONETIME ONE Stop: 02/24/18 15:46 Last Admin: 02/24/18 16:02 Dose: 40 meq Vancomycin HCl (Pharmacy To Dose - Vancomycin) 1 dose .XX ASDIRECTED MINERVA - Exam Quality Assessment: DVT Prophylaxis. No: Supplemental Oxygen General: Alert, Oriented, Cooperative, No Acute Distress HEENT: Pupils Equal, Pupils Reactive, EOMI, Mucous Membr. Moist/[place] Neck: Supple Lungs: Normal Respiratory Effort, Decreased Breath Sounds, Rales, Wheezing Cardiovascular: Regular Rate, Regular Rhythm, Murmurs GI/Abdominal Exam: Normal Bowel Sounds, Soft, Non-Tender, No Organomegaly, No Distention, No Abnormal Bruit, No Mass, Pelvis Stable (Female) Exam: Deferred Back Exam: Normal Inspection, Full Range of Motion Extremities: Normal Inspection, Normal Range of Motion, Non-Tender, No Pedal Edema, Normal Capillary Refill Peripheral Pulses: 1+: Posterior Tibial (L), Posterior Tibial (R), Dorsalis Pedis (L), Dorsalis Pedis (R) Skin: Warm, Dry, Intact Neurological: No New Focal Deficit Psy/Mental Status: Alert, Normal Affect, Normal Mood - Problem List & Annotations (1) Bacteremia SNOMED Code(s): 1589489 Code(s): R78.81 - BACTEREMIA Status: Acute Priority: High Current Visit : Yes (2) Congestive heart failure SNOMED Code(s): 20867131 Code(s): I50.9 - HEART FAILURE, UNSPECIFIED Status: Acute Priority: High Current Visit: Yes Qualifiers: Heart failure type: diastolic Heart failure chronicity: acute on chronic Qualified Code(s): I50.33 - Acute on chronic diastolic (congestive) heart failure (3) Dehydration SNOMED Code(s): 13788231 Code(s): E86.0 - DEHYDRATION Status: Acute Priority: High Current Visit : Yes (4) Failure to thrive in adult SNOMED Code(s): 751380933 Code(s): R62.7 - ADULT FAILURE TO THRIVE Status: Acute Priority: High Current Visit: Yes (5) Hypocalcemia SNOMED Code(s): 9930253 Code(s): E83.51 - HYPOCALCEMIA Status: Acute Priority: High Current Visit: Yes (6) Hypokalemia SNOMED Code(s): 78412502 Code(s): E87.6 - HYPOKALEMIA Status: Acute Priority: High Current Visit : Yes (7) Hypomagnesemia SNOMED Code(s): 397959514 Code(s): E83.42 - HYPOMAGNESEMIA Status: Acute Priority: High Current Visit: Yes (8) Leukocytosis SNOMED Code(s): 350699679, 303377659 Code(s): D72.829 - ELEVATED WHITE BLOOD CELL COUNT, UNSPECIFIED Status: Acute Priority: High Current Visit: Yes Qualifiers: Leukocytosis type: unspecified Qualified Code(s): D72.829 - Elevated white blood cell count, unspecified (9) Metabolic acidosis SNOMED Code(s): 92892349 Code(s): E87.2 - ACIDOSIS Status: Acute Priority: High Current Visit: Yes (10) Pulmonary fibrosis determined by high resolution computed tomography SNOMED Code(s): 84824508, 998090875 Code(s): J84.10 - PULMONARY FIBROSIS, UNSPECIFIED Status: Acute Priority : High Current Visit: Yes (11) Upper urinary tract infection SNOMED Code(s): 443287152 Code(s): N39.0 - URINARY TRACT INFECTION, SITE NOT SPECIFIED Status: Acute Priority: High Current Visit: Yes (12) Weakness SNOMED Code(s): 23088861 Code(s): R53.1 - WEAKNESS Status: Acute Priority: High Current Visit: Yes (13) Weight loss, unintentional SNOMED Code(s): 106222245 Code(s): R63.4 - ABNORMAL WEIGHT LOSS Status: Acute Priority: High Current Visit: Yes (14) Nausea SNOMED Code(s): 796793953 Code(s): R11.0 - NAUSEA Status: Resolved Priority: High Current Visit: Yes (15) Pneumonia SNOMED Code(s): 141980077 Code(s): J18.9 - PNEUMONIA, UNSPECIFIED ORGANISM Status: Acute Priority: High Current Visit: Yes Qualifiers: Pneumonia type: due to unspecified organism Laterality: unspecified laterality Lung location: unspecified part of lung Qualified Code(s): J18.9 - Pneumonia, unspecified organism - Problem List Review Problem List Initiated/Reviewed/Updated: Yes - My Orders Last 24 Hours: My Active Orders 02/25/18 21:00 Saccharomyces Boulardii [Florastor] 250 mg PO BID 02/26/18 09:00 Famotidine [Pepcid] 20 mg PO DAILY 02/26/18 12:30 Sodium Chloride 0.9% [Saline Flush] 10 ml FLUSH ASDIRECTED PRN Saline Lock Insert [OM.PC] Routine 02/26/18 22:00 Levofloxacin/Dextrose 5%-Water [Levaquin in D5W 250 MG/50 ML] 250 mg Premix Bag 1 bag IV Q24H 02/27/18 05:11 LACTIC ACID [CHEM] AM 02/27/18 07:45 PRO B-TYPE NATRIUR PEPT,BNPPRO [CHEM] DAILY 02/28/18 05:11 BASIC METABOLIC PANEL,BMP [CHEM] AM C-REACTIVE PROTEIN [CHEM] AM CBC WITH AUTO DIFF [HEME] AM LACTIC ACID [CHEM] AM MAGNESIUM [CHEM] AM 02/28/18 07:45 PRO B-TYPE NATRIUR PEPT,BNPPRO [CHEM] DAILY - Plan Plan:: I/P: Acute: Acute Pneumonia, bacterial -Sputum Culture positive for gram positive cocci, most likely Staph Aureus ( same as blood culture) -Mycoplasma, Influenza, Strep pneumonia negative -WBC 23.94-->17.47-->15.43-->16.27 -CRP 22.2-->20.9-->13.7-->6 -Repeat CXR shows nothing acute -Noted on CT scan (12/24/17) -1. Fairly severe interstitial fibrosis -2. More focal area of density within both posterior lung bases. Without previous study, uncertain if findings represent change from chronic aspiration, pneumonia, or more focal areas of scarring. -3. Nodular density (2.1 cm) within approximate superior segment of the left lower lung with similar differential, although difficult to exclude a neoplastic nodule. -Recommend follow-up CT without contrast in 4 months -Recommend establish with processes chemical design engineer outpatient after discharge -Start Levoquin to cover all organisms -RT/Nebs/IS/FV Bacteremia -Blood culture--> Staph Aureus -Different organism than urine, most likely 2/2 Pneumonia -Add doxycycline for coverage--> D/C, starting Levoquin today to cover all organisms -Repeat blood cultures in 48 hours -Contact precautions UTI -Reports weakness, weight loss, malaise, but no urinary symptoms, no CVA tenderness, no fever -UA unimpressive with no leukocyte esterase or nitrite, 40-50 WBC, 20-30 RBC , but many bacteria -Culture --> positive for Klebseilla Pneumoniae and Enterococcus Faecalis -WBC 23.94-->17.47-->15.43->16.27 -CRP 22.2-->20.9-->13.7-->6 -Lactic acid 1.5-->0.9-->1.4 -IV fluids as ordered -Rocephin 2gm Q24HR--> D/C; Start Levoquin to cover bacteria found in Culture -Blood cultures as above Failure to thrive -Assisted living resident -Has reportedly needed 2 person assistance for last several days -10-12 lb weight loss -Poor oral intake, weakness -PT/OT -SW consult -Hospitalized last year for falls/Bronchitis -Old records indicate chronic unsteady gait -Auto Specialty Services Manager consult Heart failure -No edema, CXR shows no pulmonary congestion, Repeat CXR negative as well -BNP 1971--> 5357-->5267-->15935/93760 (does not fit clinical picture- likely not correct. Will recheck tomorrow) -No weight gain, no pedal edema. -No prior echo on file -Echo obtained - pending -12-lead suggests right atrial and left ventricular hypertrophy -3/6 pansystolic murmur suggesting aortic stenosis Electrolyte abnormalities -Hypokalemia -Hypomagnesemia -Hypocalcemia -2/2 inadequate intake -Supplement -Auto Specialty Services Manager consulted Chronic: HTN Type II DM - SS insulin, QID glucose checks Hypomagnesemia HLD Pulmonary fibrosis Pulmonary nodule --> f/u with processes chemical design engineer, repeat CT w/o contrast in 4 months Plan: Admit to medical floor on telemetry Other orders as indicated above Routine AM labs DVT prophylaxis: LovenoxMANUELA GI prophylaxis: Pepcid RT/PT/OT CM/SW for discharge planning--> PT AND FAMILY HAVE DECIDED ON [facility] FOR PLACEMENT Home medications as ordered Most likely D/C Saturday Code Status: Full code; PCP: Dr. Jalloh at [facility].
[2018-02-26] MEDS: methylPREDNISolone Sodium Succinate 40 MG/1 ML SDV IVPUSH SCH (21:06)
[2018-02-26] MEDS ORDERED: Levofloxacin/Dextrose 5%-Water 250 MG in Premix Bag 1 BAG IV SCH (22:00)
[2018-02-27] MEDS: Saccharomyces Boulardii (Probiotic) 250 MG Cap PO SCH ×2 (08:56→20:23)
[2018-02-27] MEDS: Calcium Carbonate 600 MG Tab PO SCH ×2 (08:56→20:22)
[2018-02-27] MEDS: Simvastatin 40 MG Tab PO SCH (08:56)
[2018-02-27] MEDS: Famotidine 20 MG Tab PO SCH (08:56)
[2018-02-27] MEDS: Magnesium Oxide 400 MG Tab PO SCH ×4 (08:56→20:22)
[2018-02-27] MEDS: Enoxaparin 30 MG/0.3 ML Syringe SUBCUT SCH (08:56)
[2018-02-27] MEDS: Megestrol Susp 40 MG/ML 10 ML UD Cup PO SCH (08:56)
[2018-02-27] MEDS: Insulin Aspart 100 Units/ML 3 ML Pen SUBCUT SCH ×4 (08:57→21:56)
[2018-02-27] MEDS ORDERED: Furosemide 20 MG/2 ML VIAL IVPUSH ONE (09:10)
[2018-02-27] MEDS: Potassium Chloride/Sodium Chloride Tab PO SCH ×2 (09:37→20:22)
--- NOTE | 2018-02-27 10:10 | CR ---
Chest: Two views of the chest were obtained. Comparison: Prior chest x-ray of 02/24/18. Diffuse interstitial change is again seen. No significant change from previous study is seen. Heart size is normal. Upper mediastinum is normal. Bony structures remain unchanged. Impression: 1. Stable chest x-ray from previous study. Nothing acute is appreciated. Diagnostic code #3
--- NOTE | 2018-02-27 14:41 | PCM.PN ---
<Laurel Goodson - Last Filed: 02/27/18 15:04> - General Info Date of Service: 02/27/18 Admission Dx/Problem (Free Text): Admission Diagnosis/Problem Admission Diagnosis/Problem Sepsis due to urinary tract infection Subjective Update: In to see Rosa. She is resting in bed. She has no complaints. She is ambulating with help to the restroom. States she is feeling better today. [place] [address], but clinically she is stable. No edema noted. No weight gain. We will go ahead and give her Lasix today. Her troponin is slightly elevated today as well, at 0.076, but she has no chest pain or any other clinical symptoms. Encouraged ambulation with assistance. No concerns from nursing. Will likely D/C to [facility] tomorrow pending pt disposition and labs. Functional Status: Reports: Pain Controlled, Tolerating Diet, Ambulating, Urinating, Incentive Spirometry - Review of Systems General: Reports: No Symptoms. Denies: Fever, Chills HEENT: Reports: No Symptoms Pulmonary: Reports: Cough, Sputum. Denies: Shortness of Breath, Pleuritic Chest Pain Cardiovascular: Reports: No Symptoms. Denies: Chest Pain, Palpitations, Edema Gastrointestinal: Reports: No Symptoms. Denies: Abdominal Pain, Diarrhea, Nausea, Vomiting Genitourinary: Reports: No Symptoms, Frequency (going hourly) Musculoskeletal: Reports: No Symptoms Skin: Reports: No Symptoms Neurological: Reports: No Symptoms Psychiatric: Reports: No Symptoms - Patient Data Vitals - Most Recent: Last Vital Signs Temp 97.7 F 02/27/18 08:51 Pulse 104 H 02/27/18 08:51 Resp 16 02/27/18 08:51 BP 117/62 02/27/18 08:51 Pulse Ox 97 02/27/18 08:51 Weight - Most Recent: 41.912 kg I&O - Last 24 Hours: Intake & Output 02/26/18 02/27/18 02/27/18 22:59 06:59 14:59 Intake Total 720 450 60 Output Total 100 Balance 620 450 60 Lab Results Last 24 Hours: Laboratory Results - last 24 hr 02/26/18 02/26/18 02/27/18 Range/Units 17:07 20:51 05:46 WBC 14.31 H (3.98-10.04) K/mm3 RBC 3.71 L (3.98-5.22) M/mm3 Hgb 10.8 L (11.2-15.7) gm/L Hct 31.9 L (34.1-44.9) % MCV 86.0 (79.4-94.8) fl MCH 29.1 (25.6-32.2) pg MCHC 33.9 (32.2-35.5) g/dl RDW Std Deviation 43.1 (36.4-46.3) fL Plt Count 533 H (182-369) K/mm3 MPV 8.7 L (9.4-12.3) fl Neut % (Auto) 90.5 H (34.0-71.1) % Lymph % (Auto) 4.7 L (19.3-51.7) % [place] % (Auto) 4.1 L (4.7-12.5) % Eos % (Auto) 0 L (0.7-5.8) Baso % (Auto) 0.1 (0.1-1.2) % Neut # (Auto) 12.96 H (1.56-6.13) K/mm3 Lymph # (Auto) 0.67 L (1.18-3.74) K/mm3 [place] # (Auto) 0.59 H (0.24-0.36) K/mm3 Eos # (Auto) 0.00 L (0.04-0.36) K/mm3 Baso # (Auto) 0.01 (0.01-0.08) K/mm3 Manual Slide Review Abnormal smear Sodium (136-145) mEq/L Potassium (3.5-5.1) mEq/L Chloride (98-107) mEq/L Carbon Dioxide (21-32) mEq/L Anion Gap (5-15) BUN (7-18) mg/dL Creatinine (0.55-1.02) mg/dL Est Cr Clr Drug Dosing mL/min Estimated GFR (MDRD) (>60) mL/min BUN/Creatinine Ratio (14-18) Glucose (83-115) mg/dL POC Glucose 210 H 237 H (83-110) mg/dL Lactic Acid (0.4-2.0) mmol/L Calcium (8.5-10.1) mg/dL Magnesium (1.8-2.4) mg/dl Troponin I (0.00-0.056) ng/mL C-Reactive Protein (<1.0) mg/dL NT-Pro-B Natriuret Pep (0-450) pg/mL 02/27/18 02/27/18 02/27/18 Range/Units 05:46 05:46 05:46 WBC (3.98-10.04) K/mm3 RBC (3.98-5.22) M/mm3 Hgb (11.2-15.7) gm/L Hct (34.1-44.9) % MCV (79.4-94.8) fl MCH (25.6-32.2) pg MCHC (32.2-35.5) g/dl RDW Std Deviation (36.4-46.3) fL Plt Count (182-369) K/mm3 MPV (9.4-12.3) fl Neut % (Auto) (34.0-71.1) % Lymph % (Auto) (19.3-51.7) % [place] % (Auto) (4.7-12.5) % Eos % (Auto) (0.7-5.8) Baso % (Auto) (0.1-1.2) % Neut # (Auto) (1.56-6.13) K/mm3 Lymph # (Auto) (1.18-3.74) K/mm3 [place] # (Auto) (0.24-0.36) K/mm3 Eos # (Auto) (0.04-0.36) K/mm3 Baso # (Auto) (0.01-0.08) K/mm3 Manual Slide Review Sodium 127 L (136-145) mEq/L Potassium 4.7 (3.5-5.1) mEq/L Chloride 97 L (98-107) mEq/L Carbon Dioxide 26 (21-32) mEq/L Anion Gap 8.7 (5-15) BUN 16 (7-18) mg/dL Creatinine 0.4 L (0.55-1.02) mg/dL Est Cr Clr Drug Dosing 70.51 mL/min Estimated GFR (MDRD) > 60 (>60) mL/min BUN/Creatinine Ratio 40.0 H (14-18) Glucose 201 H (83-115) mg/dL POC Glucose (83-110) mg/dL Lactic Acid 1.1 (0.4-2.0) mmol/L Calcium 8.5 (8.5-10.1) mg/dL Magnesium 1.4 L (1.8-2.4) mg/dl Troponin I (0.00-0.056) ng/mL C-Reactive Protein 3.2 H* (<1.0) mg/dL NT-Pro-B Natriuret Pep 93917 H (0-450) pg/mL 02/27/18 02/27/18 02/27/18 Range/Units 05:46 06:29 11:15 WBC (3.98-10.04) K/mm3 RBC (3.98-5.22) M/mm3 Hgb (11.2-15.7) gm/L Hct (34.1-44.9) % MCV (79.4-94.8) fl MCH (25.6-32.2) pg MCHC (32.2-35.5) g/dl RDW Std Deviation (36.4-46.3) fL Plt Count (182-369) K/mm3 MPV (9.4-12.3) fl Neut % (Auto) (34.0-71.1) % Lymph % (Auto) (19.3-51.7) % [place] % (Auto) (4.7-12.5) % Eos % (Auto) (0.7-5.8) Baso % (Auto) (0.1-1.2) % Neut # (Auto) (1.56-6.13) K/mm3 Lymph # (Auto) (1.18-3.74) K/mm3 [place] # (Auto) (0.24-0.36) K/mm3 Eos # (Auto) (0.04-0.36) K/mm3 Baso # (Auto) (0.01-0.08) K/mm3 Manual Slide Review Sodium (136-145) mEq/L Potassium (3.5-5.1) mEq/L Chloride (98-107) mEq/L Carbon Dioxide (21-32) mEq/L Anion Gap (5-15) BUN (7-18) mg/dL Creatinine (0.55-1.02) mg/dL Est Cr Clr Drug Dosing mL/min Estimated GFR (MDRD) (>60) mL/min BUN/Creatinine Ratio (14-18) Glucose (83-115) mg/dL POC Glucose 199 H 272 H (83-110) mg/dL Lactic Acid (0.4-2.0) mmol/L Calcium (8.5-10.1) mg/dL Magnesium (1.8-2.4) mg/dl Troponin I 0.076 H* (0.00-0.056) ng/mL C-Reactive Protein (<1.0) mg/dL NT-Pro-B Natriuret Pep (0-450) pg/mL Uli Results Last 24 Hours: Microbiology 02/24/18 11:24 Gram Stain - Final Sputum - Expectorated Sputum Culture - Final Staphylococcus Aureus 02/23/18 09:05 Aerobic Blood Culture - Preliminary Blood - Venous NO GROWTH AFTER 4 DAYS Anaerobic Blood Culture - Final Staphylococcus Aureus 02/23/18 09:45 Aerobic Blood Culture - Final Blood - Venous - Lab Draw Staphylococcus Aureus Anaerobic Blood Culture - Final Staphylococcus Aureus 02/26/18 05:28 Aerobic Blood Culture - Preliminary Blood - Venous - Lab Draw NO GROWTH AFTER 1 DAY Anaerobic Blood Culture - Preliminary NO GROWTH AFTER 1 DAY 02/26/18 05:20 Aerobic Blood Culture - Preliminary Blood - Venous NO GROWTH AFTER 1 DAY Anaerobic Blood Culture - Preliminary NO GROWTH AFTER 1 DAY Med Orders - Current: Current Medications Acetaminophen (Tylenol) 650 mg PO Q4H PRN PRN Reason: Pain (Mild 1-3)/fever Hydrocodone Bitart/Acetaminophen ([place] 325-5 Mg) 1 tab PO Q4H PRN PRN Reason: Pain (moderate 4-6) Albuterol/Ipratropium (Duoneb 3.0-0.5 Mg/3 Ml) 3 ml NEB Q4H PRN PRN Reason: Shortness Of Breath/wheezing Bisacodyl (Dulcolax) 5 mg PO DAILY PRN PRN Reason: Constipation Calcium Carbonate/Glycine (Calcium Carbonate) 1,200 mg PO BID [facility] Last Admin: 02/27/18 08:56 Dose: 1,200 mg Dextrose/Water (Dextrose 50% In Water) 50 ml IVPUSH ASDIRECTED PRN PRN Reason: hypoglycemia Docusate Sodium (Colace) 100 mg PO BID PRN PRN Reason: Constipation Enoxaparin Sodium (Lovenox) 30 mg SUBCUT DAILY [facility] Last Admin: 02/27/18 08:56 Dose: 30 mg Famotidine (Pepcid) 20 mg PO DAILY [facility] Last Admin: 02/27/18 08:56 Dose: 20 mg Hydralazine HCl (Apresoline) 10 mg IVPUSH Q6H PRN PRN Reason: Hypertension Insulin Aspart (Novolog) 0 unit SUBCUT QIDACANDBED [facility]; Protocol Last Admin: 02/27/18 11:59 Dose: 3 unit Levofloxacin (Levaquin) 250 mg PO Q24H [facility] Magnesium Oxide (Magnesium Oxide) 400 mg PO BID [facility] Last Admin: 02/27/18 08:56 Dose: 400 mg Megestrol Acetate (Megace 40 Mg/Ml Susp) 400 mg PO DAILY [facility] Last Admin: 02/27/18 08:56 Dose: 400 mg Methylprednisolone Sodium Succinate (Solu-Medrol) 60 mg IVPUSH Q24H [facility] Last Admin: 02/26/18 21:06 Dose: 60 mg Metoprolol Tartrate (Lopressor) 5 mg IVPUSH Q4H PRN PRN Reason: Tachycardia Ondansetron HCl (Zofran Odt) 4 mg PO Q6H PRN PRN Reason: nausea, able to take PO Ondansetron HCl (Zofran) 4 mg IV Q6H PRN PRN Reason: Nausea/Vomiting Oral Electrolytes (Thermotabs) 1 each PO BID [facility] Last Admin: 02/27/18 09:37 Dose: 1 each Polyethylene Glycol (Miralax) 17 gm PO DAILY PRN PRN Reason: Constipation Saccharomyces Boulardii (Florastor) 250 mg PO BID [facility] Last Admin: 02/27/18 08:56 Dose: 250 mg Senna/Docusate Sodium (Senna Plus) 1 tab PO BID PRN PRN Reason: Constipation Simvastatin (Zocor) 40 mg PO DAILY [facility] Last Admin: 02/27/18 08:56 Dose: 40 mg Sodium Chloride (Saline Flush) 10 ml FLUSH ASDIRECTED PRN PRN Reason: Keep Vein Open Discontinued Medications Benazepril HCl (Lotensin) 5 mg PO DAILY [facility] Last Admin: 02/24/18 08:36 Dose: 5 mg Famotidine (Pepcid) 20 mg PO BID [facility] Last Admin: 04/17/18 20:35 Dose: 20 mg Furosemide (Lasix) 20 mg IVPUSH NOW ONE Stop: 02/23/18 19:05 Last Admin: 02/23/18 19:25 Dose: 20 mg Furosemide (Lasix) 20 mg IVPUSH NOW ONE Stop: 02/24/18 09:38 Last Admin: 02/24/18 10:05 Dose: 20 mg Furosemide (Lasix) 20 mg IVPUSH NOW ONE Stop: 02/27/18 09:11 Last Admin: 02/27/18 09:37 Dose: 20 mg Sodium Chloride (Normal Saline) 1,000 mls @ 250 mls/hr IV ASDIRECTED [facility] Last Admin: 02/23/18 17:50 Dose: 250 mls/hr Ceftriaxone Sodium 2 gm/ (Sodium Chloride) 100 mls @ 100 mls/hr IV Q24H [facility] Last Admin: 02/23/18 10:34 Dose: 100 mls/hr Magnesium Sulfate 2 gm/ Premix 50 mls @ 25 mls/hr IV ONETIME ONE Stop: 02/23/18 14:27 Last Admin: 02/23/18 13:26 Dose: 25 mls/hr Ceftriaxone Sodium 2 gm/ (Sodium Chloride) 100 mls @ 100 mls/hr IV Q24H [facility] Ceftriaxone Sodium 2 gm/ (Sodium Chloride) 100 mls @ 100 mls/hr IV Q24H [facility] Last Admin: 02/23/18 15:42 Dose: Not Given Ceftriaxone Sodium 2 gm/ (Sodium Chloride) 100 mls @ 100 mls/hr IV Q24H [facility] Last Admin: 02/25/18 11:31 Dose: 100 mls/hr Dextrose/Sodium Chloride (Dextrose 5%-Normal Saline) 1,000 mls @ 100 mls/hr IV ASDIRECTED [facility] Stop: 02/24/18 05:14 Last Admin: 02/23/18 19:37 Dose: 100 mls/hr Dextrose/Sodium Chloride (Dextrose 5%-Normal Saline) 1,000 mls @ 75 mls/hr IV ASDIRECTED [facility] Potassium Chloride 10 meq/ (Premix) 100 mls @ 100 mls/hr IV Q1H [facility] Stop: 02/24/18 12:44 Magnesium Sulfate 2 gm/ Premix 50 mls @ 25 mls/hr IV ONETIME ONE Stop: 02/24/18 11:35 Last Admin: 02/24/18 09:43 Dose: Not Given Potassium Chloride 10 meq/ (Premix) 100 mls @ 100 mls/hr IV Q1H [facility] Stop: 02/24/18 15:59 Last Admin: 02/24/18 15:47 Dose: Not Given Magnesium Sulfate 2 gm/ Premix 50 mls @ 25 mls/hr IV ONETIME ONE Stop: 02/24/18 12:59 Last Admin: 02/24/18 11:09 Dose: 25 mls/hr Doxycycline Hyclate 100 mg/ (Sodium Chloride) 100 mls @ 100 mls/hr IV Q12H [facility] Last Admin: 02/25/18 04:18 Dose: 100 mls/hr Levofloxacin/Dextrose 500 mg/ (Premix) 100 mls @ 100 mls/hr IV ONETIME ONE Stop: 02/25/18 22:59 Last Admin: 02/25/18 21:08 Dose: 100 mls/hr Levofloxacin/Dextrose 250 mg/ (Premix) 50 mls @ 50 mls/hr IV Q24H [facility] Last Admin: 02/26/18 21:05 Dose: 50 mls/hr Magnesium Oxide (Magnesium Oxide) 400 mg PO Q4H [facility] Stop: 02/27/18 13:16 Last Admin: 02/27/18 13:20 Dose: 400 mg Methylprednisolone Sodium Succinate (Solu-Medrol) 60 mg IVPUSH Q12H [facility] Last Admin: 02/25/18 22:31 Dose: 60 mg Morphine Sulfate (Morphine) 0.5 mg IVPUSH Q2H PRN PRN Reason: Pain (severe 7-10) Stop: 02/24/18 12:25 Ondansetron HCl (Zofran) 4 mg IVPUSH ONETIME ONE Stop: 02/23/18 08:33 Last Admin: 02/23/18 08:53 Dose: 4 mg Potassium Chloride (Klor-Con M20) 40 meq PO ONETIME ONE Stop: 02/24/18 09:32 Last Admin: 02/24/18 09:51 Dose: 40 meq Potassium Chloride (Potassium Chloride Solution) 40 meq PO ONETIME ONE Stop: 02/24/18 15:46 Last Admin: 02/24/18 16:02 Dose: 40 meq Vancomycin HCl (Pharmacy To Dose - Vancomycin) 1 dose .XX ASDIRECTED [place] - Exam Quality Assessment: DVT Prophylaxis. No: Supplemental Oxygen, Urine Catheter General: Alert, Oriented, Cooperative, No Acute Distress HEENT: Pupils Equal, Pupils Reactive, EOMI, Mucous Membr. Moist/[place] Neck: Supple Lungs: Normal Respiratory Effort, Decreased Breath Sounds, Rales, Wheezing Cardiovascular: Regular Rate, Regular Rhythm, Murmurs GI/Abdominal Exam: Normal Bowel Sounds, Soft, Non-Tender, No Organomegaly, No Distention, No Abnormal Bruit, No Mass, Pelvis Stable (Female) Exam: Deferred Back Exam: Normal Inspection, Full Range of Motion Extremities: Normal Inspection, Normal Range of Motion, Non-Tender, No Pedal Edema, Normal Capillary Refill Peripheral Pulses: 1+: Posterior Tibial (L), Posterior Tibial (R), Dorsalis Pedis (L), Dorsalis Pedis (R) Skin: Warm, Dry, Intact Neurological: No New Focal Deficit Psy/Mental Status: Alert, Normal Affect, Normal Mood, Depressed - Problem List & Annotations (1) Bacteremia SNOMED Code(s): 0262589 Code(s): R78.81 - BACTEREMIA Status: Acute Priority: High Current Visit : Yes (2) Congestive heart failure SNOMED Code(s): 48726668 Code(s): I50.9 - HEART FAILURE, UNSPECIFIED Status: Acute Priority: High Current Visit: Yes Qualifiers: Heart failure type: diastolic Heart failure chronicity: acute on chronic Qualified Code(s): I50.33 - Acute on chronic diastolic (congestive) heart failure (3) Dehydration SNOMED Code(s): 59592267 Code(s): E86.0 - DEHYDRATION Status: Acute Priority: High Current Visit : Yes (4) Failure to thrive in adult SNOMED Code(s): 902555584 Code(s): R62.7 - ADULT FAILURE TO THRIVE Status: Acute Priority: High Current Visit: Yes (5) Hypocalcemia SNOMED Code(s): 9350859 Code(s): E83.51 - HYPOCALCEMIA Status: Acute Priority: High Current Visit: Yes (6) Hypokalemia SNOMED Code(s): 29772782 Code(s): E87.6 - HYPOKALEMIA Status: Acute Priority: High Current Visit : Yes (7) Hypomagnesemia SNOMED Code(s): 275786900 Code(s): E83.42 - HYPOMAGNESEMIA Status: Acute Priority: High Current Visit: Yes (8) Leukocytosis SNOMED Code(s): 888858600, 227025666 Code(s): D72.829 - ELEVATED WHITE BLOOD CELL COUNT, UNSPECIFIED Status: Acute Priority: High Current Visit: Yes Qualifiers: Leukocytosis type: unspecified Qualified Code(s): D72.829 - Elevated white blood cell count, unspecified (9) Metabolic acidosis SNOMED Code(s): 06391691 Code(s): E87.2 - ACIDOSIS Status: Acute Priority: High Current Visit: Yes (10) Pulmonary fibrosis determined by high resolution computed tomography SNOMED Code(s): 30631489, 156432622 Code(s): J84.10 - PULMONARY FIBROSIS, UNSPECIFIED Status: Acute Priority : High Current Visit: Yes (11) Upper urinary tract infection SNOMED Code(s): 126865939 Code(s): N39.0 - URINARY TRACT INFECTION, SITE NOT SPECIFIED Status: Acute Priority: High Current Visit: Yes (12) Weakness SNOMED Code(s): 05234263 Code(s): R53.1 - WEAKNESS Status: Acute Priority: High Current Visit: Yes (13) Weight loss, unintentional SNOMED Code(s): 925478327 Code(s): R63.4 - ABNORMAL WEIGHT LOSS Status: Acute Priority: High Current Visit: Yes (14) Nausea SNOMED Code(s): 357031088 Code(s): R11.0 - NAUSEA Status: Resolved Priority: High Current Visit: Yes (15) Pneumonia SNOMED Code(s): 927334067 Code(s): J18.9 - PNEUMONIA, UNSPECIFIED ORGANISM Status: Acute Priority: High Current Visit: Yes Qualifiers: Pneumonia type: due to unspecified organism Laterality: unspecified laterality Lung location: unspecified part of lung Qualified Code(s): J18.9 - Pneumonia, unspecified organism - Problem List Review Problem List Initiated/Reviewed/Updated: Yes - My Orders Last 24 Hours: My Active Orders 02/27/18 09:15 Potassium Chloride/NaCl [Thermotabs] 1 each PO BID 02/28/18 05:11 BASIC METABOLIC PANEL,BMP [CHEM] AM C-REACTIVE PROTEIN [CHEM] AM CBC WITH AUTO DIFF [HEME] AM LACTIC ACID [CHEM] AM MAGNESIUM [CHEM] AM 02/28/18 07:45 PRO B-TYPE NATRIUR PEPT,BNPPRO [CHEM] DAILY - Plan Plan:: I/P: Acute: Acute Pneumonia, bacterial -Sputum Culture positive for gram positive cocci, most likely Staph Aureus ( same as blood culture) -Mycoplasma, Influenza, Strep pneumonia negative -WBC 23.94-->17.47-->15.43-->16.27-->14.31 -CRP 22.2-->20.9-->13.7-->6-->3.2 -Repeat CXR shows nothing acute -Noted on CT scan (12/24/17) -1. Fairly severe interstitial fibrosis -2. More focal area of density within both posterior lung bases. Without previous study, uncertain if findings represent change from chronic aspiration, pneumonia, or more focal areas of scarring. -3. Nodular density (2.1 cm) within approximate superior segment of the left lower lung with similar differential, although difficult to exclude a neoplastic nodule. -Recommend follow-up CT without contrast in 4 months -Recommend establish with display fabrication supervisor outpatient after discharge -Start Levoquin to cover all organisms -RT/Nebs/IS/FV Bacteremia -Blood culture--> Staph Aureus -Different organism than urine, most likely 2/2 Pneumonia -Add doxycycline for coverage--> D/C, starting Levoquin today to cover all organisms -Repeat blood cultures in 48 hours -Contact precautions UTI -Reports weakness, weight loss, malaise, but no urinary symptoms, no CVA tenderness, no fever -UA unimpressive with no leukocyte esterase or nitrite, 40-50 WBC, 20-30 RBC , but many bacteria -Culture --> positive for Klebseilla Pneumoniae and Enterococcus Faecalis -WBC 23.94-->17.47-->15.43->16.27-->14.31 -CRP 22.2-->20.9-->13.7--> 6-->3.2 -Lactic acid 1.5-->0.9-->1.4-->1.1 -IV fluids as ordered -Rocephin 2gm Q24HR--> D/C; Start Levoquin to cover bacteria found in Culture -Blood cultures as above Failure to thrive -Assisted living resident -Has reportedly needed 2 person assistance for last several days -10-12 lb weight loss -Poor oral intake, weakness -PT/OT -SW consult -Hospitalized last year for falls/Bronchitis -Old records indicate chronic unsteady gait -Meat Cutting Teacher consult Heart failure/Type II [place] -No edema, CXR shows no pulmonary congestion, Repeat CXR negative as well -BNP 1972--> 5357-->5267-->77362-->78424-->55079 -Troponin 0.025-->0.076, most likely Type II [place] -Clinically unremarkable, No weight gain, no pedal edema, no chest pain. -No prior echo on file -Echo (02/24/18)--> LVEF 65-70%, Severe Aortic Stenosis, Moderate AVR/TVR, Mild MR, Impaired relaxation (Grade I) patter of LV diastolic filling, RV systolic pressure mod-severely elevated -12-lead suggests right atrial and left ventricular hypertrophy -3/6 pansystolic murmur suggesting aortic stenosis Electrolyte abnormalities -Hypokalemia -Hypomagnesemia -Hypocalcemia -2/2 inadequate intake -Supplement -Meat Cutting Teacher consulted Chronic: HTN Type II DM - SS insulin, QID glucose checks Hypomagnesemia HLD Pulmonary fibrosis Pulmonary nodule --> f/u with display fabrication supervisor, repeat CT w/o contrast in 4 months Plan: Admit to medical floor on telemetry Other orders as indicated above Routine AM labs DVT prophylaxis: Lovenox, MANUELA hose GI prophylaxis: Pepcid RT/PT/OT CM/SW for discharge planning--> PT AND FAMILY HAVE DECIDED ON [facility] FOR PLACEMENT; Dr. Stone is new PCP Home medications as ordered Most likely D/C Saturday Code Status: Full code; PCP: Dr. Stone <Mahamed Trent - Last Filed: 02/27/18 19:00> - Patient Data Vitals - Most Recent: Last Vital Signs Temp 37.0 C 02/27/18 15:16 Pulse 89 02/27/18 15:16 Resp 18 02/27/18 15:16 BP 102/67 02/27/18 15:54 Pulse Ox 98 02/27/18 15:16 I&O - Last 24 Hours: Intake & Output 04/02/27/18 02/27/18 06:59 14:59 22:59 Intake Total 450 180 800 Balance 450 180 800 Lab Results Last 24 Hours: Laboratory Results - last 24 hr 02/26/18 02/27/18 02/27/18 Range/Units 20:51 05:46 05:46 WBC 14.31 H (3.98-10.04) K/mm3 RBC 3.71 L (3.98-5.22) M/mm3 Hgb 10.8 L (11.2-15.7) gm/L Hct 31.9 L (34.1-44.9) % MCV 86.0 (79.4-94.8) fl MCH 29.1 (25.6-32.2) pg MCHC 33.9 (32.2-35.5) g/dl RDW Std Deviation 43.1 (36.4-46.3) fL Plt Count 533 H (182-369) K/mm3 MPV 8.7 L (9.4-12.3) fl Neut % (Auto) 90.5 H (34.0-71.1) % Lymph % (Auto) 4.7 L (19.3-51.7) % [place] % (Auto) 4.1 L (4.7-12.5) % Eos % (Auto) 0 L (0.7-5.8) Baso % (Auto) 0.1 (0.1-1.2) % Neut # (Auto) 12.96 H (1.56-6.13) K/mm3 Lymph # (Auto) 0.67 L (1.18-3.74) K/mm3 [place] # (Auto) 0.59 H (0.24-0.36) K/mm3 Eos # (Auto) 0.00 L (0.04-0.36) K/mm3 Baso # (Auto) 0.01 (0.01-0.08) K/mm3 Manual Slide Review Abnormal smear Sodium 127 L (136-145) mEq/L Potassium 4.7 (3.5-5.1) mEq/L Chloride 97 L (98-107) mEq/L Carbon Dioxide 26 (21-32) mEq/L Anion Gap 8.7 (5-15) BUN 16 (7-18) mg/dL Creatinine 0.4 L (0.55-1.02) mg/dL Est Cr Clr Drug Dosing 70.51 mL/min Estimated GFR (MDRD) > 60 (>60) mL/min BUN/Creatinine Ratio 40.0 H (14-18) Glucose 201 H (83-115) mg/dL POC Glucose 237 H (83-110) mg/dL Lactic Acid (0.4-2.0) mmol/L Calcium 8.5 (8.5-10.1) mg/dL Magnesium 1.4 L (1.8-2.4) mg/dl Troponin I (0.00-0.056) ng/mL C-Reactive Protein 3.2 H* (<1.0) mg/dL NT-Pro-B Natriuret Pep (0-450) pg/mL 02/27/18 02/27/18 02/27/18 Range/Units 05:46 05:46 05:46 WBC (3.98-10.04) K/mm3 RBC (3.98-5.22) M/mm3 Hgb (11.2-15.7) gm/L Hct (34.1-44.9) % MCV (79.4-94.8) fl MCH (25.6-32.2) pg MCHC (32.2-35.5) g/dl RDW Std Deviation (36.4-46.3) fL Plt Count (182-369) K/mm3 MPV (9.4-12.3) fl Neut % (Auto) (34.0-71.1) % Lymph % (Auto) (19.3-51.7) % [place] % (Auto) (4.7-12.5) % Eos % (Auto) (0.7-5.8) Baso % (Auto) (0.1-1.2) % Neut # (Auto) (1.56-6.13) K/mm3 Lymph # (Auto) (1.18-3.74) K/mm3 [place] # (Auto) (0.24-0.36) K/mm3 Eos # (Auto) (0.04-0.36) K/mm3 Baso # (Auto) (0.01-0.08) K/mm3 Manual Slide Review Sodium (136-145) mEq/L Potassium (3.5-5.1) mEq/L Chloride (98-107) mEq/L Carbon Dioxide (21-32) mEq/L Anion Gap (5-15) BUN (7-18) mg/dL Creatinine (0.55-1.02) mg/dL Est Cr Clr Drug Dosing mL/min Estimated GFR (MDRD) (>60) mL/min BUN/Creatinine Ratio (14-18) Glucose (83-115) mg/dL POC Glucose (83-110) mg/dL Lactic Acid 1.1 (0.4-2.0) mmol/L Calcium (8.5-10.1) mg/dL Magnesium (1.8-2.4) mg/dl Troponin I 0.076 H* (0.00-0.056) ng/mL C-Reactive Protein (<1.0) mg/dL NT-Pro-B Natriuret Pep 23667 H (0-450) pg/mL 02/27/18 02/27/18 02/27/18 Range/Units 06:29 11:15 17:15 WBC (3.98-10.04) K/mm3 RBC (3.98-5.22) M/mm3 Hgb (11.2-15.7) gm/L Hct (34.1-44.9) % MCV (79.4-94.8) fl MCH (25.6-32.2) pg MCHC (32.2-35.5) g/dl RDW Std Deviation (36.4-46.3) fL Plt Count (182-369) K/mm3 MPV (9.4-12.3) fl Neut % (Auto) (34.0-71.1) % Lymph % (Auto) (19.3-51.7) % [place] % (Auto) (4.7-12.5) % Eos % (Auto) (0.7-5.8) Baso % (Auto) (0.1-1.2) % Neut # (Auto) (1.56-6.13) K/mm3 Lymph # (Auto) (1.18-3.74) K/mm3 [place] # (Auto) (0.24-0.36) K/mm3 Eos # (Auto) (0.04-0.36) K/mm3 Baso # (Auto) (0.01-0.08) K/mm3 Manual Slide Review Sodium (136-145) mEq/L Potassium (3.5-5.1) mEq/L Chloride (98-107) mEq/L Carbon Dioxide (21-32) mEq/L Anion Gap (5-15) BUN (7-18) mg/dL Creatinine (0.55-1.02) mg/dL Est Cr Clr Drug Dosing mL/min Estimated GFR (MDRD) (>60) mL/min BUN/Creatinine Ratio (14-18) Glucose (83-115) mg/dL POC Glucose 199 H 272 H 238 H (83-110) mg/dL Lactic Acid (0.4-2.0) mmol/L Calcium (8.5-10.1) mg/dL Magnesium (1.8-2.4) mg/dl Troponin I (0.00-0.056) ng/mL C-Reactive Protein (<1.0) mg/dL NT-Pro-B Natriuret Pep (0-450) pg/mL [place] Results Last 24 Hours: Microbiology 02/24/18 11:24 Gram Stain - Final Sputum - Expectorated Sputum Culture - Final Staphylococcus Aureus 02/23/18 09:05 Aerobic Blood Culture - Preliminary Blood - Venous NO GROWTH AFTER 4 DAYS Anaerobic Blood Culture - Final Staphylococcus Aureus 02/23/18 09:45 Aerobic Blood Culture - Final Blood - Venous - Lab Draw Staphylococcus Aureus Anaerobic Blood Culture - Final Staphylococcus Aureus 02/26/18 05:28 Aerobic Blood Culture - Preliminary Blood - Venous - Lab Draw NO GROWTH AFTER 1 DAY Anaerobic Blood Culture - Preliminary NO GROWTH AFTER 1 DAY 02/26/18 05:20 Aerobic Blood Culture - Preliminary Blood - Venous NO GROWTH AFTER 1 DAY Anaerobic Blood Culture - Preliminary NO GROWTH AFTER 1 DAY Med Orders - Current: Current Medications Acetaminophen (Tylenol) 650 mg PO Q4H PRN PRN Reason: Pain (Mild 1-3)/fever Hydrocodone Bitart/Acetaminophen ([place] 325-5 Mg) 1 tab PO Q4H PRN PRN Reason: Pain (moderate 4-6) Albuterol/Ipratropium (Duoneb 3.0-0.5 Mg/3 Ml) 3 ml NEB Q4H PRN PRN Reason: Shortness Of Breath/wheezing Bisacodyl (Dulcolax) 5 mg PO DAILY PRN PRN Reason: Constipation Calcium Carbonate/Glycine (Calcium Carbonate) 1,200 mg PO BID [facility] Last Admin: 02/27/18 08:56 Dose: 1,200 mg Dextrose/Water (Dextrose 50% In Water) 50 ml IVPUSH ASDIRECTED PRN PRN Reason: hypoglycemia Docusate Sodium (Colace) 100 mg PO BID PRN PRN Reason: Constipation Enoxaparin Sodium (Lovenox) 30 mg SUBCUT DAILY [facility] Last Admin: 02/27/18 08:56 Dose: 30 mg Famotidine (Pepcid) 20 mg PO DAILY [facility] Last Admin: 02/27/18 08:56 Dose: 20 mg Hydralazine HCl (Apresoline) 10 mg IVPUSH Q6H PRN PRN Reason: Hypertension Insulin Aspart (Novolog) 0 unit SUBCUT QIDACANDBED [facility]; Protocol Last Admin: 02/27/18 17:39 Dose: 2 unit Levofloxacin (Levaquin) 250 mg PO Q24H [facility] Magnesium Oxide (Magnesium Oxide) 400 mg PO BID [facility] Last Admin: 02/27/18 08:56 Dose: 400 mg Megestrol Acetate (Megace 40 Mg/Ml Susp) 400 mg PO DAILY [facility] Last Admin: 02/27/18 08:56 Dose: 400 mg Methylprednisolone Sodium Succinate (Solu-Medrol) 60 mg IVPUSH Q24H [facility] Last Admin: 02/26/18 21:06 Dose: 60 mg Metoprolol Tartrate (Lopressor) 5 mg IVPUSH Q4H PRN PRN Reason: Tachycardia Ondansetron HCl (Zofran Odt) 4 mg PO Q6H PRN PRN Reason: nausea, able to take PO Ondansetron HCl (Zofran) 4 mg IV Q6H PRN PRN Reason: Nausea/Vomiting Oral Electrolytes (Thermotabs) 1 each PO BID [facility] Last Admin: 02/27/18 09:37 Dose: 1 each Polyethylene Glycol (Miralax) 17 gm PO DAILY PRN PRN Reason: Constipation Saccharomyces Boulardii (Florastor) 250 mg PO BID [facility] Last Admin: 02/27/18 08:56 Dose: 250 mg Senna/Docusate Sodium (Senna Plus) 1 tab PO BID PRN PRN Reason: Constipation Simvastatin (Zocor) 40 mg PO DAILY [facility] Last Admin: 02/27/18 08:56 Dose: 40 mg Sodium Chloride (Saline Flush) 10 ml FLUSH ASDIRECTED PRN PRN Reason: Keep Vein Open Discontinued Medications Benazepril HCl (Lotensin) 5 mg PO DAILY [facility] Last Admin: 02/24/18 08:36 Dose: 5 mg Famotidine (Pepcid) 20 mg PO BID [facility] Last Admin: 02/25/18 20:35 Dose: 20 mg Furosemide (Lasix) 20 mg IVPUSH NOW ONE Stop: 02/23/18 19:05 Last Admin: 02/23/18 19:25 Dose: 20 mg Furosemide (Lasix) 20 mg IVPUSH NOW ONE Stop: 02/24/18 09:38 Last Admin: 02/24/18 10:05 Dose: 20 mg Furosemide (Lasix) 20 mg IVPUSH NOW ONE Stop: 02/27/18 09:11 Last Admin: 02/27/18 09:37 Dose: 20 mg Sodium Chloride (Normal Saline) 1,000 mls @ 250 mls/hr IV ASDIRECTED [facility] Last Admin: 02/23/18 17:50 Dose: 250 mls/hr Ceftriaxone Sodium 2 gm/ (Sodium Chloride) 100 mls @ 100 mls/hr IV Q24H [facility] Last Admin: 02/23/18 10:34 Dose: 100 mls/hr Magnesium Sulfate 2 gm/ Premix 50 mls @ 25 mls/hr IV ONETIME ONE Stop: 02/23/18 14:27 Last Admin: 02/23/18 13:26 Dose: 25 mls/hr Ceftriaxone Sodium 2 gm/ (Sodium Chloride) 100 mls @ 100 mls/hr IV Q24H [facility] Ceftriaxone Sodium 2 gm/ (Sodium Chloride) 100 mls @ 100 mls/hr IV Q24H [facility] Last Admin: 02/23/18 15:42 Dose: Not Given Ceftriaxone Sodium 2 gm/ (Sodium Chloride) 100 mls @ 100 mls/hr IV Q24H [facility] Last Admin: 02/25/18 11:31 Dose: 100 mls/hr Dextrose/Sodium Chloride (Dextrose 5%-Normal Saline) 1,000 mls @ 100 mls/hr IV ASDIRECTED [facility] Stop: 02/24/18 05:14 Last Admin: 02/23/18 19:37 Dose: 100 mls/hr Dextrose/Sodium Chloride (Dextrose 5%-Normal Saline) 1,000 mls @ 75 mls/hr IV ASDIRECTED [facility] Potassium Chloride 10 meq/ (Premix) 100 mls @ 100 mls/hr IV Q1H [facility] Stop: 02/24/18 12:44 Magnesium Sulfate 2 gm/ Premix 50 mls @ 25 mls/hr IV ONETIME ONE Stop: 02/24/18 11:35 Last Admin: 02/24/18 09:43 Dose: Not Given Potassium Chloride 10 meq/ (Premix) 100 mls @ 100 mls/hr IV Q1H [facility] Stop: 02/24/18 15:59 Last Admin: 02/24/18 15:47 Dose: Not Given Magnesium Sulfate 2 gm/ Premix 50 mls @ 25 mls/hr IV ONETIME ONE Stop: 02/24/18 12:59 Last Admin: 02/24/18 11:09 Dose: 25 mls/hr Doxycycline Hyclate 100 mg/ (Sodium Chloride) 100 mls @ 100 mls/hr IV Q12H [facility] Last Admin: 02/25/18 04:18 Dose: 100 mls/hr Levofloxacin/Dextrose 500 mg/ (Premix) 100 mls @ 100 mls/hr IV ONETIME ONE Stop: 02/25/18 22:59 Last Admin: 02/25/18 21:08 Dose: 100 mls/hr Levofloxacin/Dextrose 250 mg/ (Premix) 50 mls @ 50 mls/hr IV Q24H [facility] Last Admin: 02/26/18 21:05 Dose: 50 mls/hr Magnesium Oxide (Magnesium Oxide) 400 mg PO Q4H [facility] Stop: 02/27/18 13:16 Last Admin: 02/27/18 13:20 Dose: 400 mg Methylprednisolone Sodium Succinate (Solu-Medrol) 60 mg IVPUSH Q12H [facility] Last Admin: 02/25/18 22:31 Dose: 60 mg Morphine Sulfate (Morphine) 0.5 mg IVPUSH Q2H PRN PRN Reason: Pain (severe 7-10) Stop: 02/24/18 12:25 Ondansetron HCl (Zofran) 4 mg IVPUSH ONETIME ONE Stop: 02/23/18 08:33 Last Admin: 02/23/18 08:53 Dose: 4 mg Potassium Chloride (Klor-Con M20) 40 meq PO ONETIME ONE Stop: 02/24/18 09:32 Last Admin: 02/24/18 09:51 Dose: 40 meq Potassium Chloride (Potassium Chloride Solution) 40 meq PO ONETIME ONE Stop: 02/24/18 15:46 Last Admin: 02/24/18 16:02 Dose: 40 meq Vancomycin HCl (Pharmacy To Dose - Vancomycin) 1 dose .XX ASDIRECTED [facility]
[2018-02-27] MEDS: Levofloxacin 250 MG Tab PO SCH (20:22)
[2018-02-27] MEDS: methylPREDNISolone Sodium Succinate 40 MG/1 ML SDV IVPUSH SCH (21:57)
[2018-02-28] MEDS ORDERED: Magnesium Oxide 400 MG Tab PO ONE (08:20)
[2018-02-28] MEDS: Calcium Carbonate 600 MG Tab PO SCH ×2 (08:21→21:46)
[2018-02-28] MEDS: Megestrol Susp 40 MG/ML 10 ML UD Cup PO SCH (08:22)
[2018-02-28] MEDS: Famotidine 20 MG Tab PO SCH (08:22)
[2018-02-28] MEDS: Saccharomyces Boulardii (Probiotic) 250 MG Cap PO SCH ×2 (08:22→21:46)
[2018-02-28] MEDS: Potassium Chloride/Sodium Chloride Tab PO SCH ×2 (08:22→21:46)
[2018-02-28] MEDS: Enoxaparin 30 MG/0.3 ML Syringe SUBCUT SCH (08:22)
[2018-02-28] MEDS: Simvastatin 40 MG Tab PO SCH (08:22)
[2018-02-28] MEDS: Insulin Aspart 100 Units/ML 3 ML Pen SUBCUT SCH ×4 (08:23→21:49)
[2018-02-28] MEDS: Magnesium Oxide 400 MG Tab PO SCH ×2 (08:23→21:46)
[2018-02-28] MEDS: Furosemide 20 MG/2 ML VIAL IVPUSH SCH (09:22)
--- NOTE | 2018-02-28 09:49 | PCM.PN ---
- General Info Date of Service: 02/28/18 Admission Dx/Problem (Free Text): Admission Diagnosis/Problem Admission Diagnosis/Problem Sepsis due to urinary tract infection Subjective Update: In to see Rosa. She is resting in bed. She has no complaints. She seems to be somewhat depressed about going to [facility] and we have discussed taking Zoloft for the short term. I explained it is not fast-acting, but may help during this transition to [facility] and she can be weened off eventually. She and her family both agree with this treatment plan. She is ambulating with help to the restroom. States she is feeling better today. [place] [address], but clinically she is stable. No edema noted. No weight gain. We will go ahead and give her Lasix 20mg twice today and one dose tomorrow and continue following her BNP. Her troponin is also still slightly elevated today but has gone down to 0.060, but she has no chest pain or any other clinical symptoms. Encouraged ambulation with assistance. No concerns from nursing. Due to increased BNP, Lactic acid and WBC increase, will most likely D/C to [facility] Saturday pending pt disposition and labs. Functional Status: Reports: Pain Controlled, Tolerating Diet, Ambulating, Urinating, Incentive Spirometry - Review of Systems General: Reports: Weakness, Malaise. Denies: Fever, Chills HEENT: Reports: No Symptoms Pulmonary: Reports: Cough, Sputum. Denies: Shortness of Breath, Pleuritic Chest Pain Cardiovascular: Reports: No Symptoms. Denies: Chest Pain, Palpitations, Dyspnea on Exertion Gastrointestinal: Reports: No Symptoms. Denies: Diarrhea, Nausea, Vomiting Genitourinary: Reports: No Symptoms. Denies: Dysuria, Frequency, Burning, Pain , Urgency Musculoskeletal: Reports: No Symptoms Skin: Reports: No Symptoms Neurological: Reports: No Symptoms Psychiatric: Reports: Depression, Agitation - Patient Data Vitals - Most Recent: Last Vital Signs Temp 98.4 F 02/28/18 07:48 Pulse 92 02/28/18 07:48 Resp 20 02/28/18 07:48 BP 138/84 02/28/18 07:48 Pulse Ox 94 L 02/28/18 07:48 Weight - Most Recent: 94 lb 6.4 oz I&O - Last 24 Hours: Intake & Output 02/27/18 02/28/18 02/28/18 22:59 06:59 14:59 Intake Total 800 450 Output Total 200 Balance 800 250 Lab Results Last 24 Hours: Laboratory Results - last 24 hr 02/27/18 02/27/18 02/27/18 Range/Units 05:46 06:29 11:15 WBC (3.98-10.04) K/mm3 RBC (3.98-5.22) M/mm3 Hgb (11.2-15.7) gm/L Hct (34.1-44.9) % MCV (79.4-94.8) fl MCH (25.6-32.2) pg MCHC (32.2-35.5) g/dl RDW Std Deviation (36.4-46.3) fL Plt Count (182-369) K/mm3 MPV (9.4-12.3) fl Neut % (Auto) (34.0-71.1) % Lymph % (Auto) (19.3-51.7) % Glenn % (Auto) (4.7-12.5) % Eos % (Auto) (0.7-5.8) Baso % (Auto) (0.1-1.2) % Neut # (Auto) (1.56-6.13) K/mm3 Lymph # (Auto) (1.18-3.74) K/mm3 Glenn # (Auto) (0.24-0.36) K/mm3 Eos # (Auto) (0.04-0.36) K/mm3 Baso # (Auto) (0.01-0.08) K/mm3 Manual Slide Review Sodium (136-145) mEq/L Potassium (3.5-5.1) mEq/L Chloride (98-107) mEq/L Carbon Dioxide (21-32) mEq/L Anion Gap (5-15) BUN (7-18) mg/dL Creatinine (0.55-1.02) mg/dL Est Cr Clr Drug Dosing mL/min Estimated GFR (MDRD) (>60) mL/min BUN/Creatinine Ratio (14-18) Glucose (83-115) mg/dL POC Glucose 199 H 272 H (83-110) mg/dL Lactic Acid (0.4-2.0) mmol/L Calcium (8.5-10.1) mg/dL Magnesium (1.8-2.4) mg/dl Troponin I 0.076 H* (0.00-0.056) ng/mL C-Reactive Protein (<1.0) mg/dL NT-Pro-B Natriuret Pep (0-450) pg/mL 02/27/18 02/27/18 02/28/18 Range/Units 17:15 20:35 05:46 WBC (3.98-10.04) K/mm3 RBC (3.98-5.22) M/mm3 Hgb (11.2-15.7) gm/L Hct (34.1-44.9) % MCV (79.4-94.8) fl MCH (25.6-32.2) pg MCHC (32.2-35.5) g/dl RDW Std Deviation (36.4-46.3) fL Plt Count (182-369) K/mm3 MPV (9.4-12.3) fl Neut % (Auto) (34.0-71.1) % Lymph % (Auto) (19.3-51.7) % Glenn % (Auto) (4.7-12.5) % Eos % (Auto) (0.7-5.8) Baso % (Auto) (0.1-1.2) % Neut # (Auto) (1.56-6.13) K/mm3 Lymph # (Auto) (1.18-3.74) K/mm3 Glenn # (Auto) (0.24-0.36) K/mm3 Eos # (Auto) (0.04-0.36) K/mm3 Baso # (Auto) (0.01-0.08) K/mm3 Manual Slide Review Sodium (136-145) mEq/L Potassium (3.5-5.1) mEq/L Chloride (98-107) mEq/L Carbon Dioxide (21-32) mEq/L Anion Gap (5-15) BUN (7-18) mg/dL Creatinine (0.55-1.02) mg/dL Est Cr Clr Drug Dosing mL/min Estimated GFR (MDRD) (>60) mL/min BUN/Creatinine Ratio (14-18) Glucose (83-115) mg/dL POC Glucose 238 H 245 H (83-110) mg/dL Lactic Acid (0.4-2.0) mmol/L Calcium (8.5-10.1) mg/dL Magnesium (1.8-2.4) mg/dl Troponin I (0.00-0.056) ng/mL C-Reactive Protein (<1.0) mg/dL NT-Pro-B Natriuret Pep 70968 H (0-450) pg/mL 02/28/18 02/28/18 02/28/18 Range/Units 05:46 05:46 05:46 WBC 15.58 H (3.98-10.04) K/mm3 RBC 4.03 (3.98-5.22) M/mm3 Hgb 11.6 (11.2-15.7) gm/L Hct 34.5 (34.1-44.9) % MCV 85.6 (79.4-94.8) fl MCH 28.8 (25.6-32.2) pg MCHC 33.6 (32.2-35.5) g/dl RDW Std Deviation 42.9 (36.4-46.3) fL Plt Count 527 H (182-369) K/mm3 MPV 8.9 L (9.4-12.3) fl Neut % (Auto) 89.0 H (34.0-71.1) % Lymph % (Auto) 6.8 L (19.3-51.7) % Glenn % (Auto) 3.4 L (4.7-12.5) % Eos % (Auto) 0 L (0.7-5.8) Baso % (Auto) 0.1 (0.1-1.2) % Neut # (Auto) 13.87 H (1.56-6.13) K/mm3 Lymph # (Auto) 1.06 L (1.18-3.74) K/mm3 Glenn # (Auto) 0.53 H (0.24-0.36) K/mm3 Eos # (Auto) 0.00 L (0.04-0.36) K/mm3 Baso # (Auto) 0.01 (0.01-0.08) K/mm3 Manual Slide Review Abnormal smear Sodium 127 L (136-145) mEq/L Potassium 4.7 (3.5-5.1) mEq/L Chloride 94 L (98-107) mEq/L Carbon Dioxide 27 (21-32) mEq/L Anion Gap 10.7 (5-15) BUN 15 (7-18) mg/dL Creatinine 0.5 L (0.55-1.02) mg/dL Est Cr Clr Drug Dosing 57.63 mL/min Estimated GFR (MDRD) > 60 (>60) mL/min BUN/Creatinine Ratio 30.0 H (14-18) Glucose 225 H (83-115) mg/dL POC Glucose (83-110) mg/dL Lactic Acid 2.1 H (0.4-2.0) mmol/L Calcium 8.6 (8.5-10.1) mg/dL Magnesium 1.5 L (1.8-2.4) mg/dl Troponin I (0.00-0.056) ng/mL C-Reactive Protein 2.4 H* (<1.0) mg/dL NT-Pro-B Natriuret Pep (0-450) pg/mL 02/28/18 02/28/18 Range/Units 05:46 06:06 WBC (3.98-10.04) K/mm3 RBC (3.98-5.22) M/mm3 Hgb (11.2-15.7) gm/L Hct (34.1-44.9) % MCV (79.4-94.8) fl MCH (25.6-32.2) pg MCHC (32.2-35.5) g/dl RDW Std Deviation (36.4-46.3) fL Plt Count (182-369) K/mm3 MPV (9.4-12.3) fl Neut % (Auto) (34.0-71.1) % Lymph % (Auto) (19.3-51.7) % Glenn % (Auto) (4.7-12.5) % Eos % (Auto) (0.7-5.8) Baso % (Auto) (0.1-1.2) % Neut # (Auto) (1.56-6.13) K/mm3 Lymph # (Auto) (1.18-3.74) K/mm3 Glenn # (Auto) (0.24-0.36) K/mm3 Eos # (Auto) (0.04-0.36) K/mm3 Baso # (Auto) (0.01-0.08) K/mm3 Manual Slide Review Sodium (136-145) mEq/L Potassium (3.5-5.1) mEq/L Chloride (98-107) mEq/L Carbon Dioxide (21-32) mEq/L Anion Gap (5-15) BUN (7-18) mg/dL Creatinine (0.55-1.02) mg/dL Est Cr Clr Drug Dosing mL/min Estimated GFR (MDRD) (>60) mL/min BUN/Creatinine Ratio (14-18) Glucose (83-115) mg/dL POC Glucose 202 H (83-110) mg/dL Lactic Acid (0.4-2.0) mmol/L Calcium (8.5-10.1) mg/dL Magnesium (1.8-2.4) mg/dl Troponin I 0.060 H* (0.00-0.056) ng/mL C-Reactive Protein (<1.0) mg/dL NT-Pro-B Natriuret Pep (0-450) pg/mL Uli Results Last 24 Hours: Microbiology 02/23/18 09:05 Aerobic Blood Culture - Preliminary Blood - Venous NO GROWTH AFTER 5 DAYS Anaerobic Blood Culture - Final Staphylococcus Aureus 02/26/18 05:28 Aerobic Blood Culture - Preliminary Blood - Venous - Lab Draw NO GROWTH AFTER 2 DAYS Anaerobic Blood Culture - Preliminary NO GROWTH AFTER 2 DAYS 02/26/18 05:20 Aerobic Blood Culture - Preliminary Blood - Venous NO GROWTH AFTER 2 DAYS Anaerobic Blood Culture - Preliminary NO GROWTH AFTER 2 DAYS 02/24/18 11:24 Gram Stain - Final Sputum - Expectorated Sputum Culture - Final Staphylococcus Aureus 02/23/18 09:45 Aerobic Blood Culture - Final Blood - Venous - Lab Draw Staphylococcus Aureus Anaerobic Blood Culture - Final Staphylococcus Aureus Med Orders - Current: Current Medications Acetaminophen (Tylenol) 650 mg PO Q4H PRN PRN Reason: Pain (Mild 1-3)/fever Hydrocodone Bitart/Acetaminophen ([place] 325-5 Mg) 1 tab PO Q4H PRN PRN Reason: Pain (moderate 4-6) Albuterol/Ipratropium (Duoneb 3.0-0.5 Mg/3 Ml) 3 ml NEB Q4H PRN PRN Reason: Shortness Of Breath/wheezing Bisacodyl (Dulcolax) 5 mg PO DAILY PRN PRN Reason: Constipation Calcium Carbonate/Glycine (Calcium Carbonate) 1,200 mg PO BID [facility] Last Admin: 02/28/18 08:21 Dose: 1,200 mg Dextrose/Water (Dextrose 50% In Water) 50 ml IVPUSH ASDIRECTED PRN PRN Reason: hypoglycemia Docusate Sodium (Colace) 100 mg PO BID PRN PRN Reason: Constipation Enoxaparin Sodium (Lovenox) 30 mg SUBCUT DAILY [facility] Last Admin: 02/28/18 08:22 Dose: 30 mg Famotidine (Pepcid) 20 mg PO DAILY [facility] Last Admin: 02/28/18 08:22 Dose: 20 mg Furosemide (Lasix) 20 mg IVPUSH DAILY [facility] Stop: 03/01/18 09:00 Last Admin: 02/28/18 09:22 Dose: 20 mg Furosemide (Lasix) 20 mg IVPUSH NOW ONE Stop: 02/28/18 14:01 Hydralazine HCl (Apresoline) 10 mg IVPUSH Q6H PRN PRN Reason: Hypertension Insulin Aspart (Novolog) 0 unit SUBCUT QIDACANDBED [facility]; Protocol Last Admin: 02/28/18 08:23 Dose: 2 unit Levofloxacin (Levaquin) 250 mg PO Q24H [facility] Last Admin: 02/27/18 20:22 Dose: 250 mg Magnesium Oxide (Magnesium Oxide) 400 mg PO BID [facility] Last Admin: 02/28/18 08:23 Dose: 400 mg Megestrol Acetate (Megace 40 Mg/Ml Susp) 400 mg PO DAILY [facility] Last Admin: 02/28/18 08:22 Dose: 400 mg Methylprednisolone Sodium Succinate (Solu-Medrol) 60 mg IVPUSH Q24H [facility] Last Admin: 02/27/18 21:57 Dose: 60 mg Metoprolol Tartrate (Lopressor) 5 mg IVPUSH Q4H PRN PRN Reason: Tachycardia Ondansetron HCl (Zofran Odt) 4 mg PO Q6H PRN PRN Reason: nausea, able to take PO Ondansetron HCl (Zofran) 4 mg IV Q6H PRN PRN Reason: Nausea/Vomiting Oral Electrolytes (Thermotabs) 1 each PO BID [facility] Last Admin: 02/28/18 08:22 Dose: 1 each Polyethylene Glycol (Miralax) 17 gm PO DAILY PRN PRN Reason: Constipation Saccharomyces Boulardii (Florastor) 250 mg PO BID [facility] Last Admin: 02/28/18 08:22 Dose: 250 mg Senna/Docusate Sodium (Senna Plus) 1 tab PO BID PRN PRN Reason: Constipation Sertraline HCl (Zoloft) 25 mg PO DAILY [facility] Simvastatin (Zocor) 40 mg PO DAILY [facility] Last Admin: 02/28/18 08:22 Dose: 40 mg Sodium Chloride (Saline Flush) 10 ml FLUSH ASDIRECTED PRN PRN Reason: Keep Vein Open Discontinued Medications Benazepril HCl (Lotensin) 5 mg PO DAILY [facility] Last Admin: 02/24/18 08:36 Dose: 5 mg Famotidine (Pepcid) 20 mg PO BID [facility] Last Admin: 02/25/18 20:35 Dose: 20 mg Furosemide (Lasix) 20 mg IVPUSH NOW ONE Stop: 02/23/18 19:05 Last Admin: 02/23/18 19:25 Dose: 20 mg Furosemide (Lasix) 20 mg IVPUSH NOW ONE Stop: 02/24/18 09:38 Last Admin: 02/24/18 10:05 Dose: 20 mg Furosemide (Lasix) 20 mg IVPUSH NOW ONE Stop: 02/27/18 09:11 Last Admin: 02/27/18 09:37 Dose: 20 mg Sodium Chloride (Normal Saline) 1,000 mls @ 250 mls/hr IV ASDIRECTED [facility] Last Admin: 02/23/18 17:50 Dose: 250 mls/hr Ceftriaxone Sodium 2 gm/ (Sodium Chloride) 100 mls @ 100 mls/hr IV Q24H [facility] Last Admin: 02/23/18 10:34 Dose: 100 mls/hr Magnesium Sulfate 2 gm/ Premix 50 mls @ 25 mls/hr IV ONETIME ONE Stop: 02/23/18 14:27 Last Admin: 02/23/18 13:26 Dose: 25 mls/hr Ceftriaxone Sodium 2 gm/ (Sodium Chloride) 100 mls @ 100 mls/hr IV Q24H [facility] Ceftriaxone Sodium 2 gm/ (Sodium Chloride) 100 mls @ 100 mls/hr IV Q24H [facility] Last Admin: 02/23/18 15:42 Dose: Not Given Ceftriaxone Sodium 2 gm/ (Sodium Chloride) 100 mls @ 100 mls/hr IV Q24H [facility] Last Admin: 02/25/18 11:31 Dose: 100 mls/hr Dextrose/Sodium Chloride (Dextrose 5%-Normal Saline) 1,000 mls @ 100 mls/hr IV ASDIRECTED [facility] Stop: 02/24/18 05:14 Last Admin: 02/23/18 19:37 Dose: 100 mls/hr Dextrose/Sodium Chloride (Dextrose 5%-Normal Saline) 1,000 mls @ 75 mls/hr IV ASDIRECTED [facility] Potassium Chloride 10 meq/ (Premix) 100 mls @ 100 mls/hr IV Q1H [facility] Stop: 02/24/18 12:44 Magnesium Sulfate 2 gm/ Premix 50 mls @ 25 mls/hr IV ONETIME ONE Stop: 02/24/18 11:35 Last Admin: 02/24/18 09:43 Dose: Not Given Potassium Chloride 10 meq/ (Premix) 100 mls @ 100 mls/hr IV Q1H [facility] Stop: 02/24/18 15:59 Last Admin: 02/24/18 15:47 Dose: Not Given Magnesium Sulfate 2 gm/ Premix 50 mls @ 25 mls/hr IV ONETIME ONE Stop: 02/24/18 12:59 Last Admin: 02/24/18 11:09 Dose: 25 mls/hr Doxycycline Hyclate 100 mg/ (Sodium Chloride) 100 mls @ 100 mls/hr IV Q12H [facility] Last Admin: 02/25/18 04:18 Dose: 100 mls/hr Levofloxacin/Dextrose 500 mg/ (Premix) 100 mls @ 100 mls/hr IV ONETIME ONE Stop: 02/25/18 22:59 Last Admin: 02/25/18 21:08 Dose: 100 mls/hr Levofloxacin/Dextrose 250 mg/ (Premix) 50 mls @ 50 mls/hr IV Q24H [facility] Last Admin: 02/26/18 21:05 Dose: 50 mls/hr Magnesium Oxide (Magnesium Oxide) 400 mg PO Q4H [facility] Stop: 02/27/18 13:16 Last Admin: 02/27/18 13:20 Dose: 400 mg Magnesium Oxide (Magnesium Oxide) 400 mg PO ONETIME ONE Stop: 02/28/18 08:21 Last Admin: 02/28/18 08:34 Dose: 400 mg Methylprednisolone Sodium Succinate (Solu-Medrol) 60 mg IVPUSH Q12H [facility] Last Admin: 02/25/18 22:31 Dose: 60 mg Morphine Sulfate (Morphine) 0.5 mg IVPUSH Q2H PRN PRN Reason: Pain (severe 7-10) Stop: 02/24/18 12:25 Ondansetron HCl (Zofran) 4 mg IVPUSH ONETIME ONE Stop: 02/23/18 08:33 Last Admin: 02/23/18 08:53 Dose: 4 mg Potassium Chloride (Klor-Con M20) 40 meq PO ONETIME ONE Stop: 02/24/18 09:32 Last Admin: 02/24/18 09:51 Dose: 40 meq Potassium Chloride (Potassium Chloride Solution) 40 meq PO ONETIME ONE Stop: 02/24/18 15:46 Last Admin: 02/24/18 16:02 Dose: 40 meq Vancomycin HCl (Pharmacy To Dose - Vancomycin) 1 dose .XX ASDIRECTED [facility] - Exam Quality Assessment: DVT Prophylaxis. No: Supplemental Oxygen, Urine Catheter General: Alert, Oriented, Cooperative, No Acute Distress HEENT: Pupils Equal, Pupils Reactive, EOMI, Mucous Membr. Moist/[place] Neck: Supple Lungs: Normal Respiratory Effort, Decreased Breath Sounds, Wheezing Cardiovascular: Regular Rate, Regular Rhythm, Murmurs GI/Abdominal Exam: Normal Bowel Sounds, Soft, Non-Tender, No Organomegaly, No Distention, No Abnormal Bruit, No Mass, Pelvis Stable (Female) Exam: Deferred Back Exam: Normal Inspection, Full Range of Motion Extremities: Normal Inspection, Normal Range of Motion, Non-Tender, No Pedal Edema, Normal Capillary Refill Peripheral Pulses: 1+: Posterior Tibial (L), Posterior Tibial (R), Dorsalis Pedis (L), Dorsalis Pedis (R) Skin: Warm, Dry, Intact Neurological: No New Focal Deficit Psy/Mental Status: Alert, Normal Affect, Depressed (situational- about [facility] ) - Problem List & Annotations (1) Bacteremia SNOMED Code(s): 5835730 Code(s): R78.81 - BACTEREMIA Status: Acute Priority: High Current Visit : Yes (2) Congestive heart failure SNOMED Code(s): 76008155 Code(s): I50.9 - HEART FAILURE, UNSPECIFIED Status: Acute Priority: High Current Visit: Yes Qualifiers: Heart failure type: diastolic Heart failure chronicity: acute on chronic Qualified Code(s): I50.33 - Acute on chronic diastolic (congestive) heart failure (3) Dehydration SNOMED Code(s): 16210127 Code(s): E86.0 - DEHYDRATION Status: Acute Priority: High Current Visit : Yes (4) Failure to thrive in adult SNOMED Code(s): 919637850 Code(s): R62.7 - ADULT FAILURE TO THRIVE Status: Acute Priority: High Current Visit: Yes (5) Hypocalcemia SNOMED Code(s): 8158685 Code(s): E83.51 - HYPOCALCEMIA Status: Acute Priority: High Current Visit: Yes (6) Hypokalemia SNOMED Code(s): 93504072 Code(s): E87.6 - HYPOKALEMIA Status: Acute Priority: High Current Visit : Yes (7) Hypomagnesemia SNOMED Code(s): 787893853 Code(s): E83.42 - HYPOMAGNESEMIA Status: Acute Priority: High Current Visit: Yes (8) Leukocytosis SNOMED Code(s): 110123523, 990941748 Code(s): D72.829 - ELEVATED WHITE BLOOD CELL COUNT, UNSPECIFIED Status: Acute Priority: High Current Visit: Yes Qualifiers: Leukocytosis type: unspecified Qualified Code(s): D72.829 - Elevated white blood cell count, unspecified (9) Metabolic acidosis SNOMED Code(s): 11258125 Code(s): E87.2 - ACIDOSIS Status: Acute Priority: High Current Visit: Yes (10) Pulmonary fibrosis determined by high resolution computed tomography SNOMED Code(s): 76842323, 999254575 Code(s): J84.10 - PULMONARY FIBROSIS, UNSPECIFIED Status: Acute Priority : High Current Visit: Yes (11) Upper urinary tract infection SNOMED Code(s): 230931526 Code(s): N39.0 - URINARY TRACT INFECTION, SITE NOT SPECIFIED Status: Acute Priority: High Current Visit: Yes (12) Weakness SNOMED Code(s): 50386361 Code(s): R53.1 - WEAKNESS Status: Acute Priority: High Current Visit: Yes (13) Weight loss, unintentional SNOMED Code(s): 117691306 Code(s): R63.4 - ABNORMAL WEIGHT LOSS Status: Acute Priority: High Current Visit: Yes (14) Nausea SNOMED Code(s): 812419142 Code(s): R11.0 - NAUSEA Status: Resolved Priority: High Current Visit: Yes (15) Pneumonia SNOMED Code(s): 688619058 Code(s): J18.9 - PNEUMONIA, UNSPECIFIED ORGANISM Status: Acute Priority: High Current Visit: Yes Qualifiers: Pneumonia type: due to unspecified organism Laterality: unspecified laterality Lung location: unspecified part of lung Qualified Code(s): J18.9 - Pneumonia, unspecified organism - Problem List Review Problem List Initiated/Reviewed/Updated: Yes - My Orders Last 24 Hours: My Active Orders 02/27/18 09:15 Potassium Chloride/NaCl [Thermotabs] 1 each PO BID 02/28/18 09:15 Furosemide [Lasix] 20 mg IVPUSH DAILY 02/28/18 09:30 Sertraline [Zoloft] 25 mg PO DAILY 02/28/18 12:00 LACTIC ACID [CHEM] Routine 02/28/18 14:00 Furosemide [Lasix] 20 mg IVPUSH NOW ONE - Plan Plan:: I/P: Acute: Acute Pneumonia, bacterial -Sputum Culture positive for gram positive cocci, most likely Staph Aureus ( same as blood culture) -Mycoplasma, Influenza, Strep pneumonia negative -WBC 23.94-->17.47-->15.43-->16.27-->14.31-->15.58 -CRP 22.2-->20.9-->13.7-->6-->3.2 -->2.4 -Repeat CXR shows nothing acute -Noted on CT scan (12/24/17) -1. Fairly severe interstitial fibrosis -2. More focal area of density within both posterior lung bases. Without previous study, uncertain if findings represent change from chronic aspiration, pneumonia, or more focal areas of scarring. -3. Nodular density (2.1 cm) within approximate superior segment of the left lower lung with similar differential, although difficult to exclude a neoplastic nodule. -Recommend follow-up CT without contrast in 4 months -Recommend establish with caustic mixer outpatient after discharge -Solumedrol --> Prednisone taper -Start Levoquin to cover all organisms -RT/Nebs/IS/FV Bacteremia -Blood culture--> Staph Aureus -Different organism than urine, most likely 2/2 Pneumonia -Add doxycycline for coverage--> D/C, starting Levoquin today to cover all organisms -Repeat blood cultures in 48 hours -Contact precautions UTI -Reports weakness, weight loss, malaise, but no urinary symptoms, no CVA tenderness, no fever -UA unimpressive with no leukocyte esterase or nitrite, 40-50 WBC, 20-30 RBC , but many bacteria -Culture --> positive for Klebseilla Pneumoniae and Enterococcus Faecalis -WBC 23.94-->17.47-->15.43->16.27-->14.31-->15.58 -CRP 22.2-->20.9-->13.7--> 6-->3.2-->2.4 -Lactic acid 1.5-->0.9-->1.4-->1.1-->2.1 -Repeat Lactic acid at noon -->3.7 -IV fluids as ordered -Rocephin 2gm Q24HR--> D/C; Start Levoquin to cover bacteria found in Culture -Blood cultures as above Failure to thrive -Assisted living resident -Has reportedly needed 2 person assistance for last several days -10-12 lb weight loss -Poor oral intake, weakness--> Zoloft 25mg to help with appetite and transitional sadness -PT/OT -SW consult -Hospitalized last year for falls/Bronchitis -Old records indicate chronic unsteady gait -Ordnance Mechanic consult Heart failure/Type II PR -No edema, CXR shows no pulmonary congestion, Repeat CXR negative as well -BNP 1972--> 5357-->5267-->15331-->49424-->29122-->51164 -Troponin 0.025-->0.076-->0.060, most likely Type II PR -Clinically unremarkable, No weight gain, no pedal edema, no chest pain. -No prior echo on file -Echo (02/24/18)--> LVEF 65-70%, Severe Aortic Stenosis, Moderate AVR/TVR, Mild MR, Impaired relaxation (Grade I) patter of LV diastolic filling, RV systolic pressure mod-severely elevated -12-lead suggests right atrial and left ventricular hypertrophy -3/6 pansystolic murmur suggesting aortic stenosis Electrolyte abnormalities -Hypokalemia -Hypomagnesemia -Hypocalcemia -2/2 inadequate intake -Supplement -Ordnance Mechanic consulted Chronic: HTN Type II DM - SS insulin, QID glucose checks Hypomagnesemia HLD Pulmonary fibrosis Pulmonary nodule --> f/u with caustic mixer, repeat CT w/o contrast in 4 months Plan: Admit to medical floor on telemetry Other orders as indicated above Routine AM labs DVT prophylaxis: Lovenox, MANUELA hose GI prophylaxis: Pepcid RT/PT/OT CM/SW for discharge planning--> PT AND FAMILY HAVE DECIDED ON [facility] FOR PLACEMENT; Dr. Stone is new PCP Home medications as ordered Most likely D/C Saturday Code Status: Full code; PCP: Dr. Stone LOS >96 hours due to slow response to treatment.
[2018-02-28] MEDS: Sertraline 25 MG Tab PO SCH (10:07)
[2018-02-28] MEDS ORDERED: predniSONE 10 MG Tab PO SCH (10:45)
[2018-02-28] MEDS: predniSONE 20 MG Tab PO SCH (11:27)
[2018-02-28] MEDS ORDERED: Furosemide 20 MG/2 ML VIAL IVPUSH ONE (14:00)
[2018-02-28] MEDS: Levofloxacin 250 MG Tab PO SCH (21:46)
[2018-03-01] MEDS: Potassium Chloride/Sodium Chloride Tab PO SCH ×3 (08:16→22:21)
[2018-03-01] MEDS: Famotidine 20 MG Tab PO SCH (08:16)
[2018-03-01] MEDS: Calcium Carbonate 600 MG Tab PO SCH ×2 (08:17→22:21)
[2018-03-01] MEDS: predniSONE 20 MG Tab PO SCH (08:17)
[2018-03-01] MEDS: Sertraline 25 MG Tab PO SCH (08:18)
[2018-03-01] MEDS: Enoxaparin 30 MG/0.3 ML Syringe SUBCUT SCH (08:18)
[2018-03-01] MEDS: Saccharomyces Boulardii (Probiotic) 250 MG Cap PO SCH ×2 (08:18→22:21)
[2018-03-01] MEDS: Furosemide 20 MG/2 ML VIAL IVPUSH SCH (08:18)
[2018-03-01] MEDS: Megestrol Susp 40 MG/ML 10 ML UD Cup PO SCH (08:18)
[2018-03-01] MEDS: Simvastatin 40 MG Tab PO SCH (08:18)
[2018-03-01] MEDS: Magnesium Oxide 400 MG Tab PO SCH ×2 (08:18→22:22)
[2018-03-01] MEDS: Insulin Aspart 100 Units/ML 3 ML Pen SUBCUT SCH ×4 (08:19→22:22)
[2018-03-01] MEDS: Magnesium Sulfate/Water 4 GM in Premix Bag 1 BAG IV ONE ×2 (11:59→12:04)
[2018-03-01] MEDS ORDERED: Magnesium Sulfate/Water 4 GM in Premix Bag 1 BAG IV ONE (12:15)
--- NOTE | 2018-03-01 13:41 | PCM.PN ---
- General Info Date of Service: 03/01/18 Subjective Update: Patient has refused to ambulate other than to the bathroom. She has no complaints except sitting in the chair. Functional Status: Reports: Pain Controlled, Tolerating Diet, Ambulating, Urinating - Review of Systems General: Reports: No Symptoms HEENT: Reports: No Symptoms Pulmonary: Reports: No Symptoms Cardiovascular: Reports: No Symptoms Gastrointestinal: Reports: No Symptoms Genitourinary: Reports: No Symptoms Musculoskeletal: Reports: No Symptoms Skin: Reports: No Symptoms Neurological: Reports: No Symptoms Psychiatric: Reports: No Symptoms - Patient Data Vitals - Most Recent: Last Vital Signs Temp 36.7 C 03/01/18 08:11 Pulse 83 03/01/18 08:11 Resp 18 03/01/18 08:11 BP 142/33 H 03/01/18 08:11 Pulse Ox 95 03/01/18 08:11 Weight - Most Recent: 40.993 kg I&O - Last 24 Hours: Intake & Output 02/28/18 03/01/18 03/01/18 22:59 06:59 14:59 Intake Total 490 500 180 Output Total 250 Balance 240 500 180 Lab Results Last 24 Hours: Laboratory Results - last 24 hr 02/28/18 02/28/18 03/01/18 Range/Units 16:54 21:48 05:33 WBC 15.49 H (3.98-10.04) K/mm3 RBC 3.66 L (3.98-5.22) M/mm3 Hgb 10.7 L (11.2-15.7) gm/L Hct 31.4 L (34.1-44.9) % MCV 85.8 (79.4-94.8) fl MCH 29.2 (25.6-32.2) pg MCHC 34.1 (32.2-35.5) g/dl RDW Std Deviation 41.9 (36.4-46.3) fL Plt Count 428 H (182-369) K/mm3 MPV 9.0 L (9.4-12.3) fl Neut % (Auto) 87.0 H (34.0-71.1) % Lymph % (Auto) 6.6 L (19.3-51.7) % [place] % (Auto) 5.9 (4.7-12.5) % Eos % (Auto) 0 L (0.7-5.8) Baso % (Auto) 0.0 L (0.1-1.2) % Neut # (Auto) 13.47 H (1.56-6.13) K/mm3 Lymph # (Auto) 1.03 L (1.18-3.74) K/mm3 [place] # (Auto) 0.91 H (0.24-0.36) K/mm3 Eos # (Auto) 0.00 L (0.04-0.36) K/mm3 Baso # (Auto) 0.00 L (0.01-0.08) K/mm3 Manual Slide Review Abnormal smear Sodium (136-145) mEq/L Potassium (3.5-5.1) mEq/L Chloride (98-107) mEq/L Carbon Dioxide (21-32) mEq/L Anion Gap (5-15) BUN (7-18) mg/dL Creatinine (0.55-1.02) mg/dL Est Cr Clr Drug Dosing mL/min Estimated GFR (MDRD) (>60) mL/min BUN/Creatinine Ratio (14-18) Glucose (83-115) mg/dL POC Glucose 207 H 166 H (83-110) mg/dL Lactic Acid (0.4-2.0) mmol/L Calcium (8.5-10.1) mg/dL Magnesium (1.8-2.4) mg/dl Troponin I (0.00-0.056) ng/mL C-Reactive Protein (<1.0) mg/dL NT-Pro-B Natriuret Pep (0-450) pg/mL 03/01/18 03/01/18 03/01/18 Range/Units 05:33 05:33 05:33 WBC (3.98-10.04) K/mm3 RBC (3.98-5.22) M/mm3 Hgb (11.2-15.7) gm/L Hct (34.1-44.9) % MCV (79.4-94.8) fl MCH (25.6-32.2) pg MCHC (32.2-35.5) g/dl RDW Std Deviation (36.4-46.3) fL Plt Count (182-369) K/mm3 MPV (9.4-12.3) fl Neut % (Auto) (34.0-71.1) % Lymph % (Auto) (19.3-51.7) % [place] % (Auto) (4.7-12.5) % Eos % (Auto) (0.7-5.8) Baso % (Auto) (0.1-1.2) % Neut # (Auto) (1.56-6.13) K/mm3 Lymph # (Auto) (1.18-3.74) K/mm3 [place] # (Auto) (0.24-0.36) K/mm3 Eos # (Auto) (0.04-0.36) K/mm3 Baso # (Auto) (0.01-0.08) K/mm3 Manual Slide Review Sodium 127 L (136-145) mEq/L Potassium 4.0 (3.5-5.1) mEq/L Chloride 94 L (98-107) mEq/L Carbon Dioxide 29 (21-32) mEq/L Anion Gap 8.0 (5-15) BUN 17 (7-18) mg/dL Creatinine 0.5 L (0.55-1.02) mg/dL Est Cr Clr Drug Dosing 55.17 mL/min Estimated GFR (MDRD) > 60 (>60) mL/min BUN/Creatinine Ratio 34.0 H (14-18) Glucose 203 H (83-115) mg/dL POC Glucose (83-110) mg/dL Lactic Acid 1.5 (0.4-2.0) mmol/L Calcium 8.2 L (8.5-10.1) mg/dL Magnesium 1.5 L (1.8-2.4) mg/dl Troponin I 0.031 (0.00-0.056) ng/mL C-Reactive Protein 1.5 H* (<1.0) mg/dL NT-Pro-B Natriuret Pep 08456 H (0-450) pg/mL 03/01/18 03/01/18 Range/Units 06:16 10:38 WBC (3.98-10.04) K/mm3 RBC (3.98-5.22) M/mm3 Hgb (11.2-15.7) gm/L Hct (34.1-44.9) % MCV (79.4-94.8) fl MCH (25.6-32.2) pg MCHC (32.2-35.5) g/dl RDW Std Deviation (36.4-46.3) fL Plt Count (182-369) K/mm3 MPV (9.4-12.3) fl Neut % (Auto) (34.0-71.1) % Lymph % (Auto) (19.3-51.7) % [place] % (Auto) (4.7-12.5) % Eos % (Auto) (0.7-5.8) Baso % (Auto) (0.1-1.2) % Neut # (Auto) (1.56-6.13) K/mm3 Lymph # (Auto) (1.18-3.74) K/mm3 [place] # (Auto) (0.24-0.36) K/mm3 Eos # (Auto) (0.04-0.36) K/mm3 Baso # (Auto) (0.01-0.08) K/mm3 Manual Slide Review Sodium (136-145) mEq/L Potassium (3.5-5.1) mEq/L Chloride (98-107) mEq/L Carbon Dioxide (21-32) mEq/L Anion Gap (5-15) BUN (7-18) mg/dL Creatinine (0.55-1.02) mg/dL Est Cr Clr Drug Dosing mL/min Estimated GFR (MDRD) (>60) mL/min BUN/Creatinine Ratio (14-18) Glucose (83-115) mg/dL POC Glucose 174 H 228 H (83-110) mg/dL Lactic Acid (0.4-2.0) mmol/L Calcium (8.5-10.1) mg/dL Magnesium (1.8-2.4) mg/dl Troponin I (0.00-0.056) ng/mL C-Reactive Protein (<1.0) mg/dL NT-Pro-B Natriuret Pep (0-450) pg/mL Uli Results Last 24 Hours: Microbiology 02/23/18 09:05 Aerobic Blood Culture - Preliminary Blood - Venous NO GROWTH AFTER 6 DAYS Anaerobic Blood Culture - Final Staphylococcus Aureus 02/26/18 05:28 Aerobic Blood Culture - Preliminary Blood - Venous - Lab Draw NO GROWTH AFTER 3 DAYS Anaerobic Blood Culture - Preliminary NO GROWTH AFTER 3 DAYS 02/26/18 05:20 Aerobic Blood Culture - Preliminary Blood - Venous NO GROWTH AFTER 3 DAYS Anaerobic Blood Culture - Preliminary NO GROWTH AFTER 3 DAYS Med Orders - Current: Current Medications Acetaminophen (Tylenol) 650 mg PO Q4H PRN PRN Reason: Pain (Mild 1-3)/fever Hydrocodone Bitart/Acetaminophen ([place] 325-5 Mg) 1 tab PO Q4H PRN PRN Reason: Pain (moderate 4-6) Albuterol/Ipratropium (Duoneb 3.0-0.5 Mg/3 Ml) 3 ml NEB Q4H PRN PRN Reason: Shortness Of Breath/wheezing Bisacodyl (Dulcolax) 5 mg PO DAILY PRN PRN Reason: Constipation Calcium Carbonate/Glycine (Calcium Carbonate) 1,200 mg PO BID [facility] Last Admin: 03/01/18 08:17 Dose: 1,200 mg Dextrose/Water (Dextrose 50% In Water) 50 ml IVPUSH ASDIRECTED PRN PRN Reason: hypoglycemia Docusate Sodium (Colace) 100 mg PO BID PRN PRN Reason: Constipation Enoxaparin Sodium (Lovenox) 30 mg SUBCUT DAILY [facility] Last Admin: 03/01/18 08:18 Dose: 30 mg Famotidine (Pepcid) 20 mg PO DAILY [facility] Last Admin: 03/01/18 08:16 Dose: 20 mg Furosemide (Lasix) 20 mg IVPUSH ONETIME ONE Stop: 03/01/18 15:01 Hydralazine HCl (Apresoline) 10 mg IVPUSH Q6H PRN PRN Reason: Hypertension Magnesium Sulfate 4 gm/ Premix 100 mls @ 25 mls/hr IV ONETIME ONE Stop: 03/01/18 16:14 Last Admin: 03/01/18 12:04 Dose: 25 mls/hr Insulin Aspart (Novolog) 0 unit SUBCUT QIDACANDBED [facility]; Protocol Last Admin: 03/01/18 11:59 Dose: 2 unit Levofloxacin (Levaquin) 250 mg PO Q24H [facility] Stop: 03/04/18 21:01 Last Admin: 02/28/18 21:46 Dose: 250 mg Magnesium Oxide (Magnesium Oxide) 400 mg PO BID [facility] Last Admin: 03/01/18 08:18 Dose: 400 mg Megestrol Acetate (Megace 40 Mg/Ml Susp) 400 mg PO DAILY [facility] Last Admin: 03/01/18 08:18 Dose: 400 mg Metoprolol Tartrate (Lopressor) 5 mg IVPUSH Q4H PRN PRN Reason: Tachycardia Ondansetron HCl (Zofran Odt) 4 mg PO Q6H PRN PRN Reason: nausea, able to take PO Ondansetron HCl (Zofran) 4 mg IV Q6H PRN PRN Reason: Nausea/Vomiting Oral Electrolytes (Thermotabs) 2 each PO TID [facility] Polyethylene Glycol (Miralax) 17 gm PO DAILY PRN PRN Reason: Constipation Prednisone (Prednisone) 40 mg PO DAILY [facility] Stop: 03/02/18 09:01 Last Admin: 03/01/18 08:17 Dose: 40 mg Prednisone (Prednisone) 20 mg PO DAILY [facility] Stop: 03/05/18 09:01 Prednisone (Prednisone) 10 mg PO DAILY [facility] Stop: 03/08/18 09:01 Saccharomyces Boulardii (Florastor) 250 mg PO BID [facility] Last Admin: 03/01/18 08:18 Dose: 250 mg Senna/Docusate Sodium (Senna Plus) 1 tab PO BID PRN PRN Reason: Constipation Sertraline HCl (Zoloft) 25 mg PO DAILY [facility] Last Admin: 03/01/18 08:18 Dose: 25 mg Simvastatin (Zocor) 40 mg PO DAILY [facility] Last Admin: 03/01/18 08:18 Dose: 40 mg Sodium Chloride (Saline Flush) 10 ml FLUSH ASDIRECTED PRN PRN Reason: Keep Vein Open Discontinued Medications Benazepril HCl (Lotensin) 5 mg PO DAILY [facility] Last Admin: 02/24/18 08:36 Dose: 5 mg Famotidine (Pepcid) 20 mg PO BID [facility] Last Admin: 02/25/18 20:35 Dose: 20 mg Furosemide (Lasix) 20 mg IVPUSH NOW ONE Stop: 02/23/18 19:05 Last Admin: 02/23/18 19:25 Dose: 20 mg Furosemide (Lasix) 20 mg IVPUSH NOW ONE Stop: 02/24/18 09:38 Last Admin: 02/24/18 10:05 Dose: 20 mg Furosemide (Lasix) 20 mg IVPUSH NOW ONE Stop: 02/27/18 09:11 Last Admin: 02/27/18 09:37 Dose: 20 mg Furosemide (Lasix) 20 mg IVPUSH DAILY [facility] Stop: 03/01/18 09:00 Last Admin: 03/01/18 08:18 Dose: 20 mg Furosemide (Lasix) 20 mg IVPUSH NOW ONE Stop: 02/28/18 14:01 Last Admin: 02/28/18 13:54 Dose: 20 mg Sodium Chloride (Normal Saline) 1,000 mls @ 250 mls/hr IV ASDIRECTED [facility] Last Admin: 02/23/18 17:50 Dose: 250 mls/hr Ceftriaxone Sodium 2 gm/ (Sodium Chloride) 100 mls @ 100 mls/hr IV Q24H [facility] Last Admin: 02/23/18 10:34 Dose: 100 mls/hr Magnesium Sulfate 2 gm/ Premix 50 mls @ 25 mls/hr IV ONETIME ONE Stop: 02/23/18 14:27 Last Admin: 02/23/18 13:26 Dose: 25 mls/hr Ceftriaxone Sodium 2 gm/ (Sodium Chloride) 100 mls @ 100 mls/hr IV Q24H [facility] Ceftriaxone Sodium 2 gm/ (Sodium Chloride) 100 mls @ 100 mls/hr IV Q24H [facility] Last Admin: 02/23/18 15:42 Dose: Not Given Ceftriaxone Sodium 2 gm/ (Sodium Chloride) 100 mls @ 100 mls/hr IV Q24H [facility] Last Admin: 02/25/18 11:31 Dose: 100 mls/hr Dextrose/Sodium Chloride (Dextrose 5%-Normal Saline) 1,000 mls @ 100 mls/hr IV ASDIRECTED [facility] Stop: 02/24/18 05:14 Last Admin: 02/23/18 19:37 Dose: 100 mls/hr Dextrose/Sodium Chloride (Dextrose 5%-Normal Saline) 1,000 mls @ 75 mls/hr IV ASDIRECTED [facility] Potassium Chloride 10 meq/ (Premix) 100 mls @ 100 mls/hr IV Q1H [facility] Stop: 02/24/18 12:44 Magnesium Sulfate 2 gm/ Premix 50 mls @ 25 mls/hr IV ONETIME ONE Stop: 02/24/18 11:35 Last Admin: 02/24/18 09:43 Dose: Not Given Potassium Chloride 10 meq/ (Premix) 100 mls @ 100 mls/hr IV Q1H [facility] Stop: 02/24/18 15:59 Last Admin: 02/24/18 15:47 Dose: Not Given Magnesium Sulfate 2 gm/ Premix 50 mls @ 25 mls/hr IV ONETIME ONE Stop: 02/24/18 12:59 Last Admin: 02/24/18 11:09 Dose: 25 mls/hr Doxycycline Hyclate 100 mg/ (Sodium Chloride) 100 mls @ 100 mls/hr IV Q12H [facility] Last Admin: 02/25/18 04:18 Dose: 100 mls/hr Levofloxacin/Dextrose 500 mg/ (Premix) 100 mls @ 100 mls/hr IV ONETIME ONE Stop: 02/25/18 22:59 Last Admin: 02/25/18 21:08 Dose: 100 mls/hr Levofloxacin/Dextrose 250 mg/ (Premix) 50 mls @ 50 mls/hr IV Q24H [facility] Last Admin: 02/26/18 21:05 Dose: 50 mls/hr Magnesium Sulfate 4 gm/ Premix 100 mls @ 300 mls/hr IV ONETIME ONE Stop: 03/01/18 11:21 Last Admin: 03/01/18 12:04 Dose: Not Given Magnesium Oxide (Magnesium Oxide) 400 mg PO Q4H [facility] Stop: 02/27/18 13:16 Last Admin: 02/27/18 13:20 Dose: 400 mg Magnesium Oxide (Magnesium Oxide) 400 mg PO ONETIME ONE Stop: 02/28/18 08:21 Last Admin: 02/28/18 08:34 Dose: 400 mg Methylprednisolone Sodium Succinate (Solu-Medrol) 60 mg IVPUSH Q12H [facility] Last Admin: 02/25/18 22:31 Dose: 60 mg Methylprednisolone Sodium Succinate (Solu-Medrol) 60 mg IVPUSH Q24H [facility] Last Admin: 02/27/18 21:57 Dose: 60 mg Morphine Sulfate (Morphine) 0.5 mg IVPUSH Q2H PRN PRN Reason: Pain (severe 7-10) Stop: 02/24/18 12:25 Ondansetron HCl (Zofran) 4 mg IVPUSH ONETIME ONE Stop: 02/23/18 08:33 Last Admin: 02/23/18 08:53 Dose: 4 mg Oral Electrolytes (Thermotabs) 1 each PO BID [facility] Last Admin: 02/28/18 08:22 Dose: 1 each Oral Electrolytes (Thermotabs) 2 each PO BID [facility] Last Admin: 03/01/18 08:16 Dose: 2 each Potassium Chloride (Klor-Con M20) 40 meq PO ONETIME ONE Stop: 02/24/18 09:32 Last Admin: 02/24/18 09:51 Dose: 40 meq Potassium Chloride (Potassium Chloride Solution) 40 meq PO ONETIME ONE Stop: 02/24/18 15:46 Last Admin: 02/24/18 16:02 Dose: 40 meq Prednisone (Prednisone) 0 mg PO .Daily Taper [facility]; Taper Stop: 03/09/18 10:44 Vancomycin HCl (Pharmacy To Dose - Vancomycin) 1 dose .XX ASDIRECTED [facility] - Exam Quality Assessment: DVT Prophylaxis General: Alert, Oriented, No Acute Distress HEENT: Pupils Equal, Pupils Reactive, EOMI Neck: Trachea Midline Lungs: Normal Respiratory Effort, Decreased Breath Sounds Cardiovascular: Regular Rate, Regular Rhythm GI/Abdominal Exam: Normal Bowel Sounds, Soft, Non-Tender, No Organomegaly, No Distention (Female) Exam: Deferred Back Exam: Normal Inspection Extremities: Normal Inspection, Non-Tender, No Pedal Edema Skin: Warm Neurological: No New Focal Deficit, Normal Speech Psy/Mental Status: Alert, Depressed - Problem List Review Problem List Initiated/Reviewed/Updated: Yes - My Orders Last 24 Hours: My Active Orders 03/01/18 12:15 Magnesium Sulfate/Water [Magnesium Sulfate 4 GM in Water 100 ML] 4 gm Premix Bag 1 bag IV ONETIME 03/01/18 15:00 Furosemide [Lasix] 20 mg IVPUSH ONETIME ONE Potassium Chloride/NaCl [Thermotabs] 2 each PO TID - Plan Plan:: I/P: Acute: Acute Pneumonia, bacterial -Sputum Culture positive for gram positive cocci, most likely Staph Aureus ( same as blood culture) -Mycoplasma, Influenza, Strep pneumonia negative -WBC 23.94-->17.47-->15.43-->16.27-->14.31-->15.58 -CRP 22.2-->20.9-->13.7-->6-->3.2 -->2.4 -Repeat CXR shows nothing acute -Noted on CT scan (12/24/17) -1. Fairly severe interstitial fibrosis -2. More focal area of density within both posterior lung bases. Without previous study, uncertain if findings represent change from chronic aspiration, pneumonia, or more focal areas of scarring. -3. Nodular density (2.1 cm) within approximate superior segment of the left lower lung with similar differential, although difficult to exclude a neoplastic nodule. -Recommend follow-up CT without contrast in 4 months -Recommend establish with cash room clerk outpatient after discharge -Solumedrol --> Prednisone taper -Start Levoquin to cover all organisms -RT/Nebs/IS/FV Bacteremia -Blood culture--> Staph Aureus -Different organism than urine, most likely 2/2 Pneumonia -Add doxycycline for coverage--> D/C, starting Levoquin today to cover all organisms -Repeat blood cultures in 48 hours --negative x3 days. -Contact precautions UTI -Reports weakness, weight loss, malaise, but no urinary symptoms, no CVA tenderness, no fever -UA unimpressive with no leukocyte esterase or nitrite, 40-50 WBC, 20-30 RBC , but many bacteria -Culture --> positive for Klebseilla Pneumoniae and Enterococcus Faecalis -WBC 23.94-->17.47-->15.43->16.27-->14.31-->15.58 -CRP 22.2-->20.9-->13.7--> 6-->3.2-->2.4 -Lactic acid 1.5-->0.9-->1.4-->1.1-->2.1 -Repeat Lactic acid at noon -->3.7 -IV fluids as ordered -Rocephin 2gm Q24HR--> D/C; Start Levoquin to cover bacteria found in Culture -Blood cultures as above Failure to thrive -Assisted living resident -Has reportedly needed 2 person assistance for last several days -10-12 lb weight loss -Poor oral intake, weakness--> Zoloft 25mg to help with appetite and transitional sadness -PT/OT -SW consult -Hospitalized last year for falls/Bronchitis -Old records indicate chronic unsteady gait -Amplifier Mechanic consult Heart failure/Type II MN -No edema, CXR shows no pulmonary congestion, Repeat CXR negative as well -BNP 1972--> 5357-->5267-->58981-->55056-->07453-->70393 -Troponin 0.025-->0.076-->0.060, most likely Type II MN -Clinically unremarkable, No weight gain, no pedal edema, no chest pain. -No prior echo on file -Echo (02/24/18)--> LVEF 65-70%, Severe Aortic Stenosis, Moderate AVR/TVR, Mild MR, Impaired relaxation (Grade I) patter of LV diastolic filling, RV systolic pressure mod-severely elevated -12-lead suggests right atrial and left ventricular hypertrophy -3/6 pansystolic murmur suggesting aortic stenosis Electrolyte abnormalities -Hypokalemia -Hypomagnesemia -Hypocalcemia -2/2 inadequate intake -Supplement -Amplifier Mechanic consulted Chronic: HTN Type II DM - SS insulin, QID glucose checks Hypomagnesemia HLD Pulmonary fibrosis Pulmonary nodule --> f/u with cash room clerk, repeat CT w/o contrast in 4 months Plan: Admit to medical floor on telemetry Other orders as indicated above Routine AM labs DVT prophylaxis: Lovenox, MANUELA hose GI prophylaxis: Pepcid RT/PT/OT CM/SW for discharge planning--> PT AND FAMILY HAVE DECIDED ON [facility] FOR PLACEMENT; Dr. Stone is new PCP Home medications as ordered Most likely D/C Saturday Code Status: Full code; PCP: Dr. Stone LOS >96 hours due to slow response to treatment.
[2018-03-01] MEDS ORDERED: Furosemide 20 MG/2 ML VIAL IVPUSH ONE (15:00)
[2018-03-01] MEDS: Levofloxacin 250 MG Tab PO SCH (22:21)
[2018-03-02] MEDS: Famotidine 20 MG Tab PO SCH (08:47)
[2018-03-02] MEDS: Calcium Carbonate 600 MG Tab PO SCH ×2 (08:47→21:38)
[2018-03-02] MEDS: Simvastatin 40 MG Tab PO SCH (08:49)
[2018-03-02] MEDS: Megestrol Susp 40 MG/ML 10 ML UD Cup PO SCH (08:49)
[2018-03-02] MEDS: predniSONE 20 MG Tab PO SCH (08:49)
[2018-03-02] MEDS: Potassium Chloride/Sodium Chloride Tab PO SCH ×3 (08:49→21:41)
[2018-03-02] MEDS: Magnesium Oxide 400 MG Tab PO SCH ×2 (08:49→21:39)
[2018-03-02] MEDS: Insulin Aspart 100 Units/ML 3 ML Pen SUBCUT SCH ×4 (08:49→21:40)
[2018-03-02] MEDS: Sertraline 25 MG Tab PO SCH (08:49)
[2018-03-02] MEDS: Saccharomyces Boulardii (Probiotic) 250 MG Cap PO SCH ×2 (08:49→21:38)
[2018-03-02] MEDS: Enoxaparin 30 MG/0.3 ML Syringe SUBCUT SCH (08:50)
[2018-03-02] MEDS ORDERED: Potassium Chloride 10% 20 MEQ/15 ML Soln 30 ML UD Cup PO ONE ×2 (10:00→15:00)
[2018-03-02] MEDS ORDERED: Furosemide 40 MG/4 ML VIAL IVPUSH ONE (16:02)
--- NOTE | 2018-03-02 18:21 | PCM.PN ---
- General Info Date of Service: 03/02/18 Functional Status: Reports: Tolerating Diet, Ambulating (minimal), Urinating - Review of Systems General: Reports: No Symptoms HEENT: Reports: No Symptoms Pulmonary: Reports: No Symptoms Cardiovascular: Reports: No Symptoms Gastrointestinal: Reports: No Symptoms Genitourinary: Reports: No Symptoms Musculoskeletal: Reports: No Symptoms Skin: Reports: No Symptoms Neurological: Reports: No Symptoms Psychiatric: Reports: No Symptoms - Patient Data Vitals - Most Recent: Last Vital Signs Temp 36.7 C 03/02/18 14:09 Pulse 72 03/02/18 14:10 Resp 17 03/02/18 14:09 BP 138/88 03/02/18 14:10 Pulse Ox 95 03/02/18 14:10 Weight - Most Recent: 43.182 kg I&O - Last 24 Hours: Intake & Output 03/02/18 03/02/18 03/02/18 06:59 14:59 22:59 Intake Total 800 120 Output Total 625 Balance 175 120 Lab Results Last 24 Hours: Laboratory Results - last 24 hr 03/01/18 03/02/18 03/02/18 Range/Units 22:20 05:37 05:37 WBC 14.92 H (3.98-10.04) K/mm3 RBC 3.50 L (3.98-5.22) M/mm3 Hgb 9.9 L (11.2-15.7) gm/L Hct 29.8 L (34.1-44.9) % MCV 85.1 (79.4-94.8) fl MCH 28.3 (25.6-32.2) pg MCHC 33.2 (32.2-35.5) g/dl RDW Std Deviation 41.1 (36.4-46.3) fL Plt Count 370 H (182-369) K/mm3 MPV 9.3 L (9.4-12.3) fl Neut % (Auto) 87.5 H (34.0-71.1) % Lymph % (Auto) 5.2 L (19.3-51.7) % [place] % (Auto) 6.8 (4.7-12.5) % Eos % (Auto) 0 L (0.7-5.8) Baso % (Auto) 0.0 L (0.1-1.2) % Neut # (Auto) 13.07 H (1.56-6.13) K/mm3 Lymph # (Auto) 0.77 L (1.18-3.74) K/mm3 [place] # (Auto) 1.01 H (0.24-0.36) K/mm3 Eos # (Auto) 0.00 L (0.04-0.36) K/mm3 Baso # (Auto) 0.00 L (0.01-0.08) K/mm3 Manual Slide Review Abnormal smear Sodium 127 L (136-145) mEq/L Potassium 3.3 L (3.5-5.1) mEq/L Chloride 93 L (98-107) mEq/L Carbon Dioxide 31 (21-32) mEq/L Anion Gap 6.3 (5-15) BUN 17 (7-18) mg/dL Creatinine 0.4 L (0.55-1.02) mg/dL Est Cr Clr Drug Dosing 72.64 mL/min Estimated GFR (MDRD) > 60 (>60) mL/min BUN/Creatinine Ratio 42.5 H (14-18) Glucose 164 H (83-115) mg/dL POC Glucose 225 H (83-110) mg/dL Lactic Acid (0.4-2.0) mmol/L Calcium 7.9 L (8.5-10.1) mg/dL Magnesium 2.1 (1.8-2.4) mg/dl Troponin I 0.035 (0.00-0.056) ng/mL C-Reactive Protein 0.9 (<1.0) mg/dL NT-Pro-B Natriuret Pep (0-450) pg/mL 03/02/18 03/02/18 03/02/18 Range/Units 05:37 05:37 06:13 WBC (3.98-10.04) K/mm3 RBC (3.98-5.22) M/mm3 Hgb (11.2-15.7) gm/L Hct (34.1-44.9) % MCV (79.4-94.8) fl MCH (25.6-32.2) pg MCHC (32.2-35.5) g/dl RDW Std Deviation (36.4-46.3) fL Plt Count (182-369) K/mm3 MPV (9.4-12.3) fl Neut % (Auto) (34.0-71.1) % Lymph % (Auto) (19.3-51.7) % [place] % (Auto) (4.7-12.5) % Eos % (Auto) (0.7-5.8) Baso % (Auto) (0.1-1.2) % Neut # (Auto) (1.56-6.13) K/mm3 Lymph # (Auto) (1.18-3.74) K/mm3 [place] # (Auto) (0.24-0.36) K/mm3 Eos # (Auto) (0.04-0.36) K/mm3 Baso # (Auto) (0.01-0.08) K/mm3 Manual Slide Review Sodium (136-145) mEq/L Potassium (3.5-5.1) mEq/L Chloride (98-107) mEq/L Carbon Dioxide (21-32) mEq/L Anion Gap (5-15) BUN (7-18) mg/dL Creatinine (0.55-1.02) mg/dL Est Cr Clr Drug Dosing mL/min Estimated GFR (MDRD) (>60) mL/min BUN/Creatinine Ratio (14-18) Glucose (83-115) mg/dL POC Glucose 162 H (83-110) mg/dL Lactic Acid 1.1 (0.4-2.0) mmol/L Calcium (8.5-10.1) mg/dL Magnesium (1.8-2.4) mg/dl Troponin I (0.00-0.056) ng/mL C-Reactive Protein (<1.0) mg/dL NT-Pro-B Natriuret Pep 7132 H (0-450) pg/mL 03/02/18 03/02/18 Range/Units 11:15 16:27 WBC (3.98-10.04) K/mm3 RBC (3.98-5.22) M/mm3 Hgb (11.2-15.7) gm/L Hct (34.1-44.9) % MCV (79.4-94.8) fl MCH (25.6-32.2) pg MCHC (32.2-35.5) g/dl RDW Std Deviation (36.4-46.3) fL Plt Count (182-369) K/mm3 MPV (9.4-12.3) fl Neut % (Auto) (34.0-71.1) % Lymph % (Auto) (19.3-51.7) % [place] % (Auto) (4.7-12.5) % Eos % (Auto) (0.7-5.8) Baso % (Auto) (0.1-1.2) % Neut # (Auto) (1.56-6.13) K/mm3 Lymph # (Auto) (1.18-3.74) K/mm3 [place] # (Auto) (0.24-0.36) K/mm3 Eos # (Auto) (0.04-0.36) K/mm3 Baso # (Auto) (0.01-0.08) K/mm3 Manual Slide Review Sodium (136-145) mEq/L Potassium (3.5-5.1) mEq/L Chloride (98-107) mEq/L Carbon Dioxide (21-32) mEq/L Anion Gap (5-15) BUN (7-18) mg/dL Creatinine (0.55-1.02) mg/dL Est Cr Clr Drug Dosing mL/min Estimated GFR (MDRD) (>60) mL/min BUN/Creatinine Ratio (14-18) Glucose (83-115) mg/dL POC Glucose 260 H 246 H (83-110) mg/dL Lactic Acid (0.4-2.0) mmol/L Calcium (8.5-10.1) mg/dL Magnesium (1.8-2.4) mg/dl Troponin I (0.00-0.056) ng/mL C-Reactive Protein (<1.0) mg/dL NT-Pro-B Natriuret Pep (0-450) pg/mL Uli Results Last 24 Hours: Microbiology 02/23/18 09:05 Aerobic Blood Culture - Final Blood - Venous NO GROWTH AFTER 7 DAYS Anaerobic Blood Culture - Final Staphylococcus Aureus 02/26/18 05:28 Aerobic Blood Culture - Preliminary Blood - Venous - Lab Draw NO GROWTH AFTER 4 DAYS Anaerobic Blood Culture - Preliminary NO GROWTH AFTER 4 DAYS 02/26/18 05:20 Aerobic Blood Culture - Preliminary Blood - Venous NO GROWTH AFTER 4 DAYS Anaerobic Blood Culture - Preliminary NO GROWTH AFTER 4 DAYS Med Orders - Current: Current Medications Acetaminophen (Tylenol) 650 mg PO Q4H PRN PRN Reason: Pain (Mild 1-3)/fever Hydrocodone Bitart/Acetaminophen ([place] 325-5 Mg) 1 tab PO Q4H PRN PRN Reason: Pain (moderate 4-6) Albuterol/Ipratropium (Duoneb 3.0-0.5 Mg/3 Ml) 3 ml NEB Q4H PRN PRN Reason: Shortness Of Breath/wheezing Bisacodyl (Dulcolax) 5 mg PO DAILY PRN PRN Reason: Constipation Calcium Carbonate/Glycine (Calcium Carbonate) 1,200 mg PO BID [facility] Last Admin: 03/02/18 08:47 Dose: 1,200 mg Dextrose/Water (Dextrose 50% In Water) 50 ml IVPUSH ASDIRECTED PRN PRN Reason: hypoglycemia Docusate Sodium (Colace) 100 mg PO BID PRN PRN Reason: Constipation Enoxaparin Sodium (Lovenox) 30 mg SUBCUT DAILY [facility] Last Admin: 03/02/18 08:50 Dose: 30 mg Famotidine (Pepcid) 20 mg PO DAILY [facility] Last Admin: 03/02/18 08:47 Dose: 20 mg Hydralazine HCl (Apresoline) 10 mg IVPUSH Q6H PRN PRN Reason: Hypertension Insulin Aspart (Novolog) 0 unit SUBCUT QIDACANDBED [facility]; Protocol Last Admin: 03/02/18 17:50 Dose: 2 unit Levofloxacin (Levaquin) 250 mg PO Q24H [facility] Stop: 03/04/18 21:01 Last Admin: 03/01/18 22:21 Dose: 250 mg Magnesium Oxide (Magnesium Oxide) 400 mg PO BID [facility] Last Admin: 03/02/18 08:49 Dose: 400 mg Megestrol Acetate (Megace 40 Mg/Ml Susp) 400 mg PO DAILY [facility] Last Admin: 03/02/18 08:49 Dose: 400 mg Metoprolol Tartrate (Lopressor) 5 mg IVPUSH Q4H PRN PRN Reason: Tachycardia Ondansetron HCl (Zofran Odt) 4 mg PO Q6H PRN PRN Reason: nausea, able to take PO Ondansetron HCl (Zofran) 4 mg IV Q6H PRN PRN Reason: Nausea/Vomiting Oral Electrolytes (Thermotabs) 2 each PO TID [facility] Last Admin: 03/02/18 16:18 Dose: 2 each Polyethylene Glycol (Miralax) 17 gm PO DAILY PRN PRN Reason: Constipation Prednisone (Prednisone) 20 mg PO DAILY [facility] Stop: 03/05/18 09:01 Prednisone (Prednisone) 10 mg PO DAILY [facility] Stop: 03/08/18 09:01 Saccharomyces Boulardii (Florastor) 250 mg PO BID [facility] Last Admin: 03/02/18 08:49 Dose: 250 mg Senna/Docusate Sodium (Senna Plus) 1 tab PO BID PRN PRN Reason: Constipation Sertraline HCl (Zoloft) 25 mg PO DAILY [facility] Last Admin: 03/02/18 08:49 Dose: 25 mg Simvastatin (Zocor) 40 mg PO DAILY [facility] Last Admin: 03/02/18 08:49 Dose: 40 mg Sodium Chloride (Saline Flush) 10 ml FLUSH ASDIRECTED PRN PRN Reason: Keep Vein Open Discontinued Medications Benazepril HCl (Lotensin) 5 mg PO DAILY [facility] Last Admin: 02/24/18 08:36 Dose: 5 mg Famotidine (Pepcid) 20 mg PO BID [facility] Last Admin: 02/25/18 20:35 Dose: 20 mg Furosemide (Lasix) 20 mg IVPUSH NOW ONE Stop: 02/23/18 19:05 Last Admin: 02/23/18 19:25 Dose: 20 mg Furosemide (Lasix) 20 mg IVPUSH NOW ONE Stop: 02/24/18 09:38 Last Admin: 02/24/18 10:05 Dose: 20 mg Furosemide (Lasix) 20 mg IVPUSH NOW ONE Stop: 02/27/18 09:11 Last Admin: 02/27/18 09:37 Dose: 20 mg Furosemide (Lasix) 20 mg IVPUSH DAILY [facility] Stop: 03/01/18 09:00 Last Admin: 03/01/18 08:18 Dose: 20 mg Furosemide (Lasix) 20 mg IVPUSH NOW ONE Stop: 02/28/18 14:01 Last Admin: 02/28/18 13:54 Dose: 20 mg Furosemide (Lasix) 20 mg IVPUSH ONETIME ONE Stop: 03/01/18 15:01 Last Admin: 03/01/18 14:29 Dose: 20 mg Furosemide (Lasix) 20 mg IVPUSH NOW ONE Stop: 03/02/18 16:03 Last Admin: 03/02/18 16:22 Dose: 20 mg Sodium Chloride (Normal Saline) 1,000 mls @ 250 mls/hr IV ASDIRECTED [facility] Last Admin: 02/23/18 17:50 Dose: 250 mls/hr Ceftriaxone Sodium 2 gm/ (Sodium Chloride) 100 mls @ 100 mls/hr IV Q24H [facility] Last Admin: 02/23/18 10:34 Dose: 100 mls/hr Magnesium Sulfate 2 gm/ Premix 50 mls @ 25 mls/hr IV ONETIME ONE Stop: 02/23/18 14:27 Last Admin: 02/23/18 13:26 Dose: 25 mls/hr Ceftriaxone Sodium 2 gm/ (Sodium Chloride) 100 mls @ 100 mls/hr IV Q24H [facility] Ceftriaxone Sodium 2 gm/ (Sodium Chloride) 100 mls @ 100 mls/hr IV Q24H [facility] Last Admin: 02/23/18 15:42 Dose: Not Given Ceftriaxone Sodium 2 gm/ (Sodium Chloride) 100 mls @ 100 mls/hr IV Q24H [facility] Last Admin: 02/25/18 11:31 Dose: 100 mls/hr Dextrose/Sodium Chloride (Dextrose 5%-Normal Saline) 1,000 mls @ 100 mls/hr IV ASDIRECTED [facility] Stop: 02/24/18 05:14 Last Admin: 02/23/18 19:37 Dose: 100 mls/hr Dextrose/Sodium Chloride (Dextrose 5%-Normal Saline) 1,000 mls @ 75 mls/hr IV ASDIRECTED [facility] Potassium Chloride 10 meq/ (Premix) 100 mls @ 100 mls/hr IV Q1H [facility] Stop: 02/24/18 12:44 Magnesium Sulfate 2 gm/ Premix 50 mls @ 25 mls/hr IV ONETIME ONE Stop: 02/24/18 11:35 Last Admin: 02/24/18 09:43 Dose: Not Given Potassium Chloride 10 meq/ (Premix) 100 mls @ 100 mls/hr IV Q1H [facility] Stop: 02/24/18 15:59 Last Admin: 02/24/18 15:47 Dose: Not Given Magnesium Sulfate 2 gm/ Premix 50 mls @ 25 mls/hr IV ONETIME ONE Stop: 02/24/18 12:59 Last Admin: 02/24/18 11:09 Dose: 25 mls/hr Doxycycline Hyclate 100 mg/ (Sodium Chloride) 100 mls @ 100 mls/hr IV Q12H [facility] Last Admin: 02/25/18 04:18 Dose: 100 mls/hr Levofloxacin/Dextrose 500 mg/ (Premix) 100 mls @ 100 mls/hr IV ONETIME ONE Stop: 02/25/18 22:59 Last Admin: 02/25/18 21:08 Dose: 100 mls/hr Levofloxacin/Dextrose 250 mg/ (Premix) 50 mls @ 50 mls/hr IV Q24H [facility] Last Admin: 02/26/18 21:05 Dose: 50 mls/hr Magnesium Sulfate 4 gm/ Premix 100 mls @ 300 mls/hr IV ONETIME ONE Stop: 03/01/18 11:21 Last Admin: 03/01/18 12:04 Dose: Not Given Magnesium Sulfate 4 gm/ Premix 100 mls @ 25 mls/hr IV ONETIME ONE Stop: 03/01/18 16:14 Last Admin: 03/01/18 12:04 Dose: 25 mls/hr Magnesium Oxide (Magnesium Oxide) 400 mg PO Q4H [facility] Stop: 02/27/18 13:16 Last Admin: 02/27/18 13:20 Dose: 400 mg Magnesium Oxide (Magnesium Oxide) 400 mg PO ONETIME ONE Stop: 02/28/18 08:21 Last Admin: 02/28/18 08:34 Dose: 400 mg Methylprednisolone Sodium Succinate (Solu-Medrol) 60 mg IVPUSH Q12H [facility] Last Admin: 02/25/18 22:31 Dose: 60 mg Methylprednisolone Sodium Succinate (Solu-Medrol) 60 mg IVPUSH Q24H [facility] Last Admin: 02/27/18 21:57 Dose: 60 mg Morphine Sulfate (Morphine) 0.5 mg IVPUSH Q2H PRN PRN Reason: Pain (severe 7-10) Stop: 02/24/18 12:25 Ondansetron HCl (Zofran) 4 mg IVPUSH ONETIME ONE Stop: 02/23/18 08:33 Last Admin: 02/23/18 08:53 Dose: 4 mg Oral Electrolytes (Thermotabs) 1 each PO BID [facility] Last Admin: 02/28/18 08:22 Dose: 1 each Oral Electrolytes (Thermotabs) 2 each PO BID [facility] Last Admin: 03/01/18 08:16 Dose: 2 each Potassium Chloride (Klor-Con M20) 40 meq PO ONETIME ONE Stop: 02/24/18 09:32 Last Admin: 02/24/18 09:51 Dose: 40 meq Potassium Chloride (Potassium Chloride Solution) 40 meq PO ONETIME ONE Stop: 02/24/18 15:46 Last Admin: 02/24/18 16:02 Dose: 40 meq Potassium Chloride (Potassium Chloride) 40 meq PO ONETIME ONE Stop: 03/02/18 10:01 Last Admin: 03/02/18 11:20 Dose: 40 meq Potassium Chloride (Potassium Chloride) 40 meq PO ONETIME ONE Stop: 03/02/18 15:01 Last Admin: 03/02/18 16:18 Dose: 40 meq Prednisone (Prednisone) 0 mg PO .Daily Taper [facility]; Taper Stop: 03/09/18 10:44 Prednisone (Prednisone) 40 mg PO DAILY [facility] Stop: 03/02/18 09:01 Last Admin: 03/02/18 08:49 Dose: 40 mg Vancomycin HCl (Pharmacy To Dose - Vancomycin) 1 dose .XX ASDIRECTED [facility] - Exam Quality Assessment: DVT Prophylaxis General: Alert, Oriented, No Acute Distress HEENT: Pupils Equal, Pupils Reactive, EOMI Neck: Trachea Midline, No JVD Lungs: Normal Respiratory Effort Cardiovascular: Regular Rate GI/Abdominal Exam: Normal Bowel Sounds, Soft, Non-Tender, No Organomegaly, No Distention (Female) Exam: Deferred Back Exam: Normal Inspection Extremities: Normal Inspection, Non-Tender Skin: Warm Neurological: No New Focal Deficit Psy/Mental Status: Alert, Depressed - Problem List Review Problem List Initiated/Reviewed/Updated: Yes - Plan Plan:: I/P: Acute: Acute Pneumonia, bacterial -Sputum Culture positive for gram positive cocci, most likely Staph Aureus ( same as blood culture) -Mycoplasma, Influenza, Strep pneumonia negative -WBC 23.94-->17.47-->15.43-->16.27-->14.31-->15.58 -CRP 22.2-->20.9-->13.7-->6-->3.2 -->2.4 -Repeat CXR shows nothing acute -Noted on CT scan (12/24/17) -1. Fairly severe interstitial fibrosis -2. More focal area of density within both posterior lung bases. Without previous study, uncertain if findings represent change from chronic aspiration, pneumonia, or more focal areas of scarring. -3. Nodular density (2.1 cm) within approximate superior segment of the left lower lung with similar differential, although difficult to exclude a neoplastic nodule. -Recommend follow-up CT without contrast in 4 months -Recommend establish with dresser tender outpatient after discharge -Solumedrol --> Prednisone taper -Start Levoquin to cover all organisms -RT/Nebs/IS/FV Bacteremia -Blood culture--> Staph Aureus -Different organism than urine, most likely 2/2 Pneumonia -Add doxycycline for coverage--> D/C, starting Levoquin today to cover all organisms -Repeat blood cultures in 48 hours --negative x3 days. -Contact precautions UTI -Reports weakness, weight loss, malaise, but no urinary symptoms, no CVA tenderness, no fever -UA unimpressive with no leukocyte esterase or nitrite, 40-50 WBC, 20-30 RBC , but many bacteria -Culture --> positive for Klebseilla Pneumoniae and Enterococcus Faecalis -WBC 23.94-->17.47-->15.43->16.27-->14.31-->15.58 -CRP 22.2-->20.9-->13.7--> 6-->3.2-->2.4 -Lactic acid 1.5-->0.9-->1.4-->1.1-->2.1 -Repeat Lactic acid at noon -->3.7 -IV fluids as ordered -Rocephin 2gm Q24HR--> D/C; Start Levoquin to cover bacteria found in Culture -Blood cultures as above Failure to thrive -Assisted living resident -Has reportedly needed 2 person assistance for last several days -10-12 lb weight loss -Poor oral intake, weakness--> Zoloft 25mg to help with appetite and transitional sadness -PT/OT -SW consult -Hospitalized last year for falls/Bronchitis -Old records indicate chronic unsteady gait -Armored Machine Operator consult Heart failure/Type II TX -No edema, CXR shows no pulmonary congestion, Repeat CXR negative as well -BNP 1972--> 5357-->5267-->81412-->75727-->30588-->87978 -Troponin 0.025-->0.076-->0.060, most likely Type II TX -Clinically unremarkable, No weight gain, no pedal edema, no chest pain. -No prior echo on file -Echo (02/24/18)--> LVEF 65-70%, Severe Aortic Stenosis, Moderate AVR/TVR, Mild MR, Impaired relaxation (Grade I) patter of LV diastolic filling, RV systolic pressure mod-severely elevated -12-lead suggests right atrial and left ventricular hypertrophy -3/6 pansystolic murmur suggesting aortic stenosis Electrolyte abnormalities -Hypokalemia -Hypomagnesemia -Hypocalcemia -2/2 inadequate intake -Supplement -Armored Machine Operator consulted Chronic: HTN Type II DM - SS insulin, QID glucose checks Hypomagnesemia HLD Pulmonary fibrosis Pulmonary nodule --> f/u with dresser tender, repeat CT w/o contrast in 4 months Plan: Admit to medical floor on telemetry Other orders as indicated above Routine AM labs DVT prophylaxis: Lovenox, MANUELA hose GI prophylaxis: Pepcid RT/PT/OT CM/SW for discharge planning--> PT AND FAMILY HAVE DECIDED ON [facility] FOR PLACEMENT; Dr. Stone is new PCP Home medications as ordered Most likely D/C Saturday Code Status: Full code; PCP: Dr. Stone PATIENT IS OBSTINATE AND RARELY AMBULATES EXCEPT TO THE RESTROOM. LOS >96 hours due to slow response to treatment. DC 03/03/18
[2018-03-02] MEDS: Levofloxacin 250 MG Tab PO SCH (21:39)
[2018-03-03] MEDS: Insulin Aspart 100 Units/ML 3 ML Pen SUBCUT SCH ×2 (06:18→11:28)
[2018-03-03] MEDS: Saccharomyces Boulardii (Probiotic) 250 MG Cap PO SCH (08:14)
[2018-03-03] MEDS: Sertraline 25 MG Tab PO SCH (08:14)
[2018-03-03] MEDS: Calcium Carbonate 600 MG Tab PO SCH (08:14)
[2018-03-03] MEDS: Magnesium Oxide 400 MG Tab PO SCH (08:14)
[2018-03-03] MEDS: Simvastatin 40 MG Tab PO SCH (08:14)
[2018-03-03] MEDS: Megestrol Susp 40 MG/ML 10 ML UD Cup PO SCH (08:14)
[2018-03-03] MEDS: Enoxaparin 30 MG/0.3 ML Syringe SUBCUT SCH (08:14)
[2018-03-03] MEDS: Famotidine 20 MG Tab PO SCH (08:14)
[2018-03-03] MEDS: Potassium Chloride/Sodium Chloride Tab PO SCH (08:29)
[2018-03-03] MEDS ORDERED: predniSONE 20 MG Tab PO SCH (09:00)
[2018-03-03 09:07] VITALS: BP 113/68
--- NOTE | 2018-03-03 09:17 | PCM.DCSUM1 ---
Discharge Summary - Hospital Course HPI Initial Comments: 82-year-old female presents to the ED per ambulance from [facility]. Patient was aided to the toilet by staff and apparently while on the toilet had a syncopal event where she lost consciousness. She was caught by staff and therefore did not fall directly to the floor. She was unresponsive though for good minute and a half or more. When she was laid down to the floor her blood pressure came up and she regained consciousness and was able to speak normally but this took a good for 5 minutes. She's been eating very poorly and breath smells strongly of ketones. She was seen here Saturday i.e. 3 days ago and received IV fluids with an improvement in her status. I am not sure what investigations were completed at that time and will look at the old chart. Essentially she's failure to thrive with a known 10-12, weight loss over the last 2-3 weeks. She essentially cannot eat. Apparently he's not had diarrhea or vomiting. She responded to paramedics treatment with IV fluids of 150 mils normal saline and she was able to speak and move all limbs with no evidence of CVA. She is now alert and oriented and able to answer all questions. Patient is a type II diabetic. Blood sugar on scene was 152. - Discharge Data Discharge Date: 03/03/18 (ADMIT 02/23/18) Discharge Disposition: DC/Tfer to SNF 03 Condition: Good - Discharge Diagnosis/Problem(s) (1) Bacteremia SNOMED Code(s): 3147828 ICD Code: R78.81 - BACTEREMIA Status: Acute Priority: High Current Visit: Yes (2) Congestive heart failure SNOMED Code(s): 68556243 ICD Code: I50.9 - HEART FAILURE, UNSPECIFIED Status: Acute Priority: High Current Visit: Yes Qualifiers: Heart failure type: diastolic Heart failure chronicity: acute on chronic Qualified Code(s): I50.33 - Acute on chronic diastolic (congestive) heart failure (3) Dehydration SNOMED Code(s): 40885969 ICD Code: E86.0 - DEHYDRATION Status: Acute Priority: High Current Visit: Yes (4) Failure to thrive in adult SNOMED Code(s): 782682332 ICD Code: R62.7 - ADULT FAILURE TO THRIVE Status: Acute Priority: High Current Visit: Yes (5) Hypocalcemia SNOMED Code(s): 7299009 ICD Code: E83.51 - HYPOCALCEMIA Status: Acute Priority: High Current Visit: Yes (6) Hypokalemia SNOMED Code(s): 73609267 ICD Code: E87.6 - HYPOKALEMIA Status: Acute Priority: High Current Visit: Yes (7) Hypomagnesemia SNOMED Code(s): 173732963 ICD Code: E83.42 - HYPOMAGNESEMIA Status: Acute Priority: High Current Visit: Yes (8) Leukocytosis SNOMED Code(s): 836382268, 404398167 ICD Code: D72.829 - ELEVATED WHITE BLOOD CELL COUNT, UNSPECIFIED Status: Acute Priority: High Current Visit: Yes Qualifiers: Leukocytosis type: unspecified Qualified Code(s): D72.829 - Elevated white blood cell count, unspecified (9) Metabolic acidosis SNOMED Code(s): 13117915 ICD Code: E87.2 - ACIDOSIS Status: Acute Priority: High Current Visit: Yes (10) Pulmonary fibrosis determined by high resolution computed tomography SNOMED Code(s): 00189953, 073913869 ICD Code: J84.10 - PULMONARY FIBROSIS, UNSPECIFIED Status: Acute Priority : High Current Visit: Yes (11) Upper urinary tract infection SNOMED Code(s): 913613624 ICD Code: N39.0 - URINARY TRACT INFECTION, SITE NOT SPECIFIED Status: Acute Priority: High Current Visit: Yes (12) Weakness SNOMED Code(s): 04800940 ICD Code: R53.1 - WEAKNESS Status: Acute Priority: High Current Visit: Yes (13) Weight loss, unintentional SNOMED Code(s): 790613170 ICD Code: R63.4 - ABNORMAL WEIGHT LOSS Status: Acute Priority: High Current Visit: Yes (14) Nausea SNOMED Code(s): 274269974 ICD Code: R11.0 - NAUSEA Status: Resolved Priority: High Current Visit : Yes (15) Pneumonia SNOMED Code(s): 040626389 ICD Code: J18.9 - PNEUMONIA, UNSPECIFIED ORGANISM Status: Acute Priority : High Current Visit: Yes Qualifiers: Pneumonia type: due to unspecified organism Laterality: unspecified laterality Lung location: unspecified part of lung Qualified Code(s): J18.9 - Pneumonia, unspecified organism - Patient Summary/Data Operative Procedure(s) Performed: none Complications: none Consults: Consultations 02/23/18 12:23 Consult to Case Management [CONS] Routine Consult to Java Sybase Developer [CONS] Routine Consult to Molding Sander [CONS] Routine OT Evaluation and Treatment [CONS] Routine PT Evaluation and Treatment [CONS] Routine Labs Pending at D/C: none Recommended Follow-up Testing/Procedures: F/U with PCP in 7-10 days: * Electrolyte panel in 5 days, check hyponatremia and potassium levels. * Other labs to be done: Glucose check (elevated d/t prednisone use and infection), Repeat CBC for anemia, Repeat BNP (7071 today) * D/C'd home with new medications, f/u with PCP for continued prescriptions: -Levoquin x2 days and Prednisone taper x6 days to complete PNA and UTI treatment -Electrolyte abnormalities: Calcium Carbonate for hypocalcemia, Thermotabs x5 days for hyponatremia -Zoloft for appetite and to help through transition to [facility] Planned Operative Procedure(s) after DC: none Hospital Course: I/P: Acute: Acute Pneumonia, bacterial, improved to resolved -Sputum Culture positive for gram positive cocci, most likely Staph Aureus ( same as blood culture) -Mycoplasma, Influenza, Strep pneumonia negative -WBC 23.94-->17.47-->15.43-->16.27-->14.31-->15.58-->14.83 -CRP 22.2-->20.9-->13.7-->6-->3.2 -->2.4-->0.8 -Repeat CXR shows nothing acute -Noted on CT scan (12/24/17) -1. Fairly severe interstitial fibrosis -2. More focal area of density within both posterior lung bases. Without previous study, uncertain if findings represent change from chronic aspiration, pneumonia, or more focal areas of scarring. -3. Nodular density (2.1 cm) within approximate superior segment of the left lower lung with similar differential, although difficult to exclude a neoplastic nodule. -Recommend follow-up CT without contrast in 4 months -Recommend establish with mingler operator outpatient after discharge -Solumedrol --> Prednisone taper at home x6 days -Start Levoquin to cover all organisms--> continue x2 days after D/C -RT/Nebs/IS/FV Bacteremia, improved to resolved -Blood culture--> Staph Aureus -Different organism than urine, most likely 2/2 Pneumonia -Add doxycycline for coverage--> D/C, starting Levoquin today to cover all organisms -Repeat blood cultures in 48 hours -->negative after 5 days growth -Contact precautions UTI, improved to resolved -Reports weakness, weight loss, malaise, but no urinary symptoms, no CVA tenderness, no fever -UA unimpressive with no leukocyte esterase or nitrite, 40-50 WBC, 20-30 RBC , but many bacteria -Culture --> positive for Klebseilla Pneumoniae and Enterococcus Faecalis -WBC 23.94-->17.47-->15.43->16.27-->14.31-->15.58-->14.83 -CRP 22.2-->20.9-->13.7--> 6-->3.2-->2.4-->0.8 -Lactic acid 1.5-->0.9-->1.4-->1.1-->2.1 -->3.7-->1.3 -IV fluids as ordered -Rocephin 2gm Q24HR--> D/C; Start Levoquin to cover bacteria found in Culture -Blood cultures as above Failure to thrive -Assisted living resident -Has reportedly needed 2 person assistance for last several days -10-12 lb weight loss -Poor oral intake, weakness--> Zoloft 25mg to help with appetite and transitional sadness -PT/OT -SW consult -Hospitalized last year for falls/Bronchitis -Old records indicate chronic unsteady gait -Java Sybase Developer consult Heart failure/Type II SD -No edema, CXR shows no pulmonary congestion, Repeat CXR negative as well -BNP 1972--> 5357-->5267-->75986-->91517-->58462-->55067-->7071 -Troponin 0.025-->0.076-->0.060-->0.030 (most likely Type II SD) -Clinically unremarkable, No weight gain, no pedal edema, no chest pain. -No prior echo on file -Echo (02/24/18)--> LVEF 65-70%, Severe Aortic Stenosis, Moderate AVR/TVR, Mild MR, Impaired relaxation (Grade I) patter of LV diastolic filling, RV systolic pressure mod-severely elevated -12-lead suggests right atrial and left ventricular hypertrophy -3/6 pansystolic murmur suggesting aortic stenosis Electrolyte abnormalities, improved -Hypokalemia -Hypomagnesemia -Hypocalcemia -2/2 inadequate intake -Supplement -Java Sybase Developer consulted Chronic: HTN Type II DM - SS insulin, QID glucose checks Hypomagnesemia HLD Pulmonary fibrosis Pulmonary nodule --> f/u with mingler operator, repeat CT w/o contrast in 4 months Plan: Admit to medical floor on telemetry Other orders as indicated above Routine AM labs DVT prophylaxis: Lovenox, MANUELA hose GI prophylaxis: Pepcid RT/PT/OT CM/SW for discharge planning--> PT AND FAMILY HAVE DECIDED ON [facility] FOR PLACEMENT; Dr. Stone is new PCP Home medications as ordered Will D/C today Code Status: Full code; PCP: Dr. Stone PATIENT IS OBSTINATE AND RARELY AMBULATES EXCEPT TO THE RESTROOM. LOS >96 hours due to slow response to treatment. DC 03/03/18 Rosa has recovered quite well. She had multiple tests done. So far all have been negative except for UTI, sepsis, and PNA. This has since resolved. Repeat blood cultures have been negative. She should follow-up with her primary care provider in 7-10 days. She was discharged home on new medications: Levoquin x2 days and Prednisone taper x6 days to complete PNA and UTI treatment, Calcium Carbonate for hypocalcemia, Thermotabs x5 days for hyponatremia, Zoloft for appetite and to help through transition to [facility]. Her electrolytes and glucose have been abnormal here and she also has been anemic- an electrolyte panel should be rechecked in 5 days with PCP as well as another glucose and CBC. Also needs a repeat BNP (7071 today). This can be worked up further by her PCP. She will be discharged to SNF ([facility]) today. - Patient Instructions Diet: Heart Healthy Diet, Diabetic Diet, Renal Diet Activity: As Tolerated Driving: Do Not Drive Showering/Bathing: May Shower Notify Provider of: Fever, Increased Pain, Nausea and/or Vomiting - Discharge Plan Prescriptions/Med Rec: RX: Calcium Carbonate 1,200 mg PO BID #60 tablet RX: Levofloxacin [Levaquin] 250 mg PO Q24H #2 tablet Potassium Chloride/NaCl [Thermotabs] 2 each PO BID #10 tab RX: Prednisone [IJD: predniSONE] 20 mg PO DAILY #3 tablet RX: predniSONE 10 mg PO DAILY #3 tablet RX: Saccharomyces Boulardii [Florastor] 250 mg PO BID #20 cap RX: Sertraline [Zoloft] 25 mg PO DAILY #60 tablet Home Medications: Home Meds RX: Simvastatin [Zocor] 40 mg PO DAILY 04/08/17 [History] RX: Magnesium Oxide 400 mg PO BID #30 tablet 04/10/17 [Rx] RX: Acetaminophen [Tylenol] 325 mg PO Q8HR PRN MDD 2 tablets 02/21/18 [History] RX: Benazepril [Lotensin] 5 mg PO DAILY 02/21/18 [History] RX: Megestrol [Megace 40 MG/ML Susp] 10 ml PO DAILY #600 ml 02/21/18 [Rx] RX: metFORMIN HCl [Metformin HCl] 500 mg PO DAILY 02/21/18 [History] Potassium Chloride/NaCl [Thermotabs] 2 each PO BID #10 tab 03/03/18 [Rx] RX: Calcium Carbonate 1,200 mg PO BID #60 tablet 03/03/18 [Rx] RX: Levofloxacin [Levaquin] 250 mg PO Q24H #2 tablet 03/03/18 [Rx] RX: Prednisone [IJD: predniSONE] 20 mg PO DAILY #3 tablet 03/03/18 [Rx] RX: Saccharomyces Boulardii [Florastor] 250 mg PO BID #20 cap 03/03/18 [Rx] RX: Sertraline [Zoloft] 25 mg PO DAILY #60 tablet 03/03/18 [Rx] RX: predniSONE 10 mg PO DAILY #3 tablet 03/03/18 [Rx] Patient Handouts: Hyponatremia, Onbx-gr-Rwtw, Weakness, Hlpg-wh-Duos, Urinary Tract Infection, Adult, Smao-fe-Vajm, Dehydration, Adult, Mkwf-rm-Drsl, Acute Bronchitis, Adult, Yyqj-ul-Eohy, Heart Failure, Opgv-bm-Crsr, Failure to Thrive , Adult, Nazr-hp-Qugb, Bacteremia, Community-Acquired Pneumonia, Adult, Easy-to- Read Referrals: Manuel Stone MD [Physician] - (Please call and schedule a post-hospital follow -up appointment with your primary care doctor, Dr. Stone, within 7 to 10 days. Labs should be drawn within 1 week (see script) and forwarded to Dr. Stone for review. ) - Discharge Summary/Plan Comment DC Time >30 min.: Yes (40) - General Info Date of Service: 03/03/18 Admission Dx/Problem (Free Text: Admission Diagnosis/Problem Admission Diagnosis/Problem Sepsis due to urinary tract infection Subjective Update: In to see Rosa today. She is lying in bed. Overall she is doing well. She has no complaints except sitting in chair. She has been sleeping well. Good appetite. She has been refusing to ambulate other than to go to the bathroom. Pain is controlled. Urinating. Incentive Spirometry. No concerns from nursing. She is ready to be D/C'd to [facility] today. Functional Status: Reports: Pain Controlled, Tolerating Diet, Ambulating, Urinating - Review of Systems General: Reports: Weakness, Fatigue. Denies: Fever, Chills HEENT: Reports: No Symptoms Pulmonary: Reports: Cough (improved). Denies: Shortness of Breath, Pleuritic Chest Pain Cardiovascular: Reports: No Symptoms. Denies: Chest Pain, Palpitations, Dyspnea on Exertion, Edema Gastrointestinal: Reports: No Symptoms. Denies: Abdominal Pain, Diarrhea, Nausea, Vomiting Genitourinary: Reports: No Symptoms. Denies: Dysuria, Frequency, Burning, Pain , Urgency Musculoskeletal: Reports: No Symptoms Skin: Reports: No Symptoms Neurological: Reports: No Symptoms Psychiatric: Reports: No Symptoms - Patient Data Vitals - Most Recent: Last Vital Signs Temp 98.4 F 03/03/18 07:49 Pulse 77 03/03/18 07:49 Resp 22 H 03/03/18 07:49 BP 113/68 03/03/18 08:24 Pulse Ox 95 03/03/18 07:49 Weight - Most Recent: 95 lb 2 oz I&O - Last 24 hours: Intake & Output 03/02/18 03/03/18 03/03/18 22:59 06:59 14:59 Intake Total 470 300 Output Total 600 850 Balance -130 -550 Lab Results - Last 24 hrs: Laboratory Results - last 24 hr 03/02/18 03/02/18 03/02/18 Range/Units 11:15 16:27 21:08 WBC (3.98-10.04) K/mm3 RBC (3.98-5.22) M/mm3 Hgb (11.2-15.7) gm/L Hct (34.1-44.9) % MCV (79.4-94.8) fl MCH (25.6-32.2) pg MCHC (32.2-35.5) g/dl RDW Std Deviation (36.4-46.3) fL Plt Count (182-369) K/mm3 MPV (9.4-12.3) fl Neut % (Auto) (34.0-71.1) % Lymph % (Auto) (19.3-51.7) % [place] % (Auto) (4.7-12.5) % Eos % (Auto) (0.7-5.8) Baso % (Auto) (0.1-1.2) % Neut # (Auto) (1.56-6.13) K/mm3 Lymph # (Auto) (1.18-3.74) K/mm3 [place] # (Auto) (0.24-0.36) K/mm3 Eos # (Auto) (0.04-0.36) K/mm3 Baso # (Auto) (0.01-0.08) K/mm3 Manual Slide Review Sodium (136-145) mEq/L Potassium (3.5-5.1) mEq/L Chloride (98-107) mEq/L Carbon Dioxide (21-32) mEq/L Anion Gap (5-15) BUN (7-18) mg/dL Creatinine (0.55-1.02) mg/dL Est Cr Clr Drug Dosing mL/min Estimated GFR (MDRD) (>60) mL/min BUN/Creatinine Ratio (14-18) Glucose (83-115) mg/dL POC Glucose 260 H 246 H 210 H (83-110) mg/dL Lactic Acid (0.4-2.0) mmol/L Calcium (8.5-10.1) mg/dL Magnesium (1.8-2.4) mg/dl Troponin I (0.00-0.056) ng/mL C-Reactive Protein (<1.0) mg/dL NT-Pro-B Natriuret Pep (0-450) pg/mL 03/03/18 03/03/18 03/03/18 Range/Units 05:22 05:22 05:22 WBC 14.83 H (3.98-10.04) K/mm3 RBC 3.58 L (3.98-5.22) M/mm3 Hgb 10.5 L (11.2-15.7) gm/L Hct 30.7 L (34.1-44.9) % MCV 85.8 (79.4-94.8) fl MCH 29.3 (25.6-32.2) pg MCHC 34.2 (32.2-35.5) g/dl RDW Std Deviation 41.2 (36.4-46.3) fL Plt Count 353 (182-369) K/mm3 MPV 9.5 (9.4-12.3) fl Neut % (Auto) 87.7 H (34.0-71.1) % Lymph % (Auto) 4.4 L (19.3-51.7) % [place] % (Auto) 7.5 (4.7-12.5) % Eos % (Auto) 0 L (0.7-5.8) Baso % (Auto) 0.0 L (0.1-1.2) % Neut # (Auto) 13.01 H (1.56-6.13) K/mm3 Lymph # (Auto) 0.65 L (1.18-3.74) K/mm3 [place] # (Auto) 1.11 H (0.24-0.36) K/mm3 Eos # (Auto) 0.00 L (0.04-0.36) K/mm3 Baso # (Auto) 0.00 L (0.01-0.08) K/mm3 Manual Slide Review Abnormal smear Sodium 125 L (136-145) mEq/L Potassium 4.9 (3.5-5.1) mEq/L Chloride 94 L (98-107) mEq/L Carbon Dioxide 30 (21-32) mEq/L Anion Gap 5.9 (5-15) BUN 17 (7-18) mg/dL Creatinine 0.5 L (0.55-1.02) mg/dL Est Cr Clr Drug Dosing 58.07 mL/min Estimated GFR (MDRD) > 60 (>60) mL/min BUN/Creatinine Ratio 34.0 H (14-18) Glucose 140 H (83-115) mg/dL POC Glucose (83-110) mg/dL Lactic Acid (0.4-2.0) mmol/L Calcium 8.2 L (8.5-10.1) mg/dL Magnesium 1.8 (1.8-2.4) mg/dl Troponin I 0.030 (0.00-0.056) ng/mL C-Reactive Protein 0.8 (<1.0) mg/dL NT-Pro-B Natriuret Pep 7071 H (0-450) pg/mL 03/03/18 03/03/18 Range/Units 05:22 06:11 WBC (3.98-10.04) K/mm3 RBC (3.98-5.22) M/mm3 Hgb (11.2-15.7) gm/L Hct (34.1-44.9) % MCV (79.4-94.8) fl MCH (25.6-32.2) pg MCHC (32.2-35.5) g/dl RDW Std Deviation (36.4-46.3) fL Plt Count (182-369) K/mm3 MPV (9.4-12.3) fl Neut % (Auto) (34.0-71.1) % Lymph % (Auto) (19.3-51.7) % [place] % (Auto) (4.7-12.5) % Eos % (Auto) (0.7-5.8) Baso % (Auto) (0.1-1.2) % Neut # (Auto) (1.56-6.13) K/mm3 Lymph # (Auto) (1.18-3.74) K/mm3 [place] # (Auto) (0.24-0.36) K/mm3 Eos # (Auto) (0.04-0.36) K/mm3 Baso # (Auto) (0.01-0.08) K/mm3 Manual Slide Review Sodium (136-145) mEq/L Potassium (3.5-5.1) mEq/L Chloride (98-107) mEq/L Carbon Dioxide (21-32) mEq/L Anion Gap (5-15) BUN (7-18) mg/dL Creatinine (0.55-1.02) mg/dL Est Cr Clr Drug Dosing mL/min Estimated GFR (MDRD) (>60) mL/min BUN/Creatinine Ratio (14-18) Glucose (83-115) mg/dL POC Glucose 142 H (83-110) mg/dL Lactic Acid 1.3 (0.4-2.0) mmol/L Calcium (8.5-10.1) mg/dL Magnesium (1.8-2.4) mg/dl Troponin I (0.00-0.056) ng/mL C-Reactive Protein (<1.0) mg/dL NT-Pro-B Natriuret Pep (0-450) pg/mL MICAH Results - Last 24 hrs: Microbiology 02/26/18 05:28 Aerobic Blood Culture - Preliminary Blood - Venous - Lab Draw NO GROWTH AFTER 5 DAYS Anaerobic Blood Culture - Preliminary NO GROWTH AFTER 5 DAYS 02/26/18 05:20 Aerobic Blood Culture - Preliminary Blood - Venous NO GROWTH AFTER 5 DAYS Anaerobic Blood Culture - Preliminary NO GROWTH AFTER 5 DAYS 02/23/18 09:05 Aerobic Blood Culture - Final Blood - Venous NO GROWTH AFTER 7 DAYS Anaerobic Blood Culture - Final Staphylococcus Aureus Med Orders - Current: Current Medications Acetaminophen (Tylenol) 650 mg PO Q4H PRN PRN Reason: Pain (Mild 1-3)/fever Last Admin: 03/02/18 21:39 Dose: 650 mg Hydrocodone Bitart/Acetaminophen ([place] 325-5 Mg) 1 tab PO Q4H PRN PRN Reason: Pain (moderate 4-6) Albuterol/Ipratropium (Duoneb 3.0-0.5 Mg/3 Ml) 3 ml NEB Q4H PRN PRN Reason: Shortness Of Breath/wheezing Bisacodyl (Dulcolax) 5 mg PO DAILY PRN PRN Reason: Constipation Calcium Carbonate/Glycine (Calcium Carbonate) 1,200 mg PO BID [place] Last Admin: 03/03/18 08:14 Dose: 1,200 mg Dextrose/Water (Dextrose 50% In Water) 50 ml IVPUSH ASDIRECTED PRN PRN Reason: hypoglycemia Docusate Sodium (Colace) 100 mg PO BID PRN PRN Reason: Constipation Enoxaparin Sodium (Lovenox) 30 mg SUBCUT DAILY [facility] Last Admin: 03/03/18 08:14 Dose: 30 mg Famotidine (Pepcid) 20 mg PO DAILY [facility] Last Admin: 03/03/18 08:14 Dose: 20 mg Hydralazine HCl (Apresoline) 10 mg IVPUSH Q6H PRN PRN Reason: Hypertension Insulin Aspart (Novolog) 0 unit SUBCUT QIDACANDBED [facility]; Protocol Last Admin: 03/03/18 06:18 Dose: Not Given Levofloxacin (Levaquin) 250 mg PO Q24H [facility] Stop: 03/04/18 21:01 Last Admin: 03/02/18 21:39 Dose: 250 mg Magnesium Oxide (Magnesium Oxide) 400 mg PO BID [facility] Last Admin: 03/03/18 08:14 Dose: 400 mg Megestrol Acetate (Megace 40 Mg/Ml Susp) 400 mg PO DAILY [facility] Last Admin: 03/03/18 08:14 Dose: 400 mg Metoprolol Tartrate (Lopressor) 5 mg IVPUSH Q4H PRN PRN Reason: Tachycardia Ondansetron HCl (Zofran Odt) 4 mg PO Q6H PRN PRN Reason: nausea, able to take PO Ondansetron HCl (Zofran) 4 mg IV Q6H PRN PRN Reason: Nausea/Vomiting Oral Electrolytes (Thermotabs) 2 each PO TID [facility] Last Admin: 03/03/18 08:29 Dose: 2 each Polyethylene Glycol (Miralax) 17 gm PO DAILY PRN PRN Reason: Constipation Prednisone (Prednisone) 20 mg PO DAILY [facility] Stop: 03/05/18 09:01 Last Admin: 03/03/18 08:14 Dose: 20 mg Prednisone (Prednisone) 10 mg PO DAILY [facility] Stop: 03/08/18 09:01 Saccharomyces Boulardii (Florastor) 250 mg PO BID [facility] Last Admin: 03/03/18 08:14 Dose: 250 mg Senna/Docusate Sodium (Senna Plus) 1 tab PO BID PRN PRN Reason: Constipation Sertraline HCl (Zoloft) 25 mg PO DAILY [facility] Last Admin: 03/03/18 08:14 Dose: 25 mg Simvastatin (Zocor) 40 mg PO DAILY [facility] Last Admin: 03/03/18 08:14 Dose: 40 mg Sodium Chloride (Saline Flush) 10 ml FLUSH ASDIRECTED PRN PRN Reason: Keep Vein Open Discontinued Medications Benazepril HCl (Lotensin) 5 mg PO DAILY [facility] Last Admin: 02/24/18 08:36 Dose: 5 mg Famotidine (Pepcid) 20 mg PO BID [facility] Last Admin: 02/25/18 20:35 Dose: 20 mg Furosemide (Lasix) 20 mg IVPUSH NOW ONE Stop: 02/23/18 19:05 Last Admin: 02/23/18 19:25 Dose: 20 mg Furosemide (Lasix) 20 mg IVPUSH NOW ONE Stop: 02/24/18 09:38 Last Admin: 02/24/18 10:05 Dose: 20 mg Furosemide (Lasix) 20 mg IVPUSH NOW ONE Stop: 02/27/18 09:11 Last Admin: 02/27/18 09:37 Dose: 20 mg Furosemide (Lasix) 20 mg IVPUSH DAILY [facility] Stop: 03/01/18 09:00 Last Admin: 03/01/18 08:18 Dose: 20 mg Furosemide (Lasix) 20 mg IVPUSH NOW ONE Stop: 02/28/18 14:01 Last Admin: 02/28/18 13:54 Dose: 20 mg Furosemide (Lasix) 20 mg IVPUSH ONETIME ONE Stop: 03/01/18 15:01 Last Admin: 03/01/18 14:29 Dose: 20 mg Furosemide (Lasix) 20 mg IVPUSH NOW ONE Stop: 03/02/18 16:03 Last Admin: 03/02/18 16:22 Dose: 20 mg Sodium Chloride (Normal Saline) 1,000 mls @ 250 mls/hr IV ASDIRECTED [facility] Last Admin: 02/23/18 17:50 Dose: 250 mls/hr Ceftriaxone Sodium 2 gm/ (Sodium Chloride) 100 mls @ 100 mls/hr IV Q24H [facility] Last Admin: 02/23/18 10:34 Dose: 100 mls/hr Magnesium Sulfate 2 gm/ Premix 50 mls @ 25 mls/hr IV ONETIME ONE Stop: 02/23/18 14:27 Last Admin: 02/23/18 13:26 Dose: 25 mls/hr Ceftriaxone Sodium 2 gm/ (Sodium Chloride) 100 mls @ 100 mls/hr IV Q24H [facility] Ceftriaxone Sodium 2 gm/ (Sodium Chloride) 100 mls @ 100 mls/hr IV Q24H [facility] Last Admin: 02/23/18 15:42 Dose: Not Given Ceftriaxone Sodium 2 gm/ (Sodium Chloride) 100 mls @ 100 mls/hr IV Q24H [facility] Last Admin: 02/25/18 11:31 Dose: 100 mls/hr Dextrose/Sodium Chloride (Dextrose 5%-Normal Saline) 1,000 mls @ 100 mls/hr IV ASDIRECTED [facility] Stop: 02/24/18 05:14 Last Admin: 02/23/18 19:37 Dose: 100 mls/hr Dextrose/Sodium Chloride (Dextrose 5%-Normal Saline) 1,000 mls @ 75 mls/hr IV ASDIRECTED [facility] Potassium Chloride 10 meq/ (Premix) 100 mls @ 100 mls/hr IV Q1H [facility] Stop: 02/24/18 12:44 Magnesium Sulfate 2 gm/ Premix 50 mls @ 25 mls/hr IV ONETIME ONE Stop: 02/24/18 11:35 Last Admin: 02/24/18 09:43 Dose: Not Given Potassium Chloride 10 meq/ (Premix) 100 mls @ 100 mls/hr IV Q1H [facility] Stop: 02/24/18 15:59 Last Admin: 02/24/18 15:47 Dose: Not Given Magnesium Sulfate 2 gm/ Premix 50 mls @ 25 mls/hr IV ONETIME ONE Stop: 02/24/18 12:59 Last Admin: 02/24/18 11:09 Dose: 25 mls/hr Doxycycline Hyclate 100 mg/ (Sodium Chloride) 100 mls @ 100 mls/hr IV Q12H [facility] Last Admin: 02/25/18 04:18 Dose: 100 mls/hr Levofloxacin/Dextrose 500 mg/ (Premix) 100 mls @ 100 mls/hr IV ONETIME ONE Stop: 02/25/18 22:59 Last Admin: 02/25/18 21:08 Dose: 100 mls/hr Levofloxacin/Dextrose 250 mg/ (Premix) 50 mls @ 50 mls/hr IV Q24H [facility] Last Admin: 02/26/18 21:05 Dose: 50 mls/hr Magnesium Sulfate 4 gm/ Premix 100 mls @ 300 mls/hr IV ONETIME ONE Stop: 03/01/18 11:21 Last Admin: 03/01/18 12:04 Dose: Not Given Magnesium Sulfate 4 gm/ Premix 100 mls @ 25 mls/hr IV ONETIME ONE Stop: 03/01/18 16:14 Last Admin: 03/01/18 12:04 Dose: 25 mls/hr Magnesium Oxide (Magnesium Oxide) 400 mg PO Q4H [facility] Stop: 02/27/18 13:16 Last Admin: 02/27/18 13:20 Dose: 400 mg Magnesium Oxide (Magnesium Oxide) 400 mg PO ONETIME ONE Stop: 02/28/18 08:21 Last Admin: 02/28/18 08:34 Dose: 400 mg Methylprednisolone Sodium Succinate (Solu-Medrol) 60 mg IVPUSH Q12H [facility] Last Admin: 02/25/18 22:31 Dose: 60 mg Methylprednisolone Sodium Succinate (Solu-Medrol) 60 mg IVPUSH Q24H [facility] Last Admin: 02/27/18 21:57 Dose: 60 mg Morphine Sulfate (Morphine) 0.5 mg IVPUSH Q2H PRN PRN Reason: Pain (severe 7-10) Stop: 02/24/18 12:25 Ondansetron HCl (Zofran) 4 mg IVPUSH ONETIME ONE Stop: 02/23/18 08:33 Last Admin: 02/23/18 08:53 Dose: 4 mg Oral Electrolytes (Thermotabs) 1 each PO BID [facility] Last Admin: 02/28/18 08:22 Dose: 1 each Oral Electrolytes (Thermotabs) 2 each PO BID [facility] Last Admin: 03/01/18 08:16 Dose: 2 each Potassium Chloride (Klor-Con M20) 40 meq PO ONETIME ONE Stop: 02/24/18 09:32 Last Admin: 02/24/18 09:51 Dose: 40 meq Potassium Chloride (Potassium Chloride Solution) 40 meq PO ONETIME ONE Stop: 02/24/18 15:46 Last Admin: 02/24/18 16:02 Dose: 40 meq Potassium Chloride (Potassium Chloride) 40 meq PO ONETIME ONE Stop: 03/02/18 10:01 Last Admin: 03/02/18 11:20 Dose: 40 meq Potassium Chloride (Potassium Chloride) 40 meq PO ONETIME ONE Stop: 03/02/18 15:01 Last Admin: 03/02/18 16:18 Dose: 40 meq Prednisone (Prednisone) 0 mg PO .Daily Taper [place]; Taper Stop: 03/09/18 10:44 Prednisone (Prednisone) 40 mg PO DAILY [place] Stop: 03/02/18 09:01 Last Admin: 03/02/18 08:49 Dose: 40 mg Vancomycin HCl (Pharmacy To Dose - Vancomycin) 1 dose .XX ASDIRECTED [place]ERVA - Exam Quality Assessment: Reports: DVT Prophylaxis. Denies: Supplemental Oxygen, Urine Catheter General: Reports: Alert, Oriented, Cooperative, No Acute Distress HEENT: Reports: Pupils Equal, Pupils Reactive, EOMI, Mucous Membr. Moist/[place] Neck: Reports: Supple Lungs: Reports: Clear to Auscultation, Normal Respiratory Effort, Decreased Breath Sounds Cardiovascular: Reports: Regular Rate, Regular Rhythm GI/Abdominal Exam: Normal Bowel Sounds, Soft, Non-Tender, No Organomegaly, No Distention, No Abnormal Bruit, No Mass, Pelvis Stable (Female) Exam: Deferred Rectal (Female) Exam: Deferred Back Exam: Reports: Normal Inspection, Decreased Range of Motion Extremities: Normal Inspection, Normal Range of Motion, Non-Tender, Normal Capillary Refill, Pedal Edema (<1+ edema feet bilaterally ) Skin: Reports: Warm, Dry, Intact Neurological: Reports: No New Focal Deficit Psy/Mental Status: Reports: Alert, Normal Affect, Normal Mood
[2018-03-06] MEDS ORDERED: predniSONE 10 MG Tab PO SCH (09:00)
== END 2018-03-03 13:29 | DRG 177 ==
LOC: JD.ED 08:25 → UNDOADMIN 11:59 → JD.MS 11:59
PROVIDERS: ADMIT Internal Medicine; ATTEND Internal Medicine
DX: A41.9 Sepsis, unspecified organism (principal); J15.211 Pneumonia due to Methicillin susceptible Staphylococcus aureus; I50.33 Acute on chronic diastolic (congestive) heart failure; I21.A1 Myocardial infarction type 2; N39.0 Urinary tract infection, site not specified; E87.2 Acidosis; E87.1 Hypo-osmolality and hyponatremia; R78.81 Bacteremia; R11.2 Nausea with vomiting, unspecified; I11.0 Hypertensive heart disease with heart failure; B96.1 Klebsiella pneumoniae [K. pneumoniae] as the cause of diseases classified elsewhere; B95.2 Enterococcus as the cause of diseases classified elsewhere; E83.51 Hypocalcemia; E87.6 Hypokalemia; I35.0 Nonrheumatic aortic (valve) stenosis; F32.9 Major depressive disorder, single episode, unspecified; R06.02 Shortness of breath; M54.9 Dorsalgia, unspecified; M25.552 Pain in left hip; M25.551 Pain in right hip; M25.562 Pain in left knee; M25.561 Pain in right knee; R26.2 Difficulty in walking, not elsewhere classified; R53.81 Other malaise; R42 Dizziness and giddiness; E83.42 Hypomagnesemia; R53.83 Other fatigue; E86.0 Dehydration; E11.9 Type 2 diabetes mellitus without complications; R55 Syncope and collapse; R62.7 Adult failure to thrive; H91.90 Unspecified hearing loss, unspecified ear; J84.10 Pulmonary fibrosis, unspecified; R91.1 Solitary pulmonary nodule; R11.0 Nausea; E78.5 Hyperlipidemia, unspecified; R63.4 Abnormal weight loss; R53.1 Weakness; Z79.84 Long term (current) use of oral hypoglycemic drugs; Z90.49 Acquired absence of other specified parts of digestive tract; Z79.899 Other long term (current) drug therapy
CPT/HCPCS: 36415; 71045; 71045-26; 71046; 71046-26; 80048; 80053; 81001; 82009; 82553; 82962; 83605; 83690; 83735; 83880; 83930; 84484; 85025; 85610; 85652; 86140; 86738; 87040; 87070; 87077; 87086; 87088; 87186; 87205; 87486; 87581; 87633; 87641; 87798; 87804; 87899; 93005; 93010; 93306; 94667; 94668; 96361; 96365; 96375; 97110-GO; 97110-GP; 97116-GP; 97162-GP; 97166-GO; 97530-GO; 97530-GP; 97535-GO; 99285-25; A9270-GY; J0696; J1650; J1815-GY; J1940; J1956; J2405; J2920; J3475; J3480; J7030; J7040; J7042